=== PATIENT | female | born 1975 | race Caucasian/White ===

== ENCOUNTER 2022-05-23 14:02 | Outpatient (CLI) | payer OTHER, SELFPAY ==
--- NOTE | ~2022-05-23 | MMUS_ITS ---
EXAMINATION: MM diagnostic cristian BI w kimberly, US breast RT limited HISTORY: Palpable right breast abnormality superior aspect of the right breast TECHNIQUE: Additional 3-D tomosynthesis images of the breasts were performed and synthetic 2-D images were generated. CAD analysis was submitted and interpreted. High resolution Limited right breast ult rasound was performed. COMPARISON: No prior studies for comparison. BREAST PARENCHYMAL COMPOSITION: The breasts are heterogeneously dense, which may obscure small masses FINDINGS: MAMMOGRAPHIC FINDINGS: The left breast is stable without evidence for malignancy. There are focal asymmetries with ill-defin ed margins in the mid lateral aspect of the right breast. ULTRASOUND: Limited right breast ultrasound: At 9:00 there is a cluster of cysts measuring up to 9 mm in aggregat e, likely benign. At 12:00, 9 cm from the nipple there is an oval circumscribed hyperechoic mass mathew uring 1.9 cm with parallel orientation, no posterior features and no internal vascularity. At 12:00, 7 cm from the nipple there is an oval hyperechoic mass with parallel orientation, no internal vascula rity and no posterior features, both these likely represent benign lipomas. IMPRESSION: 1. Probable benign right breast masses. 2. Recommend 6 month follow-up diagnostic right mammogram and ultrasound. BI-RADS category 3, probably benign findings. Reviewed, dictated and finalized at location A. IMPRESSION: 1. Probable benign right breast masses. 2. Recommend 6 month follow-up diagnostic right mammogram and ultrasound. BI-RADS category 3, probably benign findings.
== END 2022-05-23 14:03 | disposition home or self-care (01) ==
LOC: ANHIMG 14:07
PROVIDERS: PCP Nurse Practitioner; Visit Provider Nurse Practitioner
DX: N63.0 Unspecified lump in unspecified breast (principal); R92.8 Other abnormal and inconclusive findings on diagnostic imaging of breast
CPT/HCPCS: 76642; 77062; 77066; G0279

== ENCOUNTER 2022-11-12 01:11 | Emergency (ER) | payer OTHER, SELFPAY ==
[2022-11-12 01:12] VITALS: BP 147/89; PULSE 77; RESP 16; TEMP 36.3; O2SAT 100
--- NOTE | 2022-11-12 04:18 | ED.GENADULT ---
HPI - General Adult General Chief complaint: Back Pain/Injury Stated complaint: sciatic nerve hurting really bad Time Seen by Provider: 11/12/22 03:55 History of Present Illness HPI narrative: Is a 46-year-old female who presents the emergency department with chief complaint of back pain and pain down the right leg. Patient reports she has prior history of sciatica and reports she started having pain in the lumbar region reports it radiates down to her right gluteal area down the right leg. Patient denies foot drop denies saddle anesthesia denies bowel or bladder incontinence and denies urinary retention. Patient reports no trauma reports no prior history of IVDA no prior history of recent dental work or valvular heart disease. Related Data Allergies Allergy/AdvReac Type Severity Reaction Status Date / Time No Known Allergies Allergy Unknown Verified 11/12/22 04:27 NKA TO FOOD MEDS DYES, OR Allergy Unknown Other Uncoded 11/12/22 04:27 LATEX. NO KNOWN DRUG ALLERGIES Allergy Y Uncoded 11/12/22 04:27 (Class Allergy) Review of Systems Review of Systems: A 10 system review of systems was completed on the patient and is negative except for what is stated in the HPI. Nursing and ancillary documentation was reviewed. [facility] Past Medical History Medical History Abnormal Pap smear of cervix 07/15/2018 lgsil +hpv Anxiety History of endometrial biopsy (05/25/19) HPV in female Hypertension Polycystic ovarian syndrome Surgical History Surgical History History of appendectomy (~2005) History of cholecystectomy (~2007) History of colposcopy with cervical biopsy 08/04/18 LGSIL ANDREA 1 History of dilation and curettage (05/19/02) 05/19/02 hscope d&c/dx lscope/chromopertubation--infertility History of laparoscopy (05/19/02) 05/19/02 hscope d&c/dx lscope/chromopertubation--infertility History of ovarian cystectomy History of tubal ligation (09/07/12) History of ventral hernia repair (03/13/20) incarcerated epigastric ventral hernia repair with mesh Family History Family History Mother Diabetes mellitus Hypertension Depressive disorder Daughter Depressive disorder Father Carcinoma of colon Exam Narrative: GENERAL: Well-appearing, well-nourished, and in no acute distress. HEAD: Normocephalic, atraumatic. EYES: PERRLA and EOMI. ENT: Nares clear, no rhinorrhea or epistaxis. Mucous membranes moist. NECK: Supple. CHEST: Clear to auscultation. No respiratory distress. HEART: Regular rate and rhythm. No murmur heard. Normal peripheral pulses. ABDOMEN: Soft, nontender, nondistended, normal active bowel sounds. EXTREMITIES: Normal range of motion. No edema. Tenderness to palpation of the right SI joint area. SKIN: Warm, dry, no rash. NEURO: No focal deficits. Alert and oriented x3. No saddle anesthesia, no foot drop PSYCH: Normal mood and affect. Course Vital Signs Vital signs: Vital Signs Temperature 36.3 C L 11/12/22 01:12 Pulse Rate 77 11/12/22 01:12 Respiratory Rate 16 11/12/22 01:12 Blood Pressure 147/89 H 11/12/22 01:12 Pulse Oximetry 100 11/12/22 01:12 Oxygen Delivery Room Air 11/12/22 01:12 Temperature 36.3 C L 11/12/22 01:12 Pulse Rate 77 11/12/22 01:12 Respiratory Rate 16 11/12/22 01:12 Blood Pressure 147/89 H 11/12/22 01:12 Pulse Oximetry 100 11/12/22 01:12 Oxygen Delivery Room Air 11/12/22 01:12 Medical Decision Making [facility] Narrative Medical decision making narrative: Differential diagnosis includes sciatica, cauda equina, epidural abscess. Patient is not febrile no history of IVDA no history of other intrinsic risk factors for epidural abscess. Patient has no focal neurological deficit. Patient has no signs of cauda equina with a negative foot dr
[2022-11-12] MEDS: ORPHENADRINE CITRATE 100 MG TABLET.ER PO (04:28)
[2022-11-12] MEDS: HYDROcodone/acetaminophen (*CRX) 5-325 MG TABLET 1 TAB PO (04:28)
[2022-11-12] MEDS: KETOROLAC 30 MG/ML VIAL (*BKC) IM (04:29)
[2022-11-12 04:50] VITALS: BP 138/70; PULSE 74; RESP 16; O2SAT 98
== END 2022-11-12 04:51 | disposition home or self-care (01) ==
PROVIDERS: Emergency Provider Emergency Medicine; PCP Internal Medicine
DX: M54.41 Lumbago with sciatica, right side (principal); I10 Essential (primary) hypertension; E28.2 Polycystic ovarian syndrome; Z90.49 Acquired absence of other specified parts of digestive tract
CPT/HCPCS: 96372; 99284; A9270; J1100; J1885

== ENCOUNTER 2024-01-09 19:45 | Emergency (ER) | payer OTHER, SELFPAY ==
--- NOTE | ~2024-01-09 | XR_ITS ---
XR chest 1V portable DATE: 01/09/2024 21:27 INDICATION: Upper respiratory infection TECHNIQUE: Portable upright AP chest on 01/05 3/2 and 24 at 2127 hours COMPARISON: None FINDINGS: Normal heart size. No hilar or mediastinal enlargement. No pulmonary infiltrate or consolidation, pleural effusion or pulmonary vascular congestion or pneumo thorax is detected. Included skeletal structures are unremarkable. Apparent surgical clips (motion) of, right upper quadrant, likely due to cholecystectomy. IMPRESSION: No active cardiopulmonary disease Reviewed, dictated and finalized at location A. [employer]
[2024-01-09 19:56] VITALS: BP 139/96; PULSE 102; RESP 20; TEMP 37.2; O2SAT 99
--- NOTE | 2024-01-09 21:18 | ED.URI ---
HPI - URI/Sore Throat General Chief Complaint: Upper Respiratory Infection Stated Complaint: upper resp Time Seen by Provider: 01/09/24 21:06 History of Present Illness HPI Narrative: 40-year-old female presenting to the emergency room with a chief complaint of chills body aches, nonproductive cough, sore throat, ear pain. She states that she felt similar 2 months prior was diagnosed with upper respiratory infection but was not given any kind antibiotic treatments according to herself. She states she has tried lczn-rvz-iirxvfd medications at home without any relief her symptoms. States that she had to call off work today for her illness. Denies any chest pain or difficulty in breathing but does note a cough and wrist takes deep breath. no measured fevers at home. She does have sick contacts and is present with her daughter as another patient here in the room. Related Data Allergies Allergy/AdvReac Type Severity Reaction Status Date / Time No Known Allergies Allergy Unknown Verified 01/09/24 20:04 NKA TO FOOD MEDS DYES, OR Allergy Unknown Other Uncoded 01/09/24 20:04 LATEX. NO KNOWN DRUG ALLERGIES Allergy Y Uncoded 01/09/24 20:04 (Class Allergy) Review of Systems Review of Systems: As reviewed above in H[facility] Past Medical History Medical History Abnormal Pap smear of cervix 07/15/2018 lgsil +hpv Anxiety History of endometrial biopsy (05/25/19) HPV in female Hypertension Polycystic ovarian syndrome Surgical History Surgical History History of appendectomy (~2005) History of cholecystectomy (~2007) History of colposcopy with cervical biopsy 08/04/18 LGSIL ANDREA 1 History of dilation and curettage (05/19/02) 05/19/02 hscope d&c/dx lscope/chromopertubation--infertility History of laparoscopy (05/19/02) 05/19/02 hscope d&c/dx lscope/chromopertubation--infertility History of ovarian cystectomy History of tubal ligation (09/07/12) History of ventral hernia repair (03/13/20) incarcerated epigastric ventral hernia repair with mesh Family History Family History Mother Diabetes mellitus Hypertension Depressive disorder Daughter Depressive disorder Father Carcinoma of colon Social History Social History Smoking status: Current every day smoker Do You Feel Safe in your Home?: Yes Lack of Transportation: YES Lack of Food: Sometimes True Current Housing: I Have Housing Concerned About Future Housing: No Difficulty Paying Gas/Electric Bills: No Difficulty Paying for Meds: YES Currently Unemployed: No Education: Decline to Answer Difficulty w/ Childcare or Family Care: No Exam Narrative: GENERAL: [Well-appearing, well-nourished, and in no acute distress.] HEAD: [Normocephalic, atraumatic.] EYES: [PERRLA and EOMI.] ENT: Nares clear, no rhinorrhea or epistaxis. Mucous membranes moist. congested-sounding in the upper airways NECK: Supple. CHEST: [Clear to auscultation. No respiratory distress.] no wheezing, rhonchi or rales HEART: [Regular rate and rhythm]. No murmur heard. [Normal peripheral pulses.] ABDOMEN: [Soft, nondistended], [nontender], [No rigidity or guarding] EXTREMITIES: Normal range of motion. [No edema.] SKIN: Warm, dry, no rash. NEURO: [No focal deficits]. Alert and oriented [x3.] PSYCH: [Normal mood and affect.] Course Vital Signs Vital signs: Vital Signs Temperature 37.2 C 01/09/24 19:56 Pulse Rate 102 H 01/09/24 19:56 Respiratory Rate 20 01/09/24 19:56 Blood Pressure 139/96 H 01/09/24 19:56 Pulse Oximetry 99 01/09/24 19:56 Oxygen Delivery Room Air 01/09/24 19:56 Temperature 37.2 C 01/09/24 19:56 Pulse Rate 102 H 01/09/24 19:56 Respiratory Rate 20 01/09/24 19:56 Blood Pressure 139/96 H 01/09/24 19:56 Pulse Oximetry 100 01/09/24 21:29 Oxygen Delivery Room Air 01/09/24 21:29 MDM - URI/Sore Throat MDM Narrative Medical decision making narrative: 48-year-old female presenting to the emergency depart with upper respiratory symptoms including cough, congestion, sore throat, ear pain and chills. No measurable fevers at home. Took COVID test that was negative at home. States it feels very similar to her recent upper respiratory infection 2 months prior. Does have positive sick contacts and is present with her daughter who was another patient in the emergency department presently for similar symptoms. Patient overall appears well, has no respiratory distress, clear lung sounds bilaterally, no wheezing, rhonchi or rales. She does have some congestion. has tried glrc-gzo-kxhkfik therapies at home without any relief of her symptoms. Symptoms going on for last 4 days. Patient overall appears well and likely has an upper respiratory infection versus bronchitis. Most likely viral etiology in nature however given the recent viral URI she could also be having superimposed infection that could be bacterial in nature but we will reassess after laboratory studies, strep swab, COVID fluid RSV swab and a chest x-ray. She was provide symptomatic relief with 60 mg of pseudoephedrine and Flonase in both nares. Patient felt some improvement after the Sudafed and Flonase. Her cover flu RSV and strep swabs were all negative. The chest x-ray was independent reviewed by myself and interpreted by radiology. No appreciable consolidations, mass, pneumonia or any other concerning features. No acute cardiothoracic process according to Radiology. Patient was inquired about antibiotics at this time given that she has failed outpatient bmad-iod-drjjvdw medications and this is her 2nd time having similar symptoms. Ultimately decision was made to send the patient with azithromycin Z-Tony to her preferred local pharmacy. We did discuss viral versus bacterial causes and recommended treatments for continued symptomatology at home including Flonase, Sudafed, Mucinex Or dextromethorphan as needed for cough. Script sent to her pharmacy and patient was stable for discharge home at this time. Medical Records Attestation: I reviewed the patient's medical records. Lab Data Attestation: I reviewed the patient's lab results. Labs: Lab Results 01/09/24 Range/Units 21:22 Influenza A (RT-PCR) Negative (Negative) Influenza B (RT-PCR) Negative (Negative) RSV (RT-PCR) Negative (Negative) SARS-CoV-2 RNA (RT-PCR) Negative (Negative) Group A Strep (PCR) Not detected (Negative) Imaging Data Attestation: I personally reviewed and interpreted this imaging study as follows: Radiologist's impression: Impressions Chest X-Ray 01/09/24 21:33 IMPRESSION: No active cardiopulmonary disease Discharge Plan Discharge Clinical Impression: Bronchitis, Upper respiratory infection Patient Disposition: Home, Self-Care Condition: Stable Instructions: Antibiotic Form, Upper Respiratory Infection (DC), Acute Bronchitis (ED) Additional Instructions: Please take the antibiotic as prescribed, qmdo-pjd-fugfqnz regimens at home including pseudoephedrine from the pharmacy, Mucinex, dextromethorphan as needed. Follow-up with your primary care provider. Prescriptions: New azithromycin [Zithromax TRI-TONY] 500 mg tablet 500 mg PO DAILY 5 Days Qty: 5 0RF No Action cyclobenzaprine 10 mg tablet 10 mg PO TID PRN (Reason: muscle spasm) Qty: 21 0RF prednisone 20 mg tablet 40 mg PO DAILY 5 Days Qty: 10 0RF Follow-up/Referrals: Brenna,Hardy Cardoza MD [Primary Care Provider] - Time of Disposition: 22:25
[2024-01-09 21:29] VITALS: O2SAT 100
[2024-01-09] MEDS: FLUTICASONE PROPIONATE 0.05% NA SPR 16 GM BTL (*BKC) 2 SPRAY NASAL (21:33)
[2024-01-09] MEDS: PSEUDOEPHEDRINE HCL 30 MG TABLET 60 MG PO (21:33)
[2024-01-09 21:52] LABS: Strep Group A RT-PCR NOT DETECTED (Negative)
[2024-01-09 22:07] LABS: Influenza A QL RT-PCR Negative (Negative); Influenza B QL RT-PCR Negative (Negative); RSV RNA, RT-PCR Negative (Negative); SARS-CoV-2 RNA PCR Negative (Negative)
== END 2024-01-09 22:40 | disposition home or self-care (01) ==
PROVIDERS: Physician Assistant; Emergency Provider Student in an Organized Health Care Education/Training Program; PCP Internal Medicine
DX: J06.9 Acute upper respiratory infection, unspecified (principal); J40 Bronchitis, not specified as acute or chronic; Z20.822 Contact with and (suspected) exposure to COVID-19; I10 Essential (primary) hypertension; E28.2 Polycystic ovarian syndrome; F17.200 Nicotine dependence, unspecified, uncomplicated; Z90.49 Acquired absence of other specified parts of digestive tract
CPT/HCPCS: 71045; 87637; 87651; 99283; A9270

== ENCOUNTER 2024-08-03 12:58 | Outpatient (CLI) | payer OTHER, MEDICAID, SELFPAY ==
[2024-08-03 14:15] LABS: Alanine Aminotransferase 50 U/L (6-35); Albumin Level 3.8 g/dL (3.5-5.1); Alkaline Phosphatase 129 U/L (38-126); Anion Gap 7 mmol/L (4-12); Aspartate Amino Transferase 40 U/L (14-36); Bilirubin,Total 0.3 mg/dL (0.2-1.3); Blood Urea Nitrogen 8 mg/dL (7-17); Calcium 8.7 mg/dL (8.4-10.2); Carbon Dioxide 21 mmol/L (22-30); Chloride 106 mmol/L (98-107); Estimated Glomerular Filt Rate > 60; Glucose 117 mg/dL (65-110); Potassium 3.8 mmol/L (3.4-5.0); Sodium 134 mmol/L (137-145); Total Protein 6.7 g/dL (6.3-8.2)
--- OUTSIDE RECORDS SUMMARY | 2024-08-03 14:39 | XMS_ITS | Data Portability ---
Author Organization [facility] [place] Address [address] [place] [address] Care Team Providers Care District Agent Name Role Phone CECILIA BANDA MD Primary Care Provider [phone] Assessment No assessment recorded. Plan of Treatment Reminders Order Date Submit Date Provider Last Modified By Organization Details Last Modified Time Details Appointments SURG PRE OP 2024 04:30P Gisselle YING MD Not available Not available Not available Robotic TLH 2024 10:30A Gisselle YING MD Not available Not available Not available SURG POST OP 2024 03:00P Gisselle YING MD Not available Not available Not available Lab None recorded. Referral None recorded. Procedures None recorded. Surgeries robotic assisted hysterect kim with salpingec nile (SURG) 2024 025 [id number] [facility], [address] [place] [address], [id number], 07/06/2024 15:29:27 total hysterect kim, laparosco pic, with bilateral salpingec nile (SURG) 2022 023 [email or web address] [facility], [address] [place] [address], [id number], 12/15/2022 20:04:57 Imaging None recorded. Medication Orders None recorded. Patient TargetsNo targets recorded. Patient InstructionsNo instructions recorded. Reason for Referral None Reported. Results Created Date Observation Date Name Description Value Unit Range Abnormal Flag Note LastModifiedBy Organization Detail LastModifiedTime 06/03/19 23 06/02/2022 CT/GC AND TRICH OMONA S VAGIN POOJA (RRNA ), URINE chlamydia trachomatis, PCR Negati ve negati ve Not Available [facility] (Lab) [address], [place], [address], 06/03/2022 12:45:56 06/03/19 23 06/02/2022 CT/GC AND TRICH OMONA S VAGIN POOJA (RRNA ), URINE neisseria gonorrhoeae, PCR Negati ve negati ve Not Available [facility] (Lab) [address], [place], [address], 06/03/2022 12:45:56 06/03/19 23 06/02/2022 CT/GC AND TRICH OMONA S VAGIN POOJA (RRNA ), URINE trichomonas vaginalis ribosomal RNA (rrna) Positi ve negati ve abnormal Prese nce of Trich omona s vagin pooja (by NANCY) Not Available [facility] (Lab) [address], [place], [address], 06/03/2022 12:45:56 07/18/19 23 07/17/2022 CT/GC AND TRICH OMONA S VAGIN POOJA (RRNA ), URINE chlamydia trachomatis, PCR Negati ve negati ve Not Available [facility] (Lab) [address], [place], [address], 07/18/2022 16:34:00 07/18/19 23 07/17/2022 CT/GC AND TRICH OMONA S VAGIN POOJA (RRNA ), URINE neisseria gonorrhoeae, PCR Negati ve negati ve Not Available [facility] (Lab) [address], [place], [address], 07/18/2022 16:34:00 07/18/19 23 07/17/2022 CT/GC AND TRICH OMONA S VAGIN POOJA (RRNA ), URINE trichomonas vaginalis ribosomal RNA (rrna) Negati ve negati ve Not Available [facility] (Lab) [address], [place], [address], 07/18/2022 16:34:00 07/25/19 23 07/24/2022 SURGI YURIY PATHO LOGY surgical pathology SEE RESULT S BELOW CASE REPOR T: Surgi yuriy Patho logy Repor t Case: Autho stefany vera Provi ioana: Thelma Ying MD Colle cted: 07/24 1745 Order ing Locat ion: [place] [facility] Recei ana maria: 07/25 0318 Patho logis t: Liliane Mendez MD Speci men: Endoc ervix , ECC FINAL DIAGN OSIS: Endoc ervix , curet tage: -Ecto cervi yuriy tissu e with low-g rade squam ous intra epith elial lesio n (ANDREA- 1). -Unre marka ble endoc ervic al tissu e Elect vern farley d by Liliane Mendez MD on 023 at 1:14 PM ----- ----- ----- ----- ----- ----- ----- ----- ----- ----- ----- ----- ----- ----- ----- ----- ----- ---- CLINI YURIY INFOR MATIO N: n87.9 MICRO SCOPI C DESCR IPTIO N: A micro scopi c exami natio n was perfo rmed. GROSS DESCR IPTIO N: A. Endoc ervix . The speci men is label ed with the patie nt's name, demog raphi cs ECC . Recei ana maria in forma keren is a 2.0 x 2.0 x 0.2 cm aggre gate of rivera-b rown tissu e mixed with mucoi d mater ial and blood clot. The entir e speci men is submi tted in one casse tte. Gross ed by [employer] Not Available [facility] (Lab) [address], [place], [address], 07/25/2022 14:17:43 10/22/19 23 05/23/2022 MAMMO , diagn ostic , digit al, bilat eral No observ ation record ed. [facility] [address], [place], [address], 10/24/2022 15:44:53 Result Notes None recorded. Procedures Surgical History Date Name Laterality Status Provider Name and Address Organization Details Recorded Time 07/25/19 23 Colposcopy completed Reddy Ying MD [address], [place], [address], [facility] 07/24/2022 20:42:58 07/25/[address] [facility] 07/24/2022 16:46:39 07/19/19 23 Colposcopy completed [facility] 05/04/2024 16:06:24 03/20/19 23 Date of Last Pap Smear completed [facility] 07/23/2022 14:31:05 02/16/19 20 Endometrial Ablation completed [facility] 05/04/2024 16:07:48 Tubal Ligation completed [facility] 07/24/2022 16:46:49 Appendectomy completed [facility] 07/24/2022 16:46:56 Imaging Results None recorded. Procedure Notes None recorded. Medical Equipment None Reported. Allergies Allergen ID Allergen Name Allergen Category Reaction Reaction Severity Criticality Documentation Date Start Date Code Code System Note Provider Name and Address Organization Details Recorded Time tramadol medicatio n Not available Not available Not available 06/05/2022 08620 RxNorm Lexi Talbert [facility] 15:30:34 Medications Name Sig Start Date Stop Date Status Note LastModified by Organization Details LastModified Time medroxyprog esterone 10 mg tablet TAKE 1 TABLET BY MOUTH EVERY DAY 03/20 completed Not Available Not Available Not Available prednisone 10 mg tablet TAKE 1 TAB BY MOUTH 3 TIMES A DAY X 3 DAYS, 1 TAB 2 TIMES A DAY X 2 DAYS,1 TAB ONCE X1 DAY 03/20 completed Not Available Not Available Not Available doxycycline hyclate 100 mg capsule TAKE 1 CAPSULE BY MOUTH TWICE A DAY FOR 7 DAYS 07/17 completed Not Available Not Available Not Available azithromyci n 250 mg tablet TAKE 2 TABLETS BY MOUTH TODAY, THEN TAKE 1 TABLET DAILY FOR 4 DAYS 05/04 completed Not Available Not Available Not Available ibuprofen 800 mg tablet TAKE 1 TABLET BY MOUTH EVERY 8 HOURS 03/20 completed Not Available Not Available Not Available benzonatate 200 mg capsule TAKE 1 CAPSULE BY MOUTH THREE TIMES A DAY NEEDED 03/20 completed Not Available Not Available Not Available valacyclovi r 1 gram tablet TAKE 2 TABLETS BY MOUTH EVERY 12 HOURS FOR 1 DAY 05/04 completed Not Available Not Available Not Available meclizine 12.5 mg tablet TAKE 1 TABLET 3 TIMES A DAY BY ORAL ROUTE. 03/20 completed Not Available Not Available Not Available metronidazo le 500 mg tablet TAKE 1 TABLET BY MOUTH TWICE A DAY FOR 7 DAYS 07/17 completed Not Available Not Available Not Available amlodipine 5 mg tablet TAKE 1 TABLET BY MOUTH EVERY DAY FOR 30 DAYS 05/04 completed Not Available Not Available Not Available acyclovir 400 mg tablet TAKE 1 TABLET BY MOUTH EVERY 8 HOURS 03/20 completed Not Available Not Available Not Available tramadol 50 mg tablet TAKE 1 TABLET BY MOUTH EVERY 6 TO 8 HOURS NEEDED 03/20 completed Not Available Not Available Not Available ondansetron 8 mg disintegrat ing tablet DISSOLVE 1 TABLET ON TONGUE TWICE A DAY FOR 2 DAYS 07/17 completed Not Available Not Available Not Available pantoprazol e 40 mg tablet,mary yed release TAKE 1 TABLET BY MOUTH EVERY DAY 03/20 completed Not Available Not Available Not Available lisinopril 20 mg-hydrochl orothiazide 25 mg tablet 2024 active Not Available Not Available Not Avai lable montelukast 10 mg tablet 03/20 completed Not Available Not Available Not Available levofloxaci n 500 mg tablet 03/20 completed Not Available Not Available Not Available methylpredn isolone 4 mg tablets in a dose pack TAKE 6 TABLETS ON DAY 1 DIRECTED ON PACKAGE AND DECREASE BY 1 TAB EACH DAY FOR A TOTAL OF 6 DAYS 05/04 completed Not Available Not Available Not Available ondansetron 4 mg disintegrat ing tablet PLACE 2 TABLETS ON TONGUE 3 TIMES A DAY NEEDED. 03/20 completed Not Available Not Available Not Available fluticasone propionate 50 mcg/actuati on nasal spray,suspe nsion ADMINISTE R 2 SPRAYS INTO EACH NOSTRIL EVERY DAY 05/04 completed Not Available Not Available Not Available doxycycline hyclate 100 mg tablet TAKE 1 TABLET BY MOUTH 2 TIMES PER DAY FOR 14 DAYS 05/04 completed Not Available Not Available Not Available naproxen 500 mg tablet TAKE 1 TABLET BY MOUTH TWICE A DAY 03/20 completed Not Available Not Available Not Available azithromyci n 500 mg tablet TAKE 1 TABLET BY MOUTH EVERY DAY FOR 5 DAYS 05/04 completed Not Available Not Available Not Available cyclobenzap rine 5 mg tablet TAKE 1 TABLET 3 TIMES A DAY BY ORAL ROUTE. 03/20 completed Not Available Not Available Not Available Vitals Date Recorded Body height Body mass index (BMI) Body weight Systolic blood pressure Diastolic blood pressure Provider Name and Address Organization Details Last Updated DateTime 05/04/2024 162.56 cm 39.5 kg/m2 171434.2 5 g 145 mm[Hg] 82 mm[Hg] Isabel Ty [facility] 16:02:54 Date Recorded Body height Systolic blood pressure Diastolic blood pressure Provider Name and Address Organization Details Last Updated DateTime 06/02/2022 162.56 cm 155 mm[Hg] 98 mm[Hg] Dianne Nuñez [facility] 06/02/2022 15:02:11 Date Recorded Body height Body mass index (BMI) Body weight Systolic blood pressure Diastolic blood pressure Provider Name and Address Organization Details Last Updated DateTime 07/17/2022 162.56 cm 41 kg/m2 718705.5 8 g 146 mm[Hg] 96 mm[Hg] Sarah Martins [facility] 3 14:55:15 Date Recorded Body height Body mass index (BMI) Body weight Systolic blood pressure Diastolic blood pressure Provider Name and Address Organization Details Last Updated DateTime 07/24/2022 162.56 cm 40.7 kg/m2 621005.3 9 g 164 mm[Hg] 103 mm[Hg] Yolanda [facility] 3 15:32:22 Date Recorded Body height Body mass index (BMI) Body weight Systolic blood pressure Diastolic blood pressure Provider Name and Address Organization Details Last Updated DateTime 11/07/2022 162.56 cm 40.5 kg/m2 345624.8 g 164 mm[Hg] 96 mm[Hg] Yolanda [facility] 3 14:43:40 Social History Question Answer Notes LastModified by [employer] Details LastModified Time Tobacco Smoking Status Never [facility]oker [facility] 03/20/2022 11:35:47 Are You Blind Or Do You Have Difficulty Seeing? No Information n ot available 03/20/2022 In The 14 Days Before Symptom Onset, Have You Had Close Contact With A Laboratory-confirm ed COVID-19 While That Case Was Ill? No [email or web address] Information n ot available 07/17/2022 In The 14 Days Before Symptom Onset, Have You Had Close Contact With A Person Who Is Under Investigation For COVID-19 While That Person Was Ill? No [email or web address] Information not available 07/17/2022 Have You Been To An Area Known To Be High Risk For COVID-19? No [email or web address] Information not available 07/17/2022 Are You Deaf Or Do You Have Serious Difficulty Hearing? No Information not available 03/20/2022 What Type Of Diet Are You Following? REGULAR Information n ot available 03/20/2022 Do You Have Difficulty Walking Or Climbing Stairs? No Information not available 03/20/2022 Sex: Unknown Functional Status Question Answer Note LastModified by [employer] ion Details LastModified Time What is your level of alcohol consumption? None Information not available 03/20/2022 Are you able to walk? YESWOREST Information not available 03/20/2022 Are you able to care for yourself? Yes Information not available 03/20/2022 Do you have difficulty dressing or bathing? No Information not available 03/20/2022 What is your exercise level? None Information not available 03/20/2022 Mental Status None recorded. Family History Relationship Description Onset Age of this Age Resolved Age Notes LastModified by Organization Details LastModified Time Mother Diabetes mellitus [email or web address] Not available 03/2022 11:35:01 Mother Essential hypertension [email or web address] Not available 03/20/2022 11:35:10 Medical History Condition Response Allergies (Food, seasonal, environmental ) N Other N Breast Cancer N Drug/Latex Allergies/Reactions N Blood Transfusion N Dermatologic Disorders N Lung Disease N Defects or Inherited Disease N Breast Problem N Gestational Diabetes N Hematologic disorders N Anesthesia Complications N History of STI Y Deep Vein Thrombosis N Polycystic ovary syndrome N Anxiety Disorder N Autoimmune disease N Arthritis N Infertility N Polyps N Acid Reflux (GERD) N History of abnormal pap Y Cancer N Stroke N Varicosities N Neurologic/Epilepsy N Endometriosis N High Cholesterol N Headaches N Fibromyalgia N Kidney Disease N Heart Problems N Kidney or Bladder Problems N Thyroid Problems N GI Problems N Eating Disorder N Anemia N Art (IVF or FET) N Psychiatric Illness N Ovarian Cancer N Diabetes N Pulmonary (TB, Asthma) N Hepatitis/Liver Disease N No Past Medical History N Eczema N Urinary Tract Infection N Abuse/Domestic Violence N Asthma N Trauma/Violence N Depression/ depression N Heart Disease N Pre-Eclampsia N Hypertension Y Osteoporosis N Thrombophilias N Gynecological History Statement/Question Response Abnormal Pap Y Flow Heavy Date of LMP 04/27/2024 STIs/STDs Y HPV Vaccine N Colposcopy 07/18/2022 Duration of Flow (days) 6 Current Control Method Tubal Ligat ion Are cycles usually normal Y Frequency of Cycle (Q days) 28 Sexually Active? Y Menses Monthly Y Age of first menstrual cycle 13 Date of Last Pap Smear 03/20/2022 Sexual Problems? N Desired Control Method Hysterectom y LMP Approximate Obstetrics History GPAL:G 5 P 0 0 0 5 Type Value Living 5 Total 5 Past Encounters Encounter ID Performer Location Encounter Start Date Encounter Closed Date Diagnosis/Indication Diagnosis SNOMED-CT Code Diagnosis ICD10 Code Diagnosis Note [id number] Bharati KATHY Hare [place] [address] [address] 03/20/2022 11:05:14 03/20/2022 15:14:03 Breast lump 47750571 N63.0 Abnormal u terine bleeding 0352507164 9100 N93.9 Skin tag 366531860 L91.8 Irregular bowel habits 281580687 R19.4 Hemorrhoids 75088089 K64 .9 Gynecologi c examination 56460239 Z01.419 Suggested Calcium with Vitamin D 1200-1500m g daily. Patient advised to get an annual flu shot in the fall and she could obtain at [facility] or [facility] care clinic. Also to obtain TDap vaccinatio n if you have not had one in the last 10 years. Recommend yearly mammograms . Encouraged monthly self breast exams. Encourage safe sexual practices, to use condoms and limit partners if not already in a monogamous relationsh ip. Engage in daily exercise of low impact aerobic exercise 45-60 minutes 4-5 times weekly. Avoid tobacco and illicit drugs as well as using moderation with alcohol intake less than 1-2 8 oz beverages daily. This lifestyle behavior pattern will lead to less health conditions and longer life span. If BMI greater than 25 weight watchers or dietary consult advised. All questions have been answered. Patient appears to understand informatio n, but if you have any questions please call or respond to this email. [facility]. Periods continue to be heavy, no change since her ablation. Lasting 4 days, changing pads every 20 minutes on the first 2 days of her period. She often has accidents. We discussed further evaluation need, pelvic u/s and labs orderedRec ords release signedHx of abnormal pap smear with colposcopy in 2020, unsure result. No paps sincePap done todaySTI testing added to papSkin tag noted on vulva, we discussed removal optionshem orrhoids on and off x 1 year. We discussed stool softners, increase fiber, increase water. Referral sent to colorectal surgery and GI. Has not had a colonoscop y yet.Breast lump felt in right breast at 1 o'clock, noticed 3 months ago per patient. Breast imaging ordered.Flagr testing discussedB P elevated. States she is seeing PCP for BP checks weekly due to uncontroll ed HTN. She checks it at home. No symptoms. ED precaution s discussed. She has f/u with PCP scheduled. RTC for pelvic u/s and f/u appointmen t Time spent in visit is a total of 50 mins with at least 50% of visit consisting of counseling and review of plan of care. [id number] Reddy Ying MD [place] [address],[place] [address] 04/15/2022 14:09:30 04/15/2022 15:37:50 Abnormal uterine bleeding 4795716992 9100 N93.9 [id number] Reddy Ying MD [place] [address],[place] [address] 04/23/2022 15:36:47 04/23/2022 16:44:20 Infection by Trichomonas 24834380 A59.9 Menorrhagia 706601627 N9 2.0 Uterine leiomyoma 261638 05 D25.9 this patient is a 46-year-ol d female who presents for follow-up on Trichomona s. She is unable to tolerate metronidaz ole. She keeps vomiting with. We going to try to dissolve 1 dose of 2 g. We talked about menorrhagi a and fibroids. We spent over 40 minutes face-to-fa ce. More than 50% was counseling . Talked about treatment of Trichomona s and intolerant person due to GI symptoms. We talked about uterine fibroids, menorrhagi a, treatment options, surgical options,. Patient status post ablation. We talked about hysterecto my. She will return discussed treatment options and make a decision. She will return for test of cure. [id number] KATHY Booker [place] [address],[place] [address] 06/02/2022 14:55:00 06/02/2022 16:04:47 Infection by Trichomonas 69894898 A59.9 [facility] GC/CT/Tric h sentcondom use encouraged BP elevated. States she has had blurry vision/hea daches on and off for the past few days. States she has notified PCP of this. Recommende d ED visit for further evaluation . Has someone to take her, declines transport. Needs to f/u with PCP after ED visit Time spent in visit is a total of 20 mins with at least 50% of visit consisting of counseling and review of plan of care. Venereal d isease screening 329811852 Z11.3 [id number] KATHY Booker [place] [address],[place] [address] 07/17/2022 14:46:37 07/17/2022 15:29:41 Infection by Trichomonas 49194598 A59.9 [place] sentcondom use encouraged has colpo scheduled - encouraged to attend this appointmen t Time spent in visit is a total of 15 mins with at least 50% of visit consisting of counseling and review of plan of care. BP precaution s discussed, she is following with PCP Venereal d isease screening 646510392 Z11.3 [id number] Reddy Ying MD [place] [address],[place] [address] 07/24/2022 15:18:35 07/25/2022 13:30:23 Abnormal cervical Papanicolaou smear 732203837 R87.619 colposcopy was performed. It was unsatisfac tory exam. Aceto-whit e epithelium peeled to be at the central portion of the cervix the external os. It was well sampled with endocervic al curettage. [id number] Reddy Ying MD [place] [address],[place] [address] 11/07/2022 14:29:06 11/07/2022 15:19:25 Menorrhagia 054115289 N92.0 This patient is a 46-year-ol d female with severe menorrhagi a. She has failed endometria l ablation. She would like definitive surgical treatment. She has bleeding that is affecting her quality of life, activities daily living, her interperso nal relationsh ips, relationsh ips with her children. She would like to move forward with hytatments terectomy. We will perform total laparoscop ic hysterecto my bilateral salpingo-o ophorectom y. Spent 40 minutes face-to-fa ce. I explained the procedure in detail. More than 50% was counseling . We agreed to proceed with surgery. patient has 1 very large uterine fibroid. We discussed myomas. We discussed the etiology, natural history, Uterine leiomyoma 069002 05 D25.9 [id number] Reddy Ying MD [place] [address] [address] 05/04/2024 15:33:44 05/04/2024 16:35:03 Menorrhagia 582049129 N92.0 This patient is a 48-year-ol d female presents for heavy vaginal bleeding. She has longstandi ng very heavy bleeding. Her menses are regular. However, they require double protection . Patient has accidents, getting blood on her bedding and clothing. Is affected work. She changes a pad or tampon every hour. She leaks blood around the pad and tampon. This bleeding has a profound impact on her quality of life and her activities of daily living. Patient has large uterine myoma. We discussed treatment options. The treatment of choice here is hysterecto my. We agreed to robotic assisted hysterecto my with bilateral salpingect kim. The patient understand s the procedure. The procedure was described to the patient in great detail. the patient also understand s the risks. The risks were also explained in detail. She understand s that injuries May occur during surgery. She understand s these injuries can result in hospitaliz ation, more surgery, and severe illness. She understand s there is risk of hemorrhage and infection. I spent more than 30 minutes on the patient's care in total. Patient has stress incontinen ce, likely mixed urinary incontinen ce, she is to see Dr. La. We will make referral. Health Concerns Section Related Observation LastModified by Organization Detai ls LastModified Time None Recorded Concern Status LastModified by Organization Details LastModified Time None Recorded Advance Directives Directive None Recorded Payers Insurance Date Sequence Insurance Name Policy Number Policy Martin Covered Member ID Martin Member ID Guarantor Name 08/02/2024 1 [employer] [id number] Tess Arzatefidencio [id number] Tess Maria Isabel 07/06/2024 2 [place] [employer]PARTMENT OF PUBLIC AID Tess Nicolas [id number] Tess Nicolas 07/06/2024 2 [facility] - DOS ON OR AFTER 20 (MEDICAID REPLACEMENT - HMO) Tess Nicolas [id number] Tess Nicolas 07/06/2024 2 [facility] (MEDICAID HMO) Tess Nicolas [id number] Tess Nicolas 05/04/2024 1 [facility] - DOS ON OR AFTER 20 (MEDICAID REPLACEMENT - HMO) Tess Nicolas [id number] Tess Nicolas Notes Date Note Type Note Provider Name and Address Organization Details Recorded Time 06/02/2022 text/html 46yopresents for SHELLEY, (+) trichomonas 03/20/2022ompleted medication course, has not had IC sinceno symptoms, scheduled for colposcopy next week KATHY Booker [address], [place], [address], [facility] 06/02/2022 15:45:30 07/17/2022 text/html 46yopresents for TOCcompleted treatment, no longer with partnerno vaginal d/c, odors, itching KATHY Booker [address], [place], [address], [facility] 07/17/2022 15:27:55 07/24/2022 text/html 46-year-old fema timur who presents for colposcopy. Reddy Ying MD [address], [place], [address], [facility] 07/24/2022 20:45:01 11/07/2022 text/html This patient is a 46-year-old female with severe menorrhagia. She has failed endometrial ablation. She would like definitive surgical treatment. She has bleeding that is affecting her quality of life, activities daily living, her interpersonal relationships, relationships with her children. She would like to move forward with hytatmentsterectomy . We will perform total laparoscopic hysterectomy bilateral salpingo-oophorecto my. Spent 40 minutes [id number]. I explained the procedure in detail. More than 50% was counseling. We agreed to proceed with surgery. patient has 1 very large uterine fibroid. We discussed myomas. We discussed the etiology, natural history, Reddy Ying MD [address], [place], [address], [facility] 11/07/2022 15:18:48 05/04/2024 text/html This patient is a 48-year-old female presents for heavy vaginal bleeding. She has longstanding very heavy bleeding. Her menses are regular. However, they require double protection. Patient has accidents, getting blood on her bedding and clothing. Is affected work. She changes a pad or tampon every hour. She leaks blood around the pad and tampon. This bleeding has a profound impact on her quality of life and her activities of daily living. Patient has large uterine myoma. We discussed treatment options. The treatment of choice here is hysterectomy. We agreed to robotic assisted hysterectomy with bilateral salpingectomy. The patient understands the procedure. The procedure was described to the patient in great detail. the patient also understands the risks. The risks were also explained in detail. She understands that injuries May occur during surgery. She understands these injuries can result in hospitalization, more surgery, and severe illness. She understands there is risk of hemorrhage and infection. I spent more than 30 minutes on the patient's care in total. Reddy Ying MD [address], [place], [id number], [facility] 05/04/2024 16:32:26 OBGyn Episode Ob Episode Information Episode Created Date Number of Fetuses Patient Bloodtype Patient rh Status Prepregnancy Weight lbs Domestic Partner Domestic Partner Phone Father Name Press Reader Status 03/20/19 23 1 CLOSED Fetus Data First Name Last Name Admitted to NICU Weight (g) Sex Living Outcome Pediatric Complications Fetus ID Race Codes Race Delivery Type [id number] Vaginal Delivery Kings Calculation Initial Kings Date Initial Exam Date Initial Exam Provider Initial Ultrasound Date Last Menstrual Period Date Ultra Sound Weeks Gestation 0 Eighteen To Twenty Week Kings Update Ultra Sound Date Fundal Height At Umbil Quickening Date Ultra Sound Latest Weeks Gestation Final Kings Confirmed By Final Kings Confirmed Date Final Kings Date Ultra Sound Latest Days Gestation 0 0 Menstrual History Last Menstrual Date Menses Monthly On Bcp Conception Prior Menses Frequency Hcg Plus Date Menarche Onset Age Delivery Information Delivery Date Delivery Type Labor Anesthesia Weeks Gestation Incision Type Labor Labor Length Hrs Delivered By Post Complications Tubal Sterilization Discharge Date Comments 3 Discharge Information Feeding Method Contraceptive Method Maternal HG B and HCT Levels Ob Episode Information Episode Created Date Number of Fetuses Patient Bloodtype Patient rh Status Prepregnancy Weight lbs Domestic Partner Domestic Partner Phone Father Name Press Reader Status 03/20/19 1 CLOSED Fetus Data First Name Last Name Admitted to NICU Weight (g) Sex Living Outcome Pediatric Complications Fetus ID Race Codes Race Delivery Type [id number] Vaginal Delivery Kings Calculation Initial Kings Date Initial Exam Date Initial Exam Provider Initial Ultrasound Date Last Menstrual Period Date Ultra Sound Weeks Gestation 0 Eighteen To Twenty Week Kings Update Ultra Sound Date Fundal Height At Umbil Quickening Date Ultra Sound Latest Weeks Gestation Final Kings Confirmed By Final Kings Confirmed Date Final Kings Date Ultra Sound Latest Days Gestation 0 0 Menstrual History Last Menstrual Date Menses Monthly On Bcp Conception Prior Menses Frequency Hcg Plus Date Menarche Onset Age Delivery Information Delivery Date Delivery Type Labor Anesthesia Weeks Gestation Incision Type Labor Labor Length Hrs Delivered By Post Complications Tubal Sterilization Discharge Date Comments 6 Discharge Information Feeding Method Contraceptive Method Maternal HG B and HCT Levels Ob Episode Information Episode Created Date Number of Fetuses Patient Bloodtype Patient rh Status Prepregnancy Weight lbs Domestic Partner Domestic Partner Phone Father Name Press Reader Status 03/20/19 1 CLOSED Fetus Data First Name Last Name Admitted to NICU Weight (g) Sex Living Outcome Pediatric Complications Fetus ID Race Codes Race Delivery Type [id number] Vaginal Delivery Kings Calculation Initial Kings Date Initial Exam Date Initial Exam Provider Initial Ultrasound Date Last Menstrual Period Date Ultra Sound Weeks Gestation 0 Eighteen To Twenty Week Kings Update Ultra Sound Date Fundal Height At Umbil Quickening Date Ultra Sound Latest Weeks Gestation Final Kings Confirmed By Final Kings Confirmed Date Final Kings Date Ultra Sound Latest Days Gestation 0 0 Menstrual History Last Menstrual Date Menses Monthly On Bcp Conception Prior Menses Frequency Hcg Plus Date Menarche Onset Age Delivery Information Delivery Date Delivery Type Labor Anesthesia Weeks Gestation Incision Type Labor Labor Length Hrs Delivered By Post Complications Tubal Sterilization Discharge Date Comments 1 Discharge Information Feeding Method Contraceptive Method Maternal HG B and HCT Levels Ob Episode Information Episode Created Date Number of Fetuses Patient Bloodtype Patient rh Status Prepregnancy Weight lbs Domestic Partner Domestic Partner Phone Father Name Press Reader Status 03/20/19 23 1 CLOSED Fetus Data First Name Last Name Admitted to NICU Weight (g) Sex Living Outcome Pediatric Complications Fetus ID Race Codes Race Delivery Type [id number] Vaginal Delivery Kings Calculation Initial Kings Date Initial Exam Date Initial Exam Provider Initial Ultrasound Date Last Menstrual Period Date Ultra Sound Weeks Gestation 0 Eighteen To Twenty Week Kings Update Ultra Sound Date Fundal Height At Umbil Quickening Date Ultra Sound Latest Weeks Gestation Final Kings Confirmed By Final Kings Confirmed Date Final Kings Date Ultra Sound Latest Days Gestation 0 0 Menstrual History Last Menstrual Date Menses Monthly On Bcp Conception Prior Menses Frequency Hcg Plus Date Menarche Onset Age Delivery Information Delivery Date Delivery Type Labor Anesthesia Weeks Gestation Incision Type Labor Labor Length Hrs Delivered By Post Complications Tubal Sterilization Discharge Date Comments 5 Discharge Information Feeding Method Contraceptive Method Maternal HG B and HCT Levels Ob Episode Information Episode Created Date Number of Fetuses Patient Bloodtype Patient rh Status Prepregnancy Weight lbs Domestic Partner Domestic Partner Phone Father Name Press Reader Status 03/20/19 23 1 CLOSED Fetus Data First Name Last Name Admitted to NICU Weight (g) Sex Living Outcome Pediatric Complications Fetus ID Race Codes Race Delivery Type [id number] Vaginal Delivery Kings Calculation Initial [place] Date Initial Exam Date Initial Exam Provider Initial Ultrasound Date Last Menstrual Period Date Ultra Sound Weeks Gestation 0 Eighteen To Twenty Week Kings Update Ultra Sound Date Fundal Height At Umbil Quickening Date Ultra Sound Latest Weeks Gestation Final Kings Confirmed By Final Kings Confirmed Date Final Kings Date Ultra Sound Latest Days Gestation 0 0 Menstrual History Last Menstrual Date Menses Monthly On Bcp Conception Prior Menses Frequency Hcg Plus Date Menarche Onset Age Delivery Information Delivery Date Delivery Type Labor Anesthesia Weeks Gestation Incision Type Labor Labor Length Hrs Delivered By Post Complications Tubal Sterilization Discharge Date Comments 6 Discharge Information Feeding Method Contraceptive Method Maternal HG B and HCT Levels
--- OUTSIDE RECORDS SUMMARY | 2024-08-03 14:39 | XMS_ITS | Data Portability ---
Author Organization [facility] Address [address] [place] [id number] Assessment No assessment recorded. Plan of Treatment Reminders Order Date Submit Date Provider Last Modified By Organization Details Last Modified Time Details Appointments None recorded. Lab vitamin D, 25-hydroxy, total, serum 2023 024 [facility], [address] [place] [address], [address], [place], [address], 4 08:38:35 lipid panel, serum 2023 024 [facility], [address] [place] [address], [address], [place], [address], 4 20:09:17 CMP, serum or plasma 2023 024 [facility], [address] [place] [address], [address], [place], [address], 4 20:09:18 CBC 2023 024 [facility], [address] [place] [address], [address], [place], [address], 4 20:09:18 Referral gastroenter ologist referral 2023 024 angie Loja MD, [address] [facility], [address], [place], [address], 4 17:15:31 ski base trimmer referral 2023 024 gracia Tripathi DPM, [address] [facility], [address], [place], [address], 4 00:11:51 Procedures None recorded. Surgeries None recorded. Imaging XR, knee, 3 view 2023 024 [facility] ([facility]), [address] [facility], [place], [address], 4 09:50:11 Medication Orders ibuprofen 600 mg tablet 2023 024 [id number], [address] [place], [address], 4 12:03:19 lisinopril 20 mg-hydrochl orothiazide 25 mg tablet 2023 024 [facility], [address] [place], [address], 4 12:03:19 Patient TargetsNo targets recorded. 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 Family history of cancer of colon Referring Physician: Saul Arambula, Internal Medicine, Encounter Date: 02/25/2023 Results Created Date Observation Date Name Description Value Unit Range Abnormal Flag Note LastModifiedBy Organization Detail LastModifiedTime 02/25/19 24 02/25/2023 LIPID PANEL cholesterol, total 191 mg/dL 100-19 9 Not Available [facility] Department [address] [place] [address], [address], 02/25/2023 20:09:17 02/25/19 24 02/25/2023 LIPID PANEL triglyceride s 123 mg/dL 0-149 Not Available [facility] Department [address] [place] [address], [address], 02/25/2023 20:09:17 02/25/19 24 02/25/2023 LIPID PANEL HDL cholesterol 55 mg/dL 40-999 Not Available [facility] Department [address] [place] [address], [address], 02/25/2023 20:09:17 02/25/19 24 02/25/2023 LIPID PANEL VLDL cholesterol yuriy 25 mg/dL 5-40 Not Available [facility] Department [address] [place] [address], [address], 02/25/2023 20:09:17 02/25/19 24 02/25/2023 LIPID PANEL LDL chol calc (nih) 129 mg/dL 0-99 above high normal Not Available [facility] Department [address] [place] [address], [address], 02/25/2023 20:09:17 02/25/19 24 02/25/2023 COMP. METAB OLIC PANEL (14) glucose 102 mg/dL 70-99 above high normal Not Available [facility] Department [address] [place] [address], [address], 02/25/2023 20:09:18 02/25/19 24 02/25/2023 COMP. METAB OLIC PANEL (14) BUN 6 mg/dL 6-24 Not Available [facility] Department [address] [place] [address], [address], 02/25/2023 20:09:18 02/25/19 24 02/25/2023 COMP. METAB OLIC PANEL (14) creatinine 0.70 mg/dL 0.76-1 .27 below low normal Not Available [facility] Department [address] [place] [address], [address], 02/25/2023 20:09:18 02/25/19 24 02/25/2023 COMP. METAB OLIC PANEL (14) eGFR 107 >=60 Units for eGFR value s are mL/mi n/1.7 3 The eGFR Calcu latio n has not been valid ated for patie nts under the age of 18. If test resul ts are displ ayed for a patie nt under the age of 18, disre анна that value . Not Available [facility] Department [address] [place] [address], [address], 02/25/2023 20:09:18 02/25/19 24 02/25/2023 COMP. METAB OLIC PANEL (14) BUN/creatini ne ratio 9 9-23 Not Available [facility] Department [address] [place] [address], [address], 02/25/2023 20:09:18 02/25/19 24 02/25/2023 COMP. METAB OLIC PANEL (14) sodium 139 mmol/ L 134-14 4 Not Available [facility] Department [address] [place] [address], [address], 02/25/2023 20:09:18 02/25/19 24 02/25/2023 COMP. METAB OLIC PANEL (14) potassium 4.8 mmol/ L 3.5-5. 2 Not Available [facility] Department [address] [place] [address], [address], 02/25/2023 20:09:18 02/25/19 24 02/25/2023 COMP. METAB OLIC PANEL (14) chloride 106 mmol/ L 96-106 Not Available [facility] Department [address] [place] [address], [address], 02/25/2023 20:09:18 02/25/19 24 02/25/2023 COMP. METAB OLIC PANEL (14) carbon dioxide, total 24 mmol/ L 20-29 Not Available [facility] Department [address] [place] [address], [place], [address], 02/25/2023 20:09:18 02/25/19 24 02/25/2023 COMP. METAB OLIC PANEL (14) calcium 9.4 mg/dL 8.7-10 .2 Not Available [facility] Department [address] [place], [address], 02/25/2023 20:09:18 02/25/19 24 02/25/2023 COMP. METAB OLIC PANEL (14) protein, total 6.7 g/dL 6.0-8. 5 Not Available [facility] Department [address] [place], [address], 02/25/2023 20:09:18 02/25/19 24 02/25/2023 COMP. METAB OLIC PANEL (14) albumin 4.0 g/dL 3.9-4. 9 Not Available [facility] Department [address] [place], [address], 02/25/2023 20:09:18 02/25/19 24 02/25/2023 COMP. METAB OLIC PANEL (14) globulin, total 2.7 g/dL 1.5-4. 5 Not Available [facility] Department [address] [place], [address], 02/25/2023 20:09:18 02/25/19 24 02/25/2023 COMP. METAB OLIC PANEL (14) A/G ratio 2.0 1.2-2. 2 Not Available [facility] Department [address] [place], [address], 02/25/2023 20:09:18 02/25/19 24 02/25/2023 COMP. METAB OLIC PANEL (14) bilirubin, total 0.3 mg/dL 0.0-1. 2 Not Available [facility] Department [address] [place], [address], 02/25/2023 20:09:18 02/25/19 24 02/25/2023 COMP. METAB OLIC PANEL (14) alkaline phosphatase 129 IU/L 44-121 above high normal Not Available [facility] Department [address] [place] [address], [address], 02/25/2023 20:09:18 02/25/19 24 02/25/2023 COMP. METAB OLIC PANEL (14) AST (SGOT) 21 IU/L 0-40 Not Available [facility] Department [address] [place] [address], [address], 02/25/2023 20:09:18 02/25/19 24 02/25/2023 COMP. METAB OLIC PANEL (14) ALT (SGPT) 21 IU/L 0-32 Not Available [facility] Department [address] [place] [address], [address], 02/25/2023 20:09:18 02/25/19 24 02/25/2023 CBC, PLATE LET, NO DIFFE RENTI AL WBC 9.4 x10e3 /uL 3.4-10 .8 Not Available [facility] Department [address] [place] [address], [address], 02/25/2023 20:09:18 02/25/19 24 02/25/2023 CBC, PLATE LET, NO DIFFE RENTI AL RBC 4.71 x10e6 /uL 3.77-5 .28 Not Available [facility] Department [address] [place] [address], [address], 02/25/2023 20:09:18 02/25/19 24 02/25/2023 CBC, PLATE LET, NO DIFFE RENTI AL hemoglobin 12.4 g/dL 11.1-1 5.9 Not Available [facility] Department [address] [place] [address], [address], 02/25/2023 20:09:18 02/25/19 24 02/25/2023 CBC, PLATE LET, NO DIFFE RENTI AL hematocrit 40.0 % 34.0-4 6.6 Not Available [facility] Department [address] [place], [address], 02/25/2023 20:09:18 02/25/1902/25/2023 CBC, PLATE LET, NO DIFFE RENTI AL MCV 85 fL 79-97 Not Available [facility] Department [address] [place], [address], 02/25/2023 20:09:18 02/25/1902/25/2023 CBC, PLATE LET, NO DIFFE RENTI AL MCH 26.3 pg 26.6-3 3.0 below low normal Not Available [facility] Department [address] [place] [address], [address], 02/25/2023 20:09:18 02/25/1902/25/2023 CBC, PLATE LET, NO DIFFE RENTI AL MCHC 31.0 g/dL 31.5-3 5.7 below low normal Not Available [facility] Department [address] [place] [address], [address], 02/25/2023 20:09:18 02/25/1902/25/2023 CBC, PLATE LET, NO DIFFE RENTI AL RDW 14.7 % 11.5-1 4.5 above high normal Not Available [facility] Department [address] [place] [address], [address], 02/25/2023 20:09:18 02/25/1902/25/2023 CBC, PLATE LET, NO DIFFE RENTI AL platelets 380 x10e3 /uL 150-45 0 Mean Plate let Volum e 10.5 fL 8.9-1 2.7 N Not Available [facility] Department [address] [place] [address], [address], 02/25/2023 20:09:18 02/25/1902/25/2023 CBC, PLATE LET, NO DIFFE RENTI AL NRBC 0 % 0-0 Not Available [facility] Department [address] [facility] [place], [address], 02/25/2023 20:09:18 02/25/19 24 02/26/2023 VITAM IN D, 25-HY DROXY vitamin D, 25-hydroxy 21.1 NG/mL 30.0-1 00.0 below low normal Vitam in D defic iency has been defin ed by the Insti tute of Medic ine and an Endoc rine Socie ty pract ice guide line as a level of serum 25-OH vitam in D less than 20 ng/mL (1,2) . The Endoc rine Socie ty [facility] defin e vitam in D insuf ficie ncy as a level betwe en 21 and 29 ng/mL (2). 1. IOM (Inst itute of Medic ine). 2010. Dieta ry refer ence intak es for calci um and D. Erendira jarvis [place]: [facility] . 2. Hernesto gary [place], Hallie lima [place], Kelsey off-F renee i BERGER, et al. Evalu ation , treat ment, and preve ntion of vitam in D defic iency : an Endoc rine Socie ty clini yuriy pract ice guide line. JCEM. 2010; 96(7) :1911 -30. Not Available [facility] ([facility]) [address] [facility], [place], [address], 02/26/2023 08:38:35 05/01/19 24 05/02/2023 VITAM IN B12 AND FOLAT E vitamin B12 616 pg/mL 232-12 45 Not Available [facility] ([facility]) [address] [facility], [place], [address], 05/02/2023 10:16:29 05/01/19 24 05/02/2023 VITAM IN B12 AND FOLAT E folate (folic acid), serum 3.1 NG/mL >3.0 A serum folat e alyson ntrat ion of less than 3.1 ng/mL is consi dered to repre sent clini yuriy defic iency . Not Available [facility] ([facility]) [address] [place], [address], 05/02/2023 10:16:29 05/01/19 24 05/02/2023 IRON AND TIBC iron bind.cap.(TI BC) 363 ug/dL 250-45 0 Not Available [facility] ([facility]) [address] [place], [address], 05/02/2023 10:16:30 05/01/19 24 05/02/2023 IRON AND TIBC UIBC 335 ug/dL 131-42 5 Not Available [facility] ([facility]) [address] [place], [address], 05/02/2023 10:16:30 05/01/19 24 05/02/2023 IRON AND TIBC iron 28 ug/dL 27-159 Not Available [facility] ([facility]) [address] [place], [address], 05/02/2023 10:16:30 05/01/19 24 05/02/2023 IRON AND TIBC iron saturation 8 % 15-55 alert low Not Available [facility] ([facility]) [address] [place], [address], 05/02/2023 10:16:30 05/01/19 24 05/02/2023 CAROLINA TIN ferritin 14 NG/mL 15-150 below low normal Not Available [facility] ([facility]) [address] [place], [address], 05/02/2023 10:16:31 Result Notes None recorded. Problems Name Problem SNOMED Code Status Onset Date Resolution Date Notes Provider Name and Address Organization Details Recorded Time Essential hypertensio n 22647372 Active 2023 Saul Arambula MD Attn: Kaci g,[address] [facility], [place], [address], [facility] - [facility] 4 11:39:33 Morbid obesity 319208226 Active 2023 Saul Arambula MD Attn: Accountshea g,[address] [facility], [place], [address], [place] - [facility] 4 11:39:48 Chronic back pain 143496823 Active 2023 Saul Arambula MD Attn: Kaci vera,[address] [facility], [place], [address], [place] [facility] 4 11:40:08 Chronic sciatica 747380438 Active 2023 Saul Arambula MD Attn: Accountshea g,[address] [facility], [place], [address], [place] [facility] 4 11:40:31 Feeling stressed 490104197 Active 2023 Saul Arambula MD Attn: Ramanshea vera,[address] [facility], [place], [address], [place] [facility] 4 11:40:46 Blurring of visual image 146739237 Active 2023 Fine print Saul Arambula MD Attn: Ramanshea g,[address] [facility], [place], [address], [place] [facility] 4 11:41:09 Pain of left knee region 4974705489958 09 Active 2023 Saul Arambula MD Attn: Ramanshea vera,[address] [facility], [place], [address], [place] [facility] 4 11:43:10 Thickened nails 808512122 Active 2023 Saul Arambula MD Attn: Ramanshea g,[address] [facility], [place], [address], [place] [facility] 4 11:45:46 Allergy to tramadol 776721324 Active 2023 Saul Arambula MD Attn: Kaci g,[address] [facility], [place], [address], [place] [facility] 4 11:46:07 Adult health examination Active 2023 Saul Arambula MD Attn: Kaci vera,[address] [facility], [place], [address], [place] [facility] 4 11:57:08 Family history of cancer of colon 808695136 Active 2023 Saul Arambula MD Attn: Kaci vera,[address] [facility], [place], [address], [place] - [facility] 4 12:00:17 Vitamin D deficiency 00304218 Active 2023 Saul Arambula MD Attn: Kaci vera,[address] [facility], [place], [address], [place] - [facility] 4 07:07:43 Blood substance level below reference range 012030721 Active 2023 Saul Arambula MD Attn: Kaci vera,[address] [facility], [place], [address], [place] - [facility] 4 07:09:08 Iron deficiency anemia 55726676 Active 2023 Saul Arambula MD Attn: Kaci vera,[address] [facility], [place], [address], [place] - [facility] 4 19:20:51 Problem Notes None recorded. Medical Equipment None Reported. Allergies Allergen ID Allergen Name Allergen Category Reaction Reaction Severity Criticality Documentation Date Start Date Code Code System Note Provider Name and Address Organization Details Recorded Time 163415 amoxicill in medicatio n Not available Not available Not available 02/25/2023 723 RxNorm Deya Arreola MA null, [place] - [facility] 4 11:11:31 122445 tramadol medicatio n hallucina tions moderate low 02/25/2023 43223 RxNorm Saul Arambula MD Attn: Kaci vera,[address] [facility], [place], [address], [place] - [facility] 4 11:48:27 Medications Name Sig Start Date Stop Date Status Note LastModified by Organization Details LastModified Time cyclobenzap rine 10 mg tablet TAKE 1 TABLET BY MOUTH EVERY 8 HOURS NEEDED. CUT IN HALF IF TOO SEDATING active Not Available Not Available No t Available doxycycline hyclate 100 mg capsule TAKE 1 CAPSULE BY MOUTH TWICE A DAY FOR 7 DAYS 02/25 completed Not Available Not Available Not Available azithromyci n 250 mg tablet TAKE 2 TABLETS BY MOUTH TODAY, THEN TAKE 1 TABLET DAILY FOR 4 DAYS 02/25 completed Not Available Not Available Not Available valacyclovi r 1 gram tablet TAKE 2 TABLETS BY MOUTH EVERY 12 HOURS FOR 1 DAY 02/25 completed Not Available Not Available Not Available prednisone 20 mg tablet TAKE 2 TABLETS BY MOUTH ONCE DAILY FOR 5 DAYS. TAKE WITH FOOD active Not Available Not Available No t Available metronidazo le 500 mg tablet TAKE 1 TABLET BY MOUTH TWICE A DAY FOR 7 DAYS 02/25 completed Not Available Not Available Not Available amlodipine 5 mg tablet TAKE 1 TABLET BY MOUTH EVERY DAY FOR 30 DAYS 02/25 completed Not Available Not Available Not Available peg-electro lyte solution 420 gram oral solution MIX AND TAKE DIRECTED active Not Available Not Available No t Available ondansetron 8 mg disintegrat ing tablet DISSOLVE 1 TABLET ON TONGUE TWICE A DAY FOR 2 DAYS 02/25 completed Not Available Not Available Not Available ferrous sulfate 325 mg (65 mg iron) tablet TAKE 1 TABLET BY MOUTH TWICE A DAY active Not Available Not Available No t Available diclofenac potassium 50 mg tablet TAKE 1 TABLET BY MOUTH THREE TIMES A DAY NEEDED FOR PAIN 02/25 completed Not Available Not Available Not Available lisinopril 20 mg-hydrochl orothiazide 25 mg tablet TAKE 1 TABLET BY MOUTH EVERY DAY active Not Available Not Available No t Available ergocalcife rol (vitamin D2) 1,250 mcg (50,000 unit) capsule TAKE 1 CAPSULE BY MOUTH ONE TIME PER WEEK active Not Available Not Available No t Available ibuprofen 600 mg tablet TAKE 1 TABLET BY MOUTH THREE TIMES A DAY WITH MEALS active Not Available Not Available No t Available methylpredn isolone 4 mg tablets in a dose pack TAKE 6 TABLETS ON DAY 1 DIRECTED ON PACKAGE AND DECREASE BY 1 TAB EACH DAY FOR A TOTAL OF 6 DAYS 02/25 completed Not Available Not Available Not Available fluticasone propionate 50 mcg/actuati on nasal spray,suspe nsion ADMINISTE R 2 SPRAYS INTO EACH NOSTRIL EVERY DAY 02/25 completed Not Available Not Available Not Available Vitals Date Recorded Body weight Body mass index (BMI) Body height Body temperature Oxygen saturation Oxygen saturation in Arterial blood by Pulse oximetry Heart rate Systolic blood pressure Diastolic blood pressure Provider Name and Address Organization Details Last Updated DateTime 4 317309. 61 g 40.2 kg/m2 162.56 cm 98 [degF] 98 % 98 % 78 /min 136 mm[Hg] 82 mm[Hg] Deya Arreola MA [facility] 11:12:40 Social History Question Answer Notes LastModified by Korrio Details LastModified Time Tobacco Smoking Status Former Smoker Saul Arambula MD Attn: Accounting,[address] [place], [address], [facility] 02/25/2023 11:27:08 What Was The Date Of Your Most Recent Tobacco Screening? 02/25/2023 Information not available 02/25/2023 At What Age Did You Start Smoking Tobacco? 17 Information not available 02/25/2023 Has Tobacco Cessation Counseling Been Provided? No Information not available 02/25/2023 How Many Years Have You Smoked Tobacco? 7 [email or web address] Information not available 02/25/2023 Sex: Unknown Functional Status Question Answer Note LastModified by Korrio Details LastModified Time Do you or have you ever used any other forms of tobacco or nicotine? No Information not available 02/25/2023 What is your level of alcohol consumption? Occasional [email or web address] Information not available 02/25/2023 Mental Status None recorded. Family History Nothing Reported. Medical History Condition Response High Blood Pressure Y Gynecological HistoryNo gynecological history recorded. Obstetrics History GPAL:G 0 P 0 0 0 0 Past Encounters Encounter ID Performer Location Encounter Start Date Encounter Closed Date Diagnosis/Indication Diagnosis SNOMED-CT Code Diagnosis ICD10 Code Diagnosis Note [id number] Saul Arambula MD [facility] (Adult Med) [address] [place] [address] 02/25/2023 10:50:39 03/04/2023 15:54:07 Pain of left knee region 6283682778 81565 M25.562 Essential hypertension 66568143 I10 Feeling stressed 9116523 06 Z73.3 Morbid obesity 339322438 E66.01 Chronic sciatica 7316358 01 M54.31 Get recent films Chronic back pain 360179 002 G89.29 Get recent films Blurring o f visual image 113535567 H53.8 Will see her ophthalmol ogist Thickened nails 05961991 5 Q84.5 Adult heal th examination 226715198 Z00.00 Family his tory of cancer of colon 301329837 Z80.0 Health Concerns Section Related Observation LastModified by Organization Detai ls LastModified Time None Recorded Concern Status LastModified by Organization Details LastModified Time None Recorded Advance Directives Directive None Recorded Payers Insurance Date Sequence Insurance Name Policy Number Policy Martin Covered Member ID Martin Member ID Guarantor Name 07/18/2023 1 [facility] ON OR AFTER 08/16/20 (MEDICAID REPLACEMENT - HMO) Tess Nicolas [id number] Tess Nicolas 02/26/2023 1 *SELF PAY* cheryle Nicolas Notes Date Note Type Note Provider Name and Address Organization Details Recorded Time 02/25/2023 text/html Pt switching PCP. Saul Arambula MD Attn: Accounting,[address] [place], [address], [facility] 02/25/2023 12:03:58 OBGyn Episode No OBEpisode recorded.
--- OUTSIDE RECORDS SUMMARY | 2024-08-03 14:39 | XMS_ITS | Data Portability ---
Author Organization [facility] [employer], Main Office Address [address] [place] [address] Care Team Providers Care Hair And Makeup Designer Name Role Phone CECILIA CEJA Primary Care Provider CECILIA CEJA Referring Provider Assessment No assessment recorded. Plan of Treatment Reminders Order Date Submit Date Provider Last Modified By Organization Details Last Modified Time Details Appointments None recorded. Lab None recorded. Referral physical therapist referral [address] [facility], [address] [place], [address], 3 08:36:40 Procedures None recorded. Surgeries None recorded. Imaging XR, lumbar spine 2022 023 [facility] ([facility]), [address] [place], [address], 3 21:14:10 XR, sacroiliac joint(s) 2022 023 [facility] ([facility]), [address] [place], [address], 3 21:15:17 Medication Orders tramadol 50 mg tablet [facility] Not available 3 15:00:45 diclofenac sodium 75 mg tablet,mary yed release 2022 023 [facility] [address] In [facility], [address] [place], [address], 3 16:32:40 cyclobenzap rine 5 mg tablet 2022 023 [facility] [address] In [facility], [address] [place] [address], [address], 3 16:32:40 Medrol (Tony) 4 mg tablets in a dose pack 2022 023 [place] [address] In [facility], [address] [place] [address], [address], 3 16:42:22 Zithromax Z-Tony 250 mg tablet 2022 023 [place] [id number] In [facility], [address] [place] [address], [address], 3 16:42:22 fluticasone propionate 50 mcg/actuati on nasal spray,suspe nsion 2022 023 [place] [address] In [facility], [address] [place] [address], [address], 3 16:42:22 Patient TargetsNo targets recorded. Patient InstructionsNo instructions recorded. Reason for Referral Physical Therapist Referral for Low back pain Referring Physician: Cecilia Ceja, Internal Medicine, Encounter Date: 12/09/2022 Results Created Date Observation Date Name Description Value Unit Range Abnormal Flag Note LastModifiedBy Organization Detail LastModifiedTime 10/30/19 22 10/29/2021 URINA LYSIS COMPL ETE/I RIS W/RFX pH 6.0 pH_un its 5.0-9. 0 Not Available [facility] (Lab) [address] [place], [address], 10/29/2021 13:30:29 10/30/19 22 10/29/2021 URINA LYSIS COMPL ETE/I RIS W/RFX color yellow Not Available [facility] (Lab) [address] [place], [address], 10/29/2021 13:30:29 10/30/19 22 10/29/2021 URINA LYSIS COMPL ETE/I RIS W/RFX appear turbid abnormal Not Available [facility] (Lab) [address] [place], [address], 10/29/2021 13:30:29 10/30/19 22 10/29/2021 URINA LYSIS COMPL ETE/I RIS W/RFX specific gravity 1.021 1.001- 1.030 Not Available [facility] (Lab) [address] [facility] [place], [address], 10/29/2021 13:30:29 10/30/19 22 10/29/2021 URINA LYSIS COMPL ETE/I RIS W/RFX leukocytes 250 funmilayo/u L negati ve- abnormal Not Available [facility] (Lab) [address] [place], [address], 10/29/2021 13:30:29 10/30/19 22 10/29/2021 URINA LYSIS COMPL ETE/I RIS W/RFX nitrite negati ve negati ve- Not Available [facility] (Lab) [address] [place], [address], 10/29/2021 13:30:29 10/30/19 22 10/29/2021 URINA LYSIS COMPL ETE/I RIS W/RFX protein 20 mg/dL negati ve- abnormal Not Available [facility] (Lab) [address] [facility] [place], [address], 10/29/2021 13:30:29 10/30/19 22 10/29/2021 URINA LYSIS COMPL ETE/I RIS W/RFX glucose normal mg/dL normal - Not Available [facility] (Lab) [address] [place], [address], 10/29/2021 13:30:29 10/30/19 22 10/29/2021 URINA LYSIS COMPL ETE/I RIS W/RFX ketones negati ve mg/dL negati ve- Not Available [facility] (Lab) [address] [place], [address], 10/29/2021 13:30:29 10/30/19 22 10/29/2021 URINA LYSIS COMPL ETE/I RIS W/RFX urobilinogen normal mg/dL normal - Not Available [facility] (Lab) [address] [place], [address], 10/29/2021 13:30:29 10/30/19 22 10/29/2021 URINA LYSIS COMPL ETE/I RIS W/RFX bilirubin negati ve mg/dL negati ve- Not Available [facility] (Lab) [address] [place], [address], 10/29/2021 13:30:29 10/30/19 22 10/29/2021 URINA LYSIS COMPL ETE/I RIS W/RFX blood negati ve mg/dL negati ve- Not Available [facility] (Lab) [address] [place], [address], 10/29/2021 13:30:29 10/30/19 22 10/29/2021 URINA LYSIS COMPL ETE/I RIS W/RFX white blood cells 0-8 /i??h pfi?? 0-8 Not Available [facility] (Lab) [address] [place], [address], 10/29/2021 13:30:29 10/30/19 22 10/29/2021 URINA LYSIS COMPL ETE/I RIS W/RFX red blood cells 5-10 /i??h pfi?? 0-4 abnormal Not Available [facility] (Lab) [address] [place], [address], 10/29/2021 13:30:29 10/30/19 22 10/29/2021 URINA LYSIS COMPL ETE/I RIS W/RFX bacteria occasi onal abnormal Not Available [facility] (Lab) [address] [place], [address], 10/29/2021 13:30:29 10/30/19 22 10/29/2021 URINA LYSIS COMPL ETE/I RIS W/RFX mucous many /i??l pfi?? abnormal Not Available [facility] (Lab) [address] [place], [address], 10/29/2021 13:30:29 10/30/19 22 10/29/2021 URINA LYSIS COMPL ETE/I RIS W/RFX squamous epithelial packed field /i??l pfi?? abnormal Not Available [facility] (Lab) [address] [place], [address], 10/29/2021 13:30:29 10/30/19 22 10/29/2021 TSH thyroid-stim ulating hormone 1.500 uIU/m L 0.465- 4.680 Not Available [facility] (Lab) [address] [place], [address], 10/29/2021 14:16:33 10/30/19 22 10/29/2021 LIPID PANEL LDL cholesterol, calculated 102 mg/dL 0-130 NIH MARY NSUS REPOR T RECOM MENDA TIONS FOR LDL: ADULT CHILD LOW RISK <130 <110 (OPTI MAL LDL) <100 ----- BORDE RLINE : 130-1 59 ----- HIGH RISK: >160 >130 A TRIGL YCERI DE RESUL T >400 INVAL IDATE S THE CALCU LATIO N FOR LDL FRACT IONAT ION - THE LDL RESUL T WILL NOT BE REPOR MERVIN. Not Available [facility] (Lab) [address] [place], [address], 10/29/2021 13:43:13 10/30/19 22 10/29/2021 LIPID PANEL cholesterol 178 mg/dL 140-19 9 NIH MARY NSUS RECOM MENDA TION FOR TRINA STERO L: ADULT CHILD LOW RISK: <200 <170 BORDE RLINE : <200- 239 ----- HIGH RISK: >240 >200 Not Available [facility] (Lab) [address] [place], [address], 10/29/2021 13:43:13 10/30/1910/29/2021 LIPID PANEL triglyceride s 108 mg/dL 0-150 NIH MARY NSUS REPOR T RECOM MENDA TION FOR TRIGL YCERI KRISTINA: ADULT CHILD LOW RISK: <150 ----- BODER LINE: 150-1 99 ----- HIGH RISK: >200 ----- Not Available [facility] (Lab) [address] [place], [address], 10/29/2021 13:43:13 10/30/1910/29/2021 LIPID PANEL HDL cholesterol 54 mg/dL 40- Not Available [facility] (Lab) [address] [place], [address], 10/29/2021 13:43:13 10/30/19 22 10/29/2021 COMPR EHENS GUNNAR METAB OLIC PANEL sodium 138 mmol/ L 137-14 5 Not Available [facility] (Lab) [address] [place], [address], 10/29/2021 13:43:03 10/30/19 22 10/29/2021 COMPR EHENS GUNNAR METAB OLIC PANEL potassium 4.2 mmol/ L 3.5-5. 1 Not Available [facility] (Lab) [address] [place], [address], 10/29/2021 13:43:03 10/30/19 22 10/29/2021 COMPR EHENS GUNNAR METAB OLIC PANEL chloride 105 mmol/ L 98-107 Not Available [facility] (Lab) [address] [place], [address], 10/29/2021 13:43:03 10/30/19 22 10/29/2021 COMPR EHENS GUNNAR METAB OLIC PANEL carbon dioxide 24 mmol/ L 22-30 Not Available [facility] (Lab) [address] [place], [address], 10/29/2021 13:43:03 10/30/19 22 10/29/2021 COMPR EHENS GUNNAR METAB OLIC PANEL anion gap 13.2 mmol/ L 14-22 low Not Available [facility] (Lab) [address] [place], [address], 10/29/2021 13:43:03 10/30/19 22 10/29/2021 COMPR EHENS GUNNAR METAB OLIC PANEL glucose 117 mg/dL 70-99 high Not Available [facility] (Lab) [address] [place], [address], 10/29/2021 13:43:03 10/30/19 22 10/29/2021 COMPR EHENS GUNNAR METAB OLIC PANEL BUN 8 mg/dL 8-19 Not Available [facility] (Lab) [address] [place], [address], 10/29/2021 13:43:03 10/30/19 22 10/29/2021 COMPR EHENS GUNNAR METAB OLIC PANEL creatinine 0.82 mg/dL 0.66-1 .25 Not Available [facility] (Lab) [address] [place], [address], 10/29/2021 13:43:03 10/30/19 22 10/29/2021 COMPR EHENS GUNNAR METAB OLIC PANEL GFR >60 Refer ence Range : [place] ge GFR Healt hy Adult : >60 mL/mi n/1.7 3 m2 Chron ic Kidne y Disea se: 15-60 mL/mi n/1.7 3 m2 Kidne y Failu re: <15/m L/min /1.73 m2 www.n iddk. nih.g ov The MDRD study equat ion has not been valid ated in child rafy <18 years of age; pregn ant women ; the elder ly >85 years of age; or in some racia l or ethni c subgr oups, such as Hisjose guadalupe nics. Outsi de the valid ated brent eters , estim ated GFR is less accur ate, requi ring clini yuriy judgm ent on a case- by-ca se basis . Clini yuriy inter preta tion for other races and ages must be made by the clini hortencia. The MDRD study equat ion has not been valid ated for the evalu ation of serum creat inine relat ed to nutri tami l statu s or medic ation usage . For perso ns <18 years of age, a pedia tric GFR calcu lator is avail able on the [facility] websi te: https ://henny w.gita pisano.o rg/pr ofess ional s/kdo qi/gf r_cal culat or Not Available [facility] (Lab) [address] [place], [address], 10/29/2021 13:43:03 10/30/19 22 10/29/2021 COMPR EHENS GUNNAR METAB OLIC PANEL alkaline phosphatase 112 U/L 38-126 Not Available [facility] (Lab) [address] [place], [address], 10/29/2021 13:43:03 10/30/19 22 10/29/2021 COMPR EHENS GUNNAR METAB OLIC PANEL alanine aminotransfe rase 21 U/L 0-35 Not Available [facility] (Lab) [address] [place], [address], 10/29/2021 13:43:03 10/30/19 22 10/29/2021 COMPR EHENS GUNNAR METAB OLIC PANEL aspartate aminotransfe rase 20 U/L 15-37 Not Available [facility] (Lab) [address] [place], [address], 10/29/2021 13:43:03 10/30/19 22 10/29/2021 COMPR EHENS GUNNAR METAB OLIC PANEL bilirubin, total 0.50 mg/dL 0.20-1 .30 Not Available [facility] (Lab) [address] [place], [address], 10/29/2021 13:43:03 10/30/19 22 10/29/2021 COMPR EHENS GUNNAR METAB OLIC PANEL calcium 9.6 mg/dL 8.4-10 .2 Not Available [facility] (Lab) [address] [place], [address], 10/29/2021 13:43:03 10/30/19 22 10/29/2021 COMPR EHENS GUNNAR METAB OLIC PANEL total protein 6.6 g/dL 6.3-8. 2 Not Available [facility] (Lab) [address] [place], [address], 10/29/2021 13:43:03 10/30/19 22 10/29/2021 COMPR EHENS GUNNAR METAB OLIC PANEL albumin 3.9 g/dL 3.4-5. 0 Not Available [facility] (Lab) [address] [place], [address], 10/29/2021 13:43:03 10/30/19 22 10/29/2021 COMPR EHENS GUNNAR METAB OLIC PANEL globulin 2.7 g/dL 2.6-4. 2 Not Available [facility] (Lab) [address] [place], [address], 10/29/2021 13:43:03 10/30/19 22 10/29/2021 COMPR EHENS GUNNAR METAB OLIC PANEL A/G ratio 1.4 ratio 1.0-2. 0 Not Available [facility] (Lab) [address] [place], [address], 10/29/2021 13:43:03 10/30/19 22 10/29/2021 URINA LYSIS COMPL ETE/I RIS W/RFX pH 6.0 pH_un its 5.0-9. 0 Not Available [facility] (Lab) [address] [place], [address], 10/29/2021 13:26:00 10/30/19 22 10/29/2021 URINA LYSIS COMPL ETE/I RIS W/RFX color yellow Not Available [facility] (Lab) [address] [place], [address], 10/29/2021 13:26:00 10/30/19 22 10/29/2021 URINA LYSIS COMPL ETE/I RIS W/RFX appear turbid abnormal Not Available [facility] (Lab) [address] [place], [address], 10/29/2021 13:26:00 10/30/19 22 10/29/2021 URINA LYSIS COMPL ETE/I RIS W/RFX specific gravity 1.021 1.001- 1.030 Not Available [facility] (Lab) [address] [place], [address], 10/29/2021 13:26:00 10/30/19 22 10/29/2021 URINA LYSIS COMPL ETE/I RIS W/RFX leukocytes 250 funmilayo/u L negati ve- abnormal Not Available [facility] (Lab) [address] [place], [address], 10/29/2021 13:26:00 10/30/19 22 10/29/2021 URINA LYSIS COMPL ETE/I RIS W/RFX nitrite negati ve negati ve- Not Available [facility] (Lab) [address] [place], [address], 10/29/2021 13:26:00 10/30/19 22 10/29/2021 URINA LYSIS COMPL ETE/I RIS W/RFX protein 20 mg/dL negati ve- abnormal Not Available [facility] (Lab) [address] [place], [address], 10/29/2021 13:26:00 10/30/19 22 10/29/2021 URINA LYSIS COMPL ETE/I RIS W/RFX glucose normal mg/dL normal - Not Available [facility] (Lab) [address] [place], [address], 10/29/2021 13:26:00 10/30/19 22 10/29/2021 URINA LYSIS COMPL ETE/I RIS W/RFX blood negati ve mg/dL negati ve- Not Available [facility] (Lab) [address] [place], [address], 10/29/2021 13:26:00 10/30/19 22 10/29/2021 URINA LYSIS COMPL ETE/I RIS W/RFX ketones negati ve mg/dL negati ve- Not Available [facility] (Lab) [address] [place], [address], 10/29/2021 13:26:00 10/30/19 22 10/29/2021 URINA LYSIS COMPL ETE/I RIS W/RFX urobilinogen normal mg/dL normal - Not Available [facility] (Lab) [address] [place], [address], 10/29/2021 13:26:00 10/30/19 22 10/29/2021 URINA LYSIS COMPL ETE/I RIS W/RFX bilirubin negati ve mg/dL negati ve- Not Available [facility] (Lab) [address] [place], [address], 10/29/2021 13:26:00 10/30/19 22 10/29/2021 URINA LYSIS COMPL ETE/I RIS W/RFX white blood cells 0-8 /i??h pfi?? 0-8 Not Available [facility] (Lab) [address] [place], [address], 10/29/2021 13:26:00 10/30/19 22 10/29/2021 URINA LYSIS COMPL ETE/I RIS W/RFX red blood cells 5-10 /i??h pfi?? 0-4 abnormal Not Available [facility] (Lab) [address] [place], [address], 10/29/2021 13:26:00 10/30/19 22 10/29/2021 URINA LYSIS COMPL ETE/I RIS W/RFX bacteria occasi onal abnormal Not Available [facility] (Lab) [address] [place], [address], 10/29/2021 13:26:00 10/30/19 22 10/29/2021 URINA LYSIS COMPL ETE/I RIS W/RFX mucous many /i??l pfi?? abnormal Not Available [facility] (Lab) [address] [place], [address], 10/29/2021 13:26:00 10/30/19 22 10/29/2021 URINA LYSIS COMPL ETE/I RIS W/RFX squamous epithelial packed field /i??l pfi?? abnormal Not Available [facility] (Lab) [address] [place], [address], 10/29/2021 13:26:00 10/30/19 22 10/29/2021 URINA LYSIS COMPL ETE/I RIS W/RFX unclassified cast 3 abnormal Not Available [facility] (Lab) [address] [place], [address], 10/29/2021 13:26:00 11/08/19 22 11/07/2021 HEMOG LOBIN A1C HA1C 5.4 % 4.0-6. 0 Diabe feroz Scree haris Crite ani: <5.7% Consi stent with absen ce of diabe feroz 5.7-6 .4% Consi stent with incre ased risk for diabe feroz (pred iabet es) >OR=6 .5% Consi stent with diabe feroz REFER ENCE: Diabe feroz Care 2016, 39(Patel ppl.1 ):s13 -s22 Not Available [facility] ([facility]) [address], [place], [address], 11/07/2021 22:16:17 11/26/19 22 07/30/2018 MAMMO , scree haris, digit al, bilat eral No observ ation record ed. [id number] Not Available 04/16/2022 03:35:59 11/29/19 22 11/26/2021 upper endos copy proce dure (EGD) (PROC ) No observ ation record ed. [id number] Not Available 04/16/2022 03:35:59 12/11/19 23 12/10/2022 XR, lumba r spine [facility] [address] [facility] [place] [address] Patien t Name: TESS NICOLAS ion #: [id number] Sex: F : 1975 0 Dictat ed By: Ray Burch Attend ing Physic monster: JULIAN CEJA ER Orderi Physic monster: JULIAN CEJA ER Exam Date: 2022 18:14 PM Exam Name: XR L SPINE 4V+ Admitt ing Diagno sis(es ): INDICA TION: Trauma . TECHNI QUE: Fronta l and latera l views of the lumbar spine were obtain ed. COMPAR JOHANN: None. FINDIN GS: . There are no fractu res or sublux ations . Verteb ral body height s and disc spaces are well mainta ined. Parave rtebra l soft tissue s are unrema rkable . IMPRES CAROLINE: 1. Of the visual ized spine, there is no eviden ce for fractu re or sublux ation. Electr onical ly Signed by: Ray uBrch at 2022 20:12: 53 PM Page 1 [email or web address] [facility] (Imaging) [address] [place], [address], 12/12/2022 16:34:03 12/11/19 23 12/10/2022 XR, sacro iliac joint (s) [facility] [address] [place] [address] Patien t Name: TESS NICOLAS Access ion #: [id number] Sex: F : 1975 0 Dictat ed By: Ray Burch Attend ing Physic monster: JULIAN CEJA Orderi ng Physic monster: JULIAN CEJA ER Exam Date: 2022 18:14 PM Exam Name: XR SACROI LIAC JOINTS Admitt ing Diagno sis(es ): Bilate ral SI joint radiog raph [facility]INIC [facility] INDICA TION: low back pain TECHNI QUE: 2 radiog raphic views of the bilate ral SI joint were obtain ed. Compar johann: none FINDIN GS: There is no eviden ce of acute fractu re or disloc ation. The visual ized joint space is well mainta ined. The alignm ent is anatom ical. Soft tissue s are unrema rkable . IMPRES CAROLINE: No acute fractu re or disloc ation. Electr onical ly Signed by: Ray Burch at 2022 20:14: 05 PM Page 1 [email or web address] [facility] (Imaging) [address] [place], [address], 12/12/2022 16:33:07 03/25/19 24 03/25/2023 colon oscop y scree haris (PROC ) No observ ation record ed. [email or web address] [facility] (Pre-Screen) [address] [place], [address], 03/25/2023 11:07:43 Result Notes Documentation Provider Name and Address Organization Details Recorded Time Xr, Lumbar Spine : [facility] [address] [place] [address] Patient Name: TESS NICOLAS Sex: F : 1975 Dictated By: Ray Burch Attending Physician: CECILIA CEJA Ordering Physician: CECILIA CEJA Exam Date: 12/10/2022 18:14 PM Exam Name: XR L SPINE 4V+ Admitting Diagnosis(es): INDICATION: Trauma. TECHNIQUE: Frontal and lateral views of the lumbar spine were obtained. COMPARISON: None. FINDINGS: . There are no fractures or subluxations. Vertebral body heights and disc spaces are well maintained. Paravertebral soft tissues are unremarkable. IMPRESSION: 1. Of the visualized spine, there is no evidence for fracture or subluxation. Page 1 EBENEZER [facility] [employer] 12/12/2022 16:34:03 Xr, Sacroiliac Joint(s) : [facility] [address] [place] [address] Patient Name: TESS NICOLAS Sex: F : 1975 Dictated By: Ray Burch Attending Physician: CECILIA CEJA Ordering Physician: CECILIA CEJA Exam Date: 12/10/2022 18:14 PM Exam Name: XR SACROILIAC JOINTS Admitting Diagnosis(es): Bilateral SI joint radiograph CLINICAL INDICATION: low back pain TECHNIQUE: 2 radiographic views of the bilateral SI joint were obtained. Comparison: none FINDINGS: There is no evidence of acute fracture or dislocation. The visualized joint space is well maintained. The alignment is anatomical. Soft tissues are unremarkable. IMPRESSION: No acute fracture or dislocation. Page 1 EBENEZER [facility] [employer] 12/12/2022 16:33:07 Problems Name Problem SNOMED Code Status Onset Date Resolution Date Notes Provider Name and Address Organization Details Recorded Time Anemia 832869012 Active 2022 Cecilia Ceja MD [address] [facility] [address], [place], [address] , [facility] 3 09:15:49 Blister of lip 29785047450 03 Active 2022 Nae waterman, RMA null, [facility] 3 17:03:41 Pain of knee region 0422831275 Completed 202111/25/2021 Not Available [facility] 3 03:26:36 Otalgia of left ear 7133565831 Completed 202111/25/2021 Not Available [facility] 3 03:26:36 Impacted cerumen in right ear 26652477706 34636 Completed 202111/25/2021 Not Available [facility] 3 03:26:36 Viral gastroent eritis 685500379 Completed 202111/25/2021 Not Available [facility] 3 03:26:36 Contusion of left knee 65696239143 613006 Completed 202111/25/2021 Not Available [facility] 3 03:26:37 Tendiniti s of right elbow 34912066419 764892 Completed 202111/25/2021 Not Available [facility] 3 03:26:37 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 2021 Not Available [facility] 3 03:26:37 Constipat ion 30624810 Completed Not Available [facility] 3 03:26:37 Acute sinusitis 58774569 Active 2021 Not Available [facility] 3 03:26:37 Acute sinusitis 24679484 Completed 202111/25/2021 Not Available [facility] 3 03:26:37 Pain of right elbow joint 41849439735 823638 Completed 202111/25/2021 Not Available [facility] 3 03:26:37 Backache 249144503 Active Not Available [facility] 3 03:26:37 On examinati on - BP reading very high Completed Not Available [facility] 3 03:26:37 Blood glucose outside reference range 329543554 Active 2021 Not Available [facility] 3 03:26:37 Transient hypertens ion of - not delivered 119723891 Completed Not Available [facility] 3 03:26:37 Gastroeso phageal reflux disease 193260064 Active 2021 Not Available [facility] 3 03:26:37 Lower esophagea l ring 407804811 Active 2021 Not Available [facility] 3 03:26:37 Headache 32769183 Active 2021 Not Available [facility] 3 03:26:38 Edema 415849508 Active 2021 Not Available [facility] 3 03:26:38 Wax in ear canal 092055852 Completed Not Available [facility] 3 03:26:38 Low back pain 712241362 Active 2021 Not Available [facility] 3 03:26:38 Pain in right arm 171632832 Completed 202111/25/2021 Not Available [facility] 3 03:26:38 Pain in pelvis 83306475 Completed Not Available [facility] 3 03:26:38 On examinati on - lesion Completed Not Available [facility] 3 03:26:38 Lateral epicondyl itis of right humerus 33904735586 9107 Completed 202111/25/2021 Not Available [facility] 3 03:26:38 Vertigo 338297738 Completed Not Available [facility] 3 03:26:38 Dizziness 197930458 Active 2021 Not Available [facility] 3 03:26:39 Dysphagia 28982684 Completed 202111/25/2021 Not Available [facility] 3 03:26:39 Obesity 157362713 Active Not Available [facility] 3 03:26:39 Radial tunnel syndrome 615835378 Completed 202111/25/2021 Not Available [facility] 3 03:26:39 Anxiety 55243302 Active Not Available [facility] 3 03:26:39 Delivery normal 87313779 Completed Not Available [facility] 3 03:26:39 Cough 64350911 Completed 202111/25/2021 Not Available [facility] 3 03:26:39 Upper respirato ry infection 07137686 Completed Not Available [facility] 3 03:26:39 Pain of wrist region 37943902 Completed Not Available [facility] 3 03:26:40 Essential hypertens ion 59694879 Active Not Available [facility] 3 03:26:40 Rhinitis 45571113 Active Not Available [facility] 3 03:26:40 Dyspareun ia 37687753 Active Not Available [facility] 3 03:26:40 Ex-smoker 7176065 Active Not Available [facility] 3 03:26:40 Notes:Some problems listed i n Documents: #[id number], #[id number] could not be added to this patient's chart. Please review these documents and add these problems to the patient's chart manually as needed. Problem Notes None recorded. Procedures Surgical History Date Name Laterality Status Provider Name and Address Organization Details Recorded Time 03/14/19 21 Hernia Repair completed Not Available [facility] 04/16/2022 03:18:52 07/16/19 19 Date of Last Pap Smear completed Not Available [facility] 04/16/2022 03:18:51 CONSULTING ENGINEER Procedure completed Not Available [facility] [facility] 04/16/2022 03:18:52 Appendectomy completed Not Available [facility] 04/16/2022 03:18:52 Colposcopy completed Not Available [facility] 04/16/2022 03:18:52 Removal of ovarian cyst(s) completed Not Available [facility] 04/16/2022 03:18:52 Tubal Ligation completed Not Available [facility] 04/16/2022 03:18:52 Cholecystectomy completed Not Available [facility] 04/16/2022 03:18:52 CONSULTING ENGINEER Procedure completed Not Available [facility] 04/16/2022 03:18:52 Imaging Results None recorded. Procedure Notes None recorded. Medical Equipment None Reported. Allergies No known drug allergies Medications Name Sig Start Date Stop Date Status Note LastModified by Organization Details LastModified Time cyclobenza eleno 10 mg tablet Take 1 tablet twice a day by oral route as needed. 06/11 completed Not Available Not Available Not Available amoxicilli n 500 mg capsule TK 1 C PO TID 05/11 completed Not Available Not Available Not Available medroxypro gesterone 10 mg tablet Take 1 tablet every day by oral route for 30 days. 09/26 completed Not Available Not Available Not Available prednisone 10 mg tablet TAKE 1 TAB BY MOUTH 3 TIMES A DAY X 3 DAYS, 1 TAB 2 TIMES A DAY X 2 DAYS,1 TAB ONCE X1 DAY 10/31 completed Not Available Not Available Not Available lisinopril 20 mg-hydroch lorothiazi de 12.5 mg tablet Take 1 tablet every day by oral route for 30 days. active Not Available Not Available No t Available ibuprofen 800 mg tablet TAKE 1 TABLET BY MOUTH EVERY 8 HOURS 09/26 completed Not Available Not Available Not Available fluconazol e 150 mg tablet active Not Available Not Available Not Available benzonatat e 200 mg capsule Take 1 capsule 3 times a day by oral route. PRN active Not Available Not Available No t Available valacyclov ir 1 gram tablet Take 2 tablets every 12 hours by oral route for 1 day. 2022 active Not Available Not Available Not Avai lable hydrocodon e 5 mg-acetami nophen 325 mg tablet TK 1 T PO Q 4-6 H PRN P 05/11 completed Not Available Not Available Not Available ondansetro n HCl 4 mg tablet Take 1 tablet 4 times a day by oral route. 05/11 completed Not Available Not Available Not Available Medrol (Tony) 4 mg tablets in a dose pack Take 1 dose pk by oral route. 2022 active Not Available Not Available Not Avai lable bupivacain e HCl 0.5 % (5 mg/mL) injection solution Take 20 mg by injectio n route. 11/25 completed Not Available Not Available Not Available sertraline 100 mg tablet Take 1 tablet every day by oral route at bedtime. active Not Available Not Available No t Available Zithromax Z-Tony 250 mg tablet TAKE 2 TABLETS (500 MG) BY ORAL ROUTE ONCE DAILY FOR 1 DAY THEN 1 TABLET (250 MG) BY ORAL ROUTE ONCE DAILY FOR 4 DAYS 2022 active Not Available Not Available Not Avai lable meclizine 12.5 mg tablet Take 1 tablet 3 times a day by oral route. active Not Available Not Available No t Available amlodipine 5 mg tablet Take 1 tablet every day by oral route for 30 days. 09/26 completed Not Available Not Available Not Available acyclovir 400 mg tablet Take 1 tablet every 8 hours by oral route. active Not Available Not Available No t Available hydrocodon e 10 mg-acetami nophen 325 mg tablet active Not Available Not Available No t Available tramadol 50 mg tablet Take 1 tablet 3 times a day by oral route. 2022 active Not Available Not Available Not Avai lable amoxicilli n 500 mg tablet Take 1 tablet 3 times a day by oral route for 7 days. 04/20 completed Not Available Not Available Not Available prednisone 10 mg tablets in a dose pack Take 1 tab by mouth, 3 times a day for 3 daysTake 1 tab by mouth 2 times a day for 2 daysTake 1 tab by mouth once a day for 1 day 10/31 completed Not Available Not Available Not Available Mobic 15 mg tablet Take 1 tablet every day by oral route. 05/23 completed Not Available Not Available Not Available oxycodone- acetaminop hen 5 mg-325 mg tablet TAKE 1 TABLET BY MOUTH EVERY 4 TO 6 HOURS NEEDED active Not Available Not Available No t Available alprazolam 0.25 mg tablet Take 1 tablet(s ) 1 TIME A DAY by oral route prn 06/08 completed Not Available Not Available Not Available amitriptyl ine 25 mg tablet Take 1 tablet every day by oral route at bedtime. 06/08 completed Not Available Not Available Not Available lorazepam 0.5 mg tablet Take 1 tablet twice a day by oral route as needed. active Not Available Not Available No t Available Kenalog 10 mg/mL suspension for injection In office injectio n administ ered by the provider 11/25 completed [facility]: [phone] Not Available Not Available Not Available meclizine 25 mg tablet Take 1 tablet 3 times a day by oral route. 06/08 completed Not Available Not Available Not Available amlodipine 10 mg tablet Take 1 tablet every day by oral route. 06/05 completed Not Available Not Available Not Available hydrocodon e 7.5 mg-acetami nophen 325 mg tablet TK 1 T PO Q 6 H PRN active Not Available Not Available No t Available cephalexin 500 mg capsule TK 1 C PO Q 8 H TAT 06/11 completed Not Available Not Available Not Available pantoprazo le 40 mg tablet,del ayed release TAKE 1 TABLET BY MOUTH EVERY DAY 09/26 completed Not Available Not Available Not Available buspirone 10 mg tablet active Not Available Not Available Not Available lisinopril 10 mg tablet Take 1 tablet every day by oral route. active Not Available Not Available No t Available lidocaine 5 % topical patch Apply 1 patch every day by transder mal route. active Not Available Not Available No t Available lisinopril 20 mg-hydroch lorothiazi de 25 mg tablet Take 1 tablet every day by oral route. active Not Available Not Available No t Available diclofenac sodium 75 mg tablet,del ayed release Take 1 tablet twice a day by oral route. 2022 active Not Available Not Available Not Avai lable montelukas t 10 mg tablet Take 1 tablet every day by oral route. 09/26 completed Not Available Not Available Not Available norethindr one acetate 5 mg tablet Take 1 tablet every day by oral route for 10 days. 06/11 completed Not Available Not Available Not Available gabapentin 100 mg capsule TK 2 CS PO BID active Not Available Not Available No t Available lisinopril 10 mg-hydroch lorothiazi de 12.5 mg tablet Take 1 tablet every day by oral route. active does not take- nausea Not Available Not Available Not Available ibuprofen 600 mg tablet 06/11 completed Not Available Not Available Not Available levofloxac in 500 mg tablet Take 1 tablet every 24 hours by oral route. 09/26 completed Not Available Not Available Not Available ondansetro n 4 mg disintegra ting tablet Place 2 tablets 3 times a day by translin gual route as needed. active Not Available Not Available No t Available fluticason e propionate 50 mcg/actuat ion nasal spray,susp ension [place] 2 sprays every day by intranas al route. 2022 active Not Available Not Available Not Avai lable sertraline 50 mg tablet Take 1 tablet every day by oral route. active Not Available Not Available No t Available naproxen 500 mg tablet TAKE 1 TABLET BY MOUTH TWICE A DAY 09/26 completed Not Available Not Available Not Available metoclopra mide 10 mg tablet active Not Available Not Available Not Available amoxicilli n 875 mg-potassi um clavulanat e 125 mg tablet 11/06 completed Not Available Not Available Not Available hydroxyzin e pamoate 25 mg capsule active Not Available Not Available Not Available cyclobenza eleno 5 mg tablet Take 1 tablet every 12 hours by oral route. 2022 active Not Available Not Available Not Avai lable Ciprodex 0.3 %-0.1 % ear drops,susp ension INSTILL 4 DROPS INTO AFFECTED EAR(S) BY OTIC ROUTE 2 TIMES PER DAY FOR 7 DAYS active Not Available Not Available No t Available bupropion HCl XL 150 mg 24 hr tablet, extended release active Not Available Not Available Not Available nitrofuran toin monohydrat e/macrocry stals 100 mg capsule 05/11 completed Not Available Not Available Not Available Golytely 236 gram-22.74 gram-6.74 gram-5.86 gram oral solution take as directed 2023 active Not Available Not Available Not Avai lable Vitals Date Recorded Body height Body mass index (BMI) Body weight Body temperature Oxygen saturation Oxygen saturation in Arterial blood by Pulse oximetry Heart rate Systolic blood pressure Diastolic blood pressure Provider Name and Address Organization Details Last Updated DateTime 3 162.56 cm 40.7 kg/m2 335934. 39 g 97.6 [degF] 98 % 98 % 82 /min 156 mm[Hg] 94 mm[Hg] [place] [facility] [place] [facility] 3 16:25:00 Date Recorded Body mass index (BMI) Body height Oxygen saturation Oxygen saturation in Arterial blood by Pulse oximetry Heart rate Body weight Systolic blood pressure Diastolic blood pressure Provider Name and Address Organization Details Last Updated DateTime 2 40.3 kg/m2 162.56 cm 99 % 99 % 80 /min 947497. 21 g 152 mm[Hg] 90 mm[Hg] Not Available [facility] 3 03:24:56 Date Recorded Body height Oxygen saturation Oxygen saturation in Arterial blood by Pulse oximetry Heart rate Respiratory rate Body temperature Body weight Systolic blood pressure Diastolic blood pressure Provider Name and Address Organization Details Last Updated DateTime 2 162.56 cm 98 % 98 % 78 /min 16 /min 97.5 [degF] 156548. 8 g 130 mm[Hg] 84 mm[Hg] Not Available [facility] 3 03:24:56 Date Recorded Body height Body mass index (BMI) Body weight Body temperature Heart rate Oxygen saturation Oxygen saturation in Arterial blood by Pulse oximetry Systolic blood pressure Diastolic blood pressure Provider Name and Address Organization Details Last Updated DateTime 3 162.56 cm 39.8 kg/m2 064366. 43 g 97.7 [degF] 92 /min 98 % 98 % 146 mm[Hg] 80 mm[Hg] [place] [facility] 3 16:04:30 Date Recorded Body height Oxygen saturation Oxygen saturation in Arterial blood by Pulse oximetry Heart rate Body temperature Body weight Systolic blood pressure Diastolic blood pressure Provider Name and Address Organization Details Last Updated DateTime 2 162.56 cm 98 % 98 % 102 /min 98.4 [degF] 576373. 58 g 160 mm[Hg] 90 mm[Hg] Not Available [facility] 3 03:24:56 Social History Question Answer Notes LastModified by Organizat ion Details LastModified Time Tobacco Smoking Status Former Smoker 2005 Not Available [facility] 04/16/2022 03:16:29 Do You Have An Advance Directive? No [id number] Information not available 04/16/2022 What Is Your Level Of Caffeine Consumption? Moderate [id number] Information not available 04/16/2022 In The 14 Days Before Symptom Onset, Have You Had Close Contact With A Laboratory-confirm ed COVID-19 While That Case Was Ill? No [id number] Information not available 04/16/2022 In The 14 Days Before Symptom Onset, Have You Had Close Contact With A Person Who Is Under Investigation For COVID-19 While That Person Was Ill? No [id number] Information not available 04/16/2022 What Type Of Diet Are You Following? REGULAR [id number].[id number] Information not available 04/16/2022 Have There Been Any Changes To Your Family Or Social Situation? No [id number].[id number] Information not available 04/16/2022 What Is The Fluoride Status Of Your Home? Unknown [id number].[id number] [id number] Information not available 04/16/2022 Do You Have A Medical Power Of Seed Potato Arranger? No [id number].[id number] 6072 Information not available 04/16/2022 What Was The Date Of Your Most Recent Tobacco Screening? 06/26/2021 [id number] Information not available 04/16/2022 Do You Have Any Pets? Yes MIGRATION.[id number] 3717 Information not available 04/16/2022 What Is Your Relationship Status? MIGRATION.[id number] 1345 Information not available 04/16/2022 Do You Use Your Seat Belt Or Car Seat Routinely? Yes MIGRATION.[id number] 3750 Information not available 04/16/2022 Do You Have Smoke And Carbon Monoxide Detectors In Your Home? Yes [id number].[id number] 3439 Information not available 04/16/2022 At What Age Did You Start Smoking Tobacco? 16 MIGRATION.[id number] 3880 Information not available 04/16/2022 Are You Passively Exposed To Smoke? No MIGRATION.[id number] 2180 Information not available 04/16/2022 Are There Any Smokers In Your House? No MIGRATION.886134 4624 Information not available 04/16/2022 How Much Tobacco Do You Smoke? 1 PPD MIGRATION.062281 1299 Information not available 04/16/2022 Do You Use Sunscreen Routinely? Yes MIGRATION.[id number] 1033 Information not available 04/16/2022 Have You Recently Traveled Abroad? No MIGRATION.712533 9613 Information not available 04/16/2022 Do You Have Any Dietary Restrictions? No MIGRATION.991027 2289 Information not available 04/16/2022 Sex: Unknown Functional Status Question Answer Note LastModified by Organizat ion Details LastModified Time Do you use any illicit or recreational drugs? No [id number] 026 Information not available 04/16/2022 Do you or have you ever used any other forms of tobacco or nicotine? No MIGRATION.2199525 026 Information not available 04/16/2022 What is your level of alcohol consumption? Occasional MIGRATION.[id number] 026 Information not available 04/16/2022 What is your exercise level? Occasional MIGRATION.[id number] 026 Information not available 04/16/2022 Mental Status Question Answer Note LastModified by Organizat ion Details LastModified Time Do you feel stressed (tense, restless, nervous, or anxious, or unable to sleep at night)? [id number] [id number].[id number] 6 Information not available 04/16/2022 Family History Relationship Description Onset Age of this Age Resolved Age Notes LastModified by Organization Details LastModified Time Mother Diabetes mellitus [id number] Not available 04/16/2022 03:18:59 Mother Essential hypertension [id number] Not available 04/16/2022 03:18:59 Mother Depressive disorder [id number] Not available 04/16/2022 03:18:59 Daughter Depressive disorder [id number] Not available 04/16/2022 03:18:59 Father Malignant tumor of colon MIGRATION.[id number] Not available 04/16/2022 03:18:59 Medical History Condition Response HYPERTENSION Gynecological History Statement/Question Response Abnormal Pap Y Date of Last Pap 07/15/2018 Date of Last Pap Smear 07/15/2018 Current Control Method Tubal Ligat ion Date of LMP 10/16/2020 Obstetrics History GPAL:G 0 P 0 0 0 0 Immunizations Vaccine Type Date Status Note Provider Nam e and Address Organization Details Recorded Time Hep B, adult 09/06/2015 completed Not Available [facility] 04/16/2022 03:35:21 Past Encounters Encounter ID Performer Location Encounter Start Date Encounter Closed Date Diagnosis/Indication Diagnosis SNOMED-CT Code Diagnosis ICD10 Code Diagnosis Note [id number] Cecilia Ceja MD [facility] Internal Med [address] [place] [address] 05/23/2020 00:00:00 05/23/2020 14:12:19 [id number] MD KERRI [facility] [address] [address] 06/05/2020 00:00:00 06/05/2020 12:53:19 [id number] MD MARIELENA VarmaS[facility] [address] [facility] [place] [address] 08/29/2020 00:00:00 08/29/2020 09:59:33 [id number] Cecilia Ceja MD [facility] [address] [facility] [place] [address] 09/06/2020 00:00:00 09/06/2020 15:46:58 [id number] MD MARIELENA [facility] [address] [address] 10/08/2020 00:00:00 10/08/2020 14:36:36 [id number] [facility] _[facility]_M IGR[facility]_ DEFAULT_1 _1 , 10/18/2020 00:00:00 10/18/2020 16:01:29 [id number] [facility] _ATHENA_M IGRATION_ DEFAULT_1 _1 , 12/03/2020 00:00:00 12/03/2020 15:12:42 [id number] Cecilia Ceja MD [facility] [address] [address] 06/11/2021 00:00:00 06/11/2021 09:58:44 [id number] MD MARIELENA [facility] [address] [address] 06/26/2021 00:00:00 06/26/2021 12:45:32 [id number] MD MARIELENA [facility] Med [address] [address] 06/27/2021 00:00:00 06/27/2021 16:48:36 [id number] MD MARIELENA HortonS[facility] Ortho [address] [address] 08/13/2021 00:00:00 08/13/2021 10:01:35 [id number] Cecilia Ceja MD [facility] Internal Med [address] [place] [address] 10/24/2021 00:00:00 10/24/2021 13:34:35 [id number] Cecilia Ceja MD [facility] Internal Med [address] [place] [address] 11/25/2021 00:00:00 11/25/2021 12:16:01 [id number] Cecilia Ceja MD [facility] Internal Med [address] [place] [address] 12/03/2021 00:00:00 12/03/2021 12:13:55 [id number] Cecilia Ceja MD [facility] Internal Med [address] [place] [address] 01/30/2022 00:00:00 01/30/2022 16:53:44 [id number] Cecilia Ceja MD [facility] Internal Med [address] [place] [address] 09/26/2022 16:21:03 09/27/2022 14:06:02 Acute sinusitis 85525238 J01.90 disussed diziness can be from lots of causes,inc rease water intake in the summer heat secondary to bp pill has diuretical so discussed allergies and will treat for acute sinus and add nose spray for chronic allergy.f/ u if no better and to urgent care if anything worsens. f/u up with toe nail fungus at a later time.she is also concerned about blood sugar and have discussed that her labs in may were ok but she is due for f/u with dr ceja [id number] Cecilia Ceja MD [facility] Internal Med [address] [place] [address] 12/09/2022 15:41:08 12/09/2022 16:36:55 Low back pain 227542661 M54.50 Health Concerns Section Related Observation LastModified by Organization Detai ls LastModified Time None Recorded Concern Status LastModified by Organization Details LastModified Time None Recorded Advance Directives Directive N: Payers Insurance Date Sequence Insurance Name Policy Number Policy Martin Covered Member ID Martin Member ID Guarantor Name 03/21/2024 1 [facility] - DOS ON OR AFTER 20 (MEDICAID REPLACEMENT - HMO) Tess Nicolas [id number] Tess Nicolas 12/10/2022 2 [place] [employer] Tess Nicolas [id number] Tess Nicolas 12/09/2022 2 [facility] - DOS ON OR AFTER 20 (MEDICAID REPLACEMENT - HMO) Tess Nicolas [id number] Tess Nicolas Notes Date Note Type Note Provider Name and Address Organization Details Recorded Time 09/26/2022 text/html Pt is here today for dizziness. Has been going on for about 3 days constant. Has some blurred vision as well. Has had meclizine in the past which did help some but did not take it away. Heather Babcock NP [address], [place], [address], [employer] 09/26/2022 16:48:09 12/09/2022 text/html She is here today for low back/sciatica pain. Has been going on for a month . has went to [facility] last month and was given Prednisone, Flexeril and diclofenac. States that she can not take the muscle relaxer because it makes her want to sleep to much. Needs something for the pain. Pain level - 7/10pain on the right side of the back no injury, no fallno weakness Cecilia Ceja MD [address], [place], [address], [employer] 12/09/2022 16:37:53 OBGyn Episode No OBEpisode recorded.
--- OUTSIDE RECORDS SUMMARY | 2024-08-03 14:40 | XMS_ITS | Data Portability ---
Author Organization [facility] Address [address] [address] Care Team Providers Care Resource Management Planner Name Role Phone LANI MAST Referring Provider Assessment No assessment recorded. Plan of Treatment Reminders Order Date Submit Date Provider Last Modified By Organization Details Last Modified Time Details Appointments None record ed. Lab None record ed. Referral None record ed. Procedures None record ed. Surgeries None record ed. Imaging None record ed. Medication Orders None record ed. Patient TargetsNo targets recorded. Patient InstructionsNo instructions recorded. Reason for Referral None Reported. Procedures Surgical History Date Name Laterality Status Provider Name and Address Organization Details Recorded Time 01/21/2016 Sleep Study completed Ramo Israel [facility] 01/22/2016 16:01:50 Imaging Results None recorded. Procedure Notes None recorded. Medical Equipment None Reported. Medications Name Sig Start Date Stop Date Status Note LastModified by Organization Details LastModified Time lisinopril 20 mg-hydrochloro thiazide 12.5 mg tablet active Not Available Not Available No t Available alprazolam 0.25 mg tablet active Not Available Not Availab le Not Available levofloxacin 500 mg tablet active Not Available Not Availabl e Not Available hydroxyzine pamoate 25 mg capsule active Not Available Not Available Not Available bupropion HCl XL 150 mg 24 hr tablet, extended release active Not Available Not Available Not Available Vitals Date Recorded Body height Body weight Body mass index (BMI) Provider Name and Address Organization Details Last Updated DateTime 01/21/2016 162.56 cm 32526.17 g 36.6 kg/m2 Denia Low [facility] 01/21/2016 15:55:28 Social History None recorded. Functional Status None recorded. Mental Status None recorded. Family History Nothing Reported. Medical History No medical history recorded. Gynecological HistoryNo gynecological history recorded. Obstetrics History GPAL:G 0 P 0 0 0 0 Past Encounters Encounter ID Performer Location Encounter Start Date Encounter Closed Date Diagnosis/Indication Diagnosis SNOMED-CT Code Diagnosis ICD10 Code Diagnosis Note [id number] [facility] (20) [address] [facility] [address] [place] [address] 01/21/2016 15:10:55 01/22/2016 16:02:46 Obstructive sleep apnea of adult [id number] 103 G47.33 Health Concerns Section Related Observation LastModified by Organization Detai ls LastModified Time None Recorded Concern Status LastModified by Organization Details LastModified Time None Recorded Advance Directives Directive None Recorded Payers Insurance Date Sequence Insurance Name Policy Number Policy Martin Covered Member ID Martin Member ID Guarantor Name 01/17/2016 1 [facility] [id number] Chriscoreen Nicolas [id number] Tess Maria Isabel Notes Date Note Type Note Provider Name and Address Organization Details Recorded Time 01/21/2016 text/html HST SetupReporte d [email or web address].HST set upDemonstrated to patient how to set up Home Sleep Test Device. The patient was able to return demonstration with out difficulty.; The patient is returning the device the following morning.Notes:Pt will be returning the device after she drops her children off at school at 12:30. cb Jonas Melendez MD, F.C.C.P. [address] [facility] [address] [facility], [place], [address], [place] [facility] 01/23/2016 07:05:20 OBGyn Episode No OBEpisode recorded.
--- OUTSIDE RECORDS SUMMARY | 2024-08-03 14:40 | XMS_ITS | Clinical Summary ---
Author Organization [facility] Address [address] [place] [address] Care Team Providers Care Ocean Import Representative Name Role Phone Unavailable Primary Care Provider Unavailabl e Source Comments [facility],non-owned Affiliates and Associated Physician Practices is amultiple site organization consisting of ambulatory clinics and hospital sitesin [place], [place], [place] and [place]. This disclosure is being madepursuant to the Care Everywhere program and may not contain all information available regarding this patient. 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 Gender Identity Not on file Sexual Orientation Not on file Plan of Treatment Health Maintenance Due Date Last Done Comments COLOGUARD (AGES 45-75) - COL ON CA SCREENING 1975 COLON MONITORING 1975 COLONOSCOPY - COLON CA SCREENING 1975 CT COLONOGRAPHY - COLON CA SCREENING 1975 Colorectal Cancer Screening 1975 FIT - COLON CA SCREENING 1975 FLEX SIG - COLON CA SCREENING 1975 LIPID TESTING 1975 MAMMOGRAM 1975 HIV SCREENING 12/26/1990 HEPATITIS C SCREENING 12/22/1993 DTAP/TDAP/TD VACCINES (1 - Tdap) 12/26/1994 HEPATITIS B VACCINE (1 of 3 - 19+ 3-dose series) 12/26/1994 COVID-19 VACCINE (2023-2 5 season) 2023 DEPRESSION SCREENING 02/17/2024 INFLUENZA VACCINE (Season Ended) 2024 ZOSTER VACCINE (1 of 2) 12/26/2025 HIB VACCINE Aged Out No longer eligi ble based on patient's age to complete this topic HPV VACCINE Aged Out No longer eligi ble based on patient's age to complete this topic MENINGOCOCCAL (Group B) VACC INE SHARED DECISION-MAKING Aged Out No longer eligibl e based on patient's age to complete this topic MENINGOCOCCAL GROUPS A/C/Y/W VACCINE Aged Out No longer eligible b ased on patient's age to complete this topic PNEUMOCOCCAL VACCINE Aged Out No long er eligible based on patient's age to complete this topic Insurance [facility] MEDICAID - [place]
== END 2024-08-03 12:59 | disposition home or self-care (01) ==
LOC: ANHSURGERY 13:08
PROVIDERS: PCP Internal Medicine; Visit Provider Obstetrics & Gynecology
DX: N92.0 Excessive and frequent menstruation with regular cycle (principal); I10 Essential (primary) hypertension; Z01.818 Encounter for other preprocedural examination
CPT/HCPCS: 36415; 80053; 86850; 86900; 86901

== ENCOUNTER 2024-08-05 00:46 | Day surgery (SDC) | payer OTHER, MEDICAID, SELFPAY ==
[2024-08-02 14:17] VITALS: BMI 47.4
--- NOTE | 2024-08-02 14:18 | PC.NURSE ---
Report to the Outpatient Waiting Room, entrance under the green pavilion located off [facility], at time _0830_ on date _[id number]_. Planned Procedure Time: _1030_.? Time changes happen often and if your time is changed the preop area will call you the afternoon before. - You and your visitor will be asked to self-screen and do not enter if you have any COVID symptoms. Please call surgeon if you need to reschedule. - A mask is optional within the hospital at this time. Patients may have clear liquids (water, carbonated beverages, clear teas, apple juice) until 3 hours prior to surgery with a maximum of 20 ounces. - No food from midnight until time of surgery and no smoking, or chewing tobacco (or any form of nicotine). No chewing gum, candy or mints. Take only the following medications with a SIP of water on the morning of surgery: ____None DO NOT STOP ANY OF YOUR OTHER PRESCRIPTION MEDICATIONS PRIOR TO SURGERY EXCEPT THE FOLLOWING Hold all vitamins and supplements for 3 days per anesthesiologist. Medications to discontinue per physician Date to take last dose Please no make-up, nail trinidadian, hairspray, perfume, deodorant, or body powder the day of surgery.? No jewelry (including any body piercings) or valuables the day of surgery, leave them at home.? Please take a shower or bath the night before, or the morning of, surgery with an antibacterial soap.? Wear comfortable, loose fitting clothing.? - Jewelry must be removed prior to entering the operating room.? Rings and piercings that are not removed may be cut off. - The hospital will not accept responsibility for valuables.? - Please leave all valuables, including medications, at home the day of surgery. If you are going home after surgery, a licensed carrier driver must drive you home.? - NO public transportation without another adult if you receive anesthesia. - We recommend that an adult stay with you for 24 hours following discharge. - We also recommend that you do not drive, make important decision, drink alcoholic beverages, or take any drugs that were not prescribed by your health care provider for at least 24 hours after your discharge time. Follow any additional instructions given to you from your surgeon. Telephone instructions given to __Dianayl___and asked if any additional questions and then verbalized understanding. Patient advised to call surgeon office or pre surgery nurse liaison [phone] if any additional questions.
[2024-08-05] VITALS (10 sets, daily range): BP systolic 122–160; BP diastolic 68–88; PULSE 56–83; RESP 9–18; TEMP 36.2–36.7; O2SAT 93–99; BMI 38.2
--- OUTSIDE RECORDS SUMMARY | 2024-08-05 00:48 | XMS_ITS | CONTINUITY OF CARE DOCUMENT ---
Author Name lupe, eneser Address Unknown Organization [facility] Address [address] [place] [address] Phone [phone] Care Team Providers Care Salesperson Women'S Dresses Name Role Phone Dalton Vogel MD Unavailable Hardy Ceja MD Unavailable Hardy Ceja MD Unavailable PROBLEMS Condition Status Date Provider Notes DIZZINESS active Kirk Holt MD HYPERTENSION-04/25 RT STRESS NEG active ? Wilber Kiser RN OBESITY active Kirk Holt MD ABNORMAL ELECTROCARDIOGRAM active Kirk Holt MD ENCOUNTERS Date Type Provider Location Encounter Diag nosis - In-person encounter Office Visit Kirk Holt MD [place] [facility] - In-person encounter Office Visit Kirk Holt MD [facility] DIZZINESSHYPERTENSION-3/1 0 RT STRESS NEGOBESITYABNORMAL ELECTROCARDIOGRAM VITAL SIGNS Date Observation Value Provider blood pressure, diastolic 87 mm[Hg] Ja guevara Kiser RN blood pressure, systolic 134 mm[Hg] Wilber Kiser RN pulse rate 78 /min Wilber Kiser RN oxygen saturation, oximetry 100 % Wilber Kiser RN respiratory rate E&M 16 /min Wilber prieto RN weight E&M 2124 [lb_av] Wilber Kiser RN blood pressure, diastolic 90 mm[Hg] AB MELIDA BLAKE MD blood pressure, systolic 132 mm[Hg] RASHAWN BLAKE MD blood pressure, diastolic, left arm 103 m m[Hg] Nupur Carreno MD blood pressure, systolic, left arm 138 mm [Hg] Nupur Carreno MA blood pressure, diastolic, right arm 106 mm[Hg] Nupur Carreno MD blood pressure, systolic, right arm 146 m m[Hg] Nupur Carreno MD oxygen saturation, oximetry 99 % Nupur Carreno MA blood pressure, diastolic 106 mm[Hg] Karla Carreno MA blood pressure, systolic 146 mm[Hg] Kennedy Carreno MD pulse rate 87 /min Nupur Carreno MD respiratory rate E&M 16 /min Nupur Carreno MD weight E&M 218 [lb_av] Nupur Carreno MD ALLERGIES No Known Drug Allergies HISTORY OF MEDICATION USE Medication Status Instructions Dates Provider Indications Com ments ANTIVERT 12.5 MG TABS active po three times daily Kirk Holt MD SOCIAL HISTORY Date Observation Value Provider social history reviewed E&M reviewed Wilber Kiser RN social history E&M Marital Statu s: L blaise with family/friends E thnicity: Kirk Holt MD drug use none Kirk Holt MD social history reviewed E&M reviewed Kirk Holt MD physical exercise, f requency, days per week yes [employer] caffeine use, averag e drinks per day no [employer] number of years as a smoker 10 years or m ore [employer] smoking status Quit [employer] FUNCTIONAL STATUS Date Observation Value Provider periodic limb movement index absent (0) ARUN BLAKE MD MENTAL STATUS Date Observation Value Provider assessment of judgme nt and insight E&M Alert and oriented to time, place and person. Mood and affect are normal. Wilber iKser RN assessment of judgme nt and insight E&M Alert and oriented to time, place and person. Mood and affect are normal. Kirk Holt MD INSURANCE PROVIDERS Payer name Policy type / Coverage type [place] [employer] MEDICAID (2) Medicaid [id number] TREATMENT PLAN Date Name Performer New Patient: Abn EKG @ [facility] Garett Holt MD New Patient: Abn EKG @ [facility]: B P today: 146/106 Kirk Holt MD New Patient: Abn EKG @ [facility] [place]: B P today: 146/106 Prior BP: / () Kirk Holt MD Date Name Holter Monitor 24 Hr Complete Echo HISTORY OF PROCEDURES Procedure Date Procedure Name Provider Procedure Notes S tatus EKG Kirk Holt MD complet ed
--- OUTSIDE RECORDS SUMMARY | 2024-08-05 00:48 | XMS_ITS | Data Portability ---
Author Organization [facility], Main Office Address [address] [place] [address] Care Team Providers Care Certified Ophthalmic Assistant Name Role Phone CECILIA CEJA Primary Care Provider CECILIA CEJA Referring Provider Assessment No assessment recorded. Plan of Treatment Reminders Order Date Submit Date Provider Last Modified By Organization Details Last Modified Time Details Appointments None recorded. Lab None recorded. Referral physical therapist referral [address] Physical, Occupational [facility] Medicine [facility] Re[facility], [address] [place], [address], 3 08:36:40 Procedures None recorded. Surgeries None recorded. Imaging XR, lumbar spine 2022 023 [facility] ([facility]), [address] [place], [address], 3 21:14:10 XR, sacroiliac joint(s) 2022 023 [facility] ([facility]), [address] [place], [address], 3 21:15:17 Medication Orders tramadol 50 mg tablet [facility]23 [facility] Not [facility] 3 15:00:45 diclofenac sodium 75 mg tablet,mary yed release 2022 023 [facility] [id number] In [facility], [address] [place], [address], 3 16:32:40 cyclobenzap rine 5 mg tablet 2022 023 [facility] [id number] In [facility], [address] [place] [address], [address], 3 16:32:40 Medrol (Tony) 4 mg tablets in a dose pack 2022 023 [place] [address] In [facility], [address] [place] [address], [address], 3 16:42:22 Zithromax Z-Tony 250 mg tablet 2022 023 [place] [id number] In [facility], [address] [place] [address], [address], 3 16:42:22 fluticasone propionate 50 mcg/actuati on nasal spray,suspe nsion 2022 023 [place] [address] In [facility], [address] [place] [address], [address], 3 16:42:22 Patient TargetsNo targets recorded. Patient InstructionsNo instructions recorded. Reason for Referral Physical Therapist Referral for Low back pain Referring Physician: Cecilia Ceja, Internal Medicine, Encounter Date: 12/09/2022 Results Created Date Observation Date Name Description Value Unit Range Abnormal Flag Note LastModifiedBy Organization Detail LastModifiedTime 10/30/19 22 10/29/2021 URINA LYSIS COMPL ETE/I RIS W/RFX pH 6.0 pH_un its 5.0-9. 0 Not Available [facility] (Lab) [address] [place], [address], 10/29/2021 13:30:29 10/30/19 22 10/29/2021 URINA LYSIS COMPL ETE/I RIS W/RFX color yellow Not Available [facility] (Lab) [address] [place], [address], 10/29/2021 13:30:29 10/30/19 22 10/29/2021 URINA LYSIS COMPL ETE/I RIS W/RFX appear turbid abnormal Not Available [facility] (Lab) [address] [place], [address], 10/29/2021 13:30:29 10/30/19 22 10/29/2021 URINA LYSIS COMPL ETE/I RIS W/RFX specific gravity 1.021 1.001- 1.030 Not Available [facility] (Lab) [address] [facility] [place], [address], 10/29/2021 13:30:29 10/30/19 22 10/29/2021 URINA LYSIS COMPL ETE/I RIS W/RFX leukocytes 250 funmilayo/u L negati ve- abnormal Not Available [facility] (Lab) [address] [place], [address], 10/29/2021 13:30:29 10/30/19 22 10/29/2021 URINA LYSIS COMPL ETE/I RIS W/RFX nitrite negati ve negati ve- Not Available [facility] (Lab) [address] [place], [address], 10/29/2021 13:30:29 10/30/19 22 10/29/2021 URINA LYSIS COMPL ETE/I RIS W/RFX protein 20 mg/dL negati ve- abnormal Not Available [facility] (Lab) [address] [facility] [place], [address], 10/29/2021 13:30:29 10/30/19 22 10/29/2021 URINA LYSIS COMPL ETE/I RIS W/RFX glucose normal mg/dL normal - Not Available [facility] (Lab) [address] [place], [address], 10/29/2021 13:30:29 10/30/19 22 10/29/2021 URINA LYSIS COMPL ETE/I RIS W/RFX ketones negati ve mg/dL negati ve- Not Available [facility] (Lab) [address] [place], [address], 10/29/2021 13:30:29 10/30/19 22 10/29/2021 URINA LYSIS COMPL ETE/I RIS W/RFX urobilinogen normal mg/dL normal - Not Available [facility] (Lab) [address] [place], [address], 10/29/2021 13:30:29 10/30/19 22 10/29/2021 URINA LYSIS COMPL ETE/I RIS W/RFX bilirubin negati ve mg/dL negati ve- Not Available [facility] (Lab) [address] [place], [address], 10/29/2021 13:30:29 10/30/19 22 10/29/2021 URINA LYSIS COMPL ETE/I RIS W/RFX blood negati ve mg/dL negati ve- Not Available [facility] (Lab) [address] [place], [address], 10/29/2021 13:30:29 10/30/19 22 10/29/2021 URINA LYSIS COMPL ETE/I RIS W/RFX white blood cells 0-8 /i??h pfi?? 0-8 Not Available [facility] (Lab) [address] [place], [address], 10/29/2021 13:30:29 10/30/19 22 10/29/2021 URINA LYSIS COMPL ETE/I RIS W/RFX red blood cells 5-10 /i??h pfi?? 0-4 abnormal Not Available [facility] (Lab) [address] [place], [address], 10/29/2021 13:30:29 10/30/19 22 10/29/2021 URINA LYSIS COMPL ETE/I RIS W/RFX bacteria occasi onal abnormal Not Available [facility] (Lab) [address] [place], [address], 10/29/2021 13:30:29 10/30/19 22 10/29/2021 URINA LYSIS COMPL ETE/I RIS W/RFX mucous many /i??l pfi?? abnormal Not Available [facility] (Lab) [address] [place], [address], 10/29/2021 13:30:29 10/30/19 22 10/29/2021 URINA LYSIS COMPL ETE/I RIS W/RFX squamous epithelial packed field /i??l pfi?? abnormal Not Available [facility] (Lab) [address] [place], [address], 10/29/2021 13:30:29 10/30/19 22 10/29/2021 TSH thyroid-stim ulating hormone 1.500 uIU/m L 0.465- 4.680 Not Available [facility] (Lab) [address] [place], [address], 10/29/2021 14:16:33 10/30/19 22 10/29/2021 LIPID PANEL [...] WILL NOT BE REPOR MERVIN. Not Available [facility] (Lab) [address] [place], [address], 10/29/2021 13:43:13 10/30/19 22 10/29/2021 LIPID PANEL cholesterol 178 mg/dL 140-19 9 NIH MARY NSUS RECOM MENDA TION FOR TRINA STERO L: ADULT CHILD LOW RISK: <200 <170 BORDE RLINE : <200- 239 ----- HIGH RISK: >240 >200 Not Available [facility] (Lab) [address] [place], [address], 10/29/2021 13:43:13 10/30/1910/29/2021 LIPID PANEL triglyceride s 108 mg/dL 0-150 NIH MARY NSUS REPOR T RECOM MENDA TION FOR TRIGL YCERI KRISTINA: ADULT CHILD LOW RISK: <150 ----- BODER LINE: 150-1 99 ----- HIGH RISK: >200 ----- Not Available [facility] (Lab) [address] [place], [address], 10/29/2021 13:43:13 10/30/1910/29/2021 LIPID PANEL HDL cholesterol 54 mg/dL 40- Not Available [facility] (Lab) [address] [place], [address], 10/29/2021 13:43:13 10/30/19 22 10/29/2021 COMPR EHENS GUNNAR METAB OLIC PANEL sodium 138 mmol/ L 137-14 5 Not Available [facility] (Lab) [address] [place], [address], 10/29/2021 13:43:03 10/30/19 22 10/29/2021 COMPR EHENS GUNNAR METAB OLIC PANEL potassium 4.2 mmol/ L 3.5-5. 1 Not Available [facility] (Lab) [address] [place], [address], 10/29/2021 13:43:03 10/30/19 22 10/29/2021 COMPR EHENS GUNNAR METAB OLIC PANEL chloride 105 mmol/ L 98-107 Not Available [facility] (Lab) [address] [place], [address], 10/29/2021 13:43:03 10/30/19 22 10/29/2021 COMPR EHENS GUNNAR METAB OLIC PANEL carbon dioxide 24 mmol/ L 22-30 Not Available [facility] (Lab) [address] [place], [address], 10/29/2021 13:43:03 10/30/19 22 10/29/2021 COMPR EHENS GUNNAR METAB OLIC PANEL anion gap 13.2 mmol/ L 14-22 low Not Available [facility] (Lab) [address] [place], [address], 10/29/2021 13:43:03 10/30/19 22 10/29/2021 COMPR EHENS GUNNAR METAB OLIC PANEL glucose 117 mg/dL 70-99 high Not Available [facility] (Lab) [address] [place], [address], 10/29/2021 13:43:03 10/30/19 22 10/29/2021 COMPR EHENS GUNNAR METAB OLIC PANEL BUN 8 mg/dL 8-19 Not Available [facility] (Lab) [address] [place], [address], 10/29/2021 13:43:03 10/30/19 22 10/29/2021 COMPR EHENS GUNNAR METAB OLIC PANEL creatinine 0.82 mg/dL 0.66-1 .25 Not Available [facility] (Lab) [address] [place], [address], 10/29/2021 13:43:03 10/30/19 22 10/29/2021 COMPR EHENS GUNNAR METAB OLIC PANEL GFR >60 Refer ence Range : Boyce ge GFR Healt hy Adult : >60 [...] calcu lator is avail able on the [facility] websi te: [email or web address] :[email or web address] [email or web address] r_[email or web address] culat or Not Available [facility] (Lab) [address] [place], [address], 10/29/2021 13:43:03 10/30/19 22 10/29/2021 COMPR EHENS GUNNAR METAB OLIC PANEL alkaline phosphatase 112 U/L 38-126 Not Available [facility] (Lab) [address] [place], [address], 10/29/2021 13:43:03 10/30/19 22 10/29/2021 COMPR EHENS GUNNAR METAB OLIC PANEL alanine aminotransfe rase 21 U/L 0-35 Not Available [facility] (Lab) [address] [place], [address], 10/29/2021 13:43:03 10/30/19 22 10/29/2021 COMPR EHENS GUNNAR METAB OLIC PANEL aspartate aminotransfe rase 20 U/L 15-37 Not Available [facility] (Lab) [address] [place], [address], 10/29/2021 13:43:03 10/30/19 22 10/29/2021 COMPR EHENS GUNNAR METAB OLIC PANEL bilirubin, total 0.50 mg/dL 0.20-1 .30 Not Available [facility] (Lab) [address] [place], [address], 10/29/2021 13:43:03 10/30/19 22 10/29/2021 COMPR EHENS GUNNAR METAB OLIC PANEL calcium 9.6 mg/dL 8.4-10 .2 Not Available [facility] (Lab) [address] [place], [address], 10/29/2021 13:43:03 10/30/19 22 10/29/2021 COMPR EHENS GUNNAR METAB OLIC PANEL total protein 6.6 g/dL 6.3-8. 2 Not Available [facility] (Lab) [address] [place], [address], 10/29/2021 13:43:03 10/30/19 22 10/29/2021 COMPR EHENS GUNNAR METAB OLIC PANEL albumin 3.9 g/dL 3.4-5. 0 Not Available [facility] (Lab) [address] [place], [address], 10/29/2021 13:43:03 10/30/19 22 10/29/2021 COMPR EHENS GUNNAR METAB OLIC PANEL globulin 2.7 g/dL 2.6-4. 2 Not Available [facility] (Lab) [address] [place], [address], 10/29/2021 13:43:03 10/30/19 22 10/29/2021 COMPR EHENS GUNNAR METAB OLIC PANEL A/G ratio 1.4 ratio 1.0-2. 0 Not Available [facility] (Lab) [address] [place], [address], 10/29/2021 13:43:03 10/30/19 22 10/29/2021 URINA LYSIS COMPL ETE/I RIS W/RFX pH 6.0 pH_un its 5.0-9. 0 Not Available [facility] (Lab) [address] [place], [address], 10/29/2021 13:26:00 10/30/19 22 10/29/2021 URINA LYSIS COMPL ETE/I RIS W/RFX color yellow Not Available [facility] (Lab) [address] [place], [address], 10/29/2021 13:26:00 10/30/19 22 10/29/2021 URINA LYSIS COMPL ETE/I RIS W/RFX appear turbid abnormal Not Available [facility] (Lab) [address] [place], [address], 10/29/2021 13:26:00 10/30/19 22 10/29/2021 URINA LYSIS COMPL ETE/I RIS W/RFX specific gravity 1.021 1.001- 1.030 Not Available [facility] (Lab) [address] [place], [address], 10/29/2021 13:26:00 10/30/19 22 10/29/2021 URINA LYSIS COMPL ETE/I RIS W/RFX leukocytes 250 funmilayo/u L negati ve- abnormal Not Available [facility] (Lab) [address] [place], [address], 10/29/2021 13:26:00 10/30/19 22 10/29/2021 URINA LYSIS COMPL ETE/I RIS W/RFX nitrite negati ve negati ve- Not Available [facility] (Lab) [address] [place], [address], 10/29/2021 13:26:00 10/30/19 22 10/29/2021 URINA LYSIS COMPL ETE/I RIS W/RFX protein 20 mg/dL negati ve- abnormal Not Available [facility] (Lab) [address] [place], [address], 10/29/2021 13:26:00 10/30/19 22 10/29/2021 URINA LYSIS COMPL ETE/I RIS W/RFX glucose normal mg/dL normal - Not Available [facility] (Lab) [address] [place], [address], 10/29/2021 13:26:00 10/30/19 22 10/29/2021 URINA LYSIS COMPL ETE/I RIS W/RFX blood negati ve mg/dL negati ve- Not Available [facility] (Lab) [address] [place], [address], 10/29/2021 13:26:00 10/30/19 22 10/29/2021 URINA LYSIS COMPL ETE/I RIS W/RFX ketones negati ve mg/dL negati ve- Not Available [facility] (Lab) [address] [place], [address], 10/29/2021 13:26:00 10/30/19 22 10/29/2021 URINA LYSIS COMPL ETE/I RIS W/RFX urobilinogen normal mg/dL normal - Not Available [facility] (Lab) [address] [place], [address], 10/29/2021 13:26:00 10/30/19 22 10/29/2021 URINA LYSIS COMPL ETE/I RIS W/RFX bilirubin negati ve mg/dL negati ve- Not Available [facility] (Lab) [address] [place], [address], 10/29/2021 13:26:00 10/30/19 22 10/29/2021 URINA LYSIS COMPL ETE/I RIS W/RFX white blood cells 0-8 /i??h pfi?? 0-8 Not Available [facility] (Lab) [address] [place], [address], 10/29/2021 13:26:00 10/30/19 22 10/29/2021 URINA LYSIS COMPL ETE/I RIS W/RFX red blood cells 5-10 /i??h pfi?? 0-4 abnormal Not Available [facility] (Lab) [address] [place], [address], 10/29/2021 13:26:00 10/30/19 22 10/29/2021 URINA LYSIS COMPL ETE/I RIS W/RFX bacteria occasi onal abnormal Not Available [facility] (Lab) [address] [place], [address], 10/29/2021 13:26:00 10/30/19 22 10/29/2021 URINA LYSIS COMPL ETE/I RIS W/RFX mucous many /i??l pfi?? abnormal Not Available [facility] (Lab) [address] [place], [address], 10/29/2021 13:26:00 10/30/19 22 10/29/2021 URINA LYSIS COMPL ETE/I RIS W/RFX squamous epithelial packed field /i??l pfi?? abnormal Not Available [facility] (Lab) [address] [place], [address], 10/29/2021 13:26:00 10/30/19 22 10/29/2021 URINA LYSIS COMPL ETE/I RIS W/RFX unclassified cast 3 abnormal Not Available [facility] (Lab) [address] [place], [address], 10/29/2021 13:26:00 11/08/19 22 11/07/2021 HEMOG LOBIN A1C HA1C 5.4 % 4.0-6. 0 Diabe feroz Scree haris Crite ani: <5.7% Consi stent with absen ce of diabe feroz 5.7-6 .4% Consi stent with incre ased risk for diabe feroz (pred iabet es) >OR=6 .5% Consi stent with diabe feroz REFER ENCE: Diabe feroz Care 2016, 39(Patel ppl.1 ):s13 -s22 Not Available [facility] ([facility]) [address], [place], [address], 11/07/2021 22:16:17 11/26/19 22 07/30/2018 MAMMO , scree haris, digit al, bilat eral No observ ation record ed. [id number] Not Available 04/16/2022 03:35:59 11/29/19 22 11/26/2021 upper endos copy proce dure (EGD) (PROC ) No observ ation record ed. [id number] Not Available 04/16/2022 03:35:59 12/11/19 23 12/10/2022 XR, lumba r spine [facility] [address] [facility] [place] [address] Patien t Name: TESS NICOLAS ion #: [id number] Sex: F : 1975 0 Dictat [...] ly Signed by: Ray Burch at 2022 20:12: 53 PM Page 1 [email or web address] [facility] (Imaging) [address] [place], [address], 12/12/2022 16:34:03 12/11/19 23 12/10/2022 XR, sacro iliac joint (s) [facility] [address] [place] [address] Patien t Name: TESS NICOLAS Access ion #: [id number] Sex: F : 1975 0 Dictat [...] at 2022 20:14: 05 PM Page 1 [email or web address] [facility] (Imaging) [address] [place], [address], 12/12/2022 16:33:07 03/25/19 24 03/25/2023 colon oscop y scree haris (PROC ) No observ ation record ed. [email or web address] [facility] (Pre-Screen) [address] [place], [address], 03/25/2023 11:07:43 Result Notes Documentation Provider Name and Address Organization Details Recorded Time Xr, Lumbar Spine : [facility] [address] [place] [address] Patient Name: TESS NICOLAS Sex: F : [...] fracture or subluxation. Page 1 EBENEZER Carballo [employer] 12/12/2022 16:34:03 Xr, Sacroiliac Joint(s) : [facility] [address] [place] [address] Patient Name: TESS NICOLAS Sex: F : [...] fracture or dislocation. Page 1 EBENEZER Carballo [employer] 12/12/2022 16:33:07 Problems Name Problem SNOMED Code Status Onset Date Resolution Date Notes Provider Name and Address Organization Details Recorded Time Anemia 922536849 Active 2022 Cecilia Ceja MD [address] [facility] [address], [place], [address] , [facility] 3 09:15:49 Blister of lip 48776310409 03 Active 2022 Nae waterman, RMA null, [facility] 3 17:03:41 Pain of knee region 9362204968 Completed 202111/25/2021 Not Available [facility] 3 03:26:36 Otalgia of left ear 1967410254 Completed 202111/25/2021 Not Available [facility] 3 03:26:36 Impacted cerumen in right ear 99791822043 20820 Completed 202111/25/2021 Not Available [facility] 3 03:26:36 Viral gastroent eritis 794952857 Completed 202111/25/2021 Not Available [facility] 3 03:26:36 Contusion of left knee 68014264388 383125 Completed 202111/25/2021 Not Available [facility] 3 03:26:37 Tendiniti s of right elbow 60632900161 499153 Completed 202111/25/2021 Not Available [facility] 3 03:26:37 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 2021 Not Available [facility] 3 03:26:37 Constipat ion 82024633 Completed Not Available [facility] 3 03:26:37 Acute sinusitis 37852880 Active 2021 Not Available [facility] 3 03:26:37 Acute sinusitis 72513486 Completed 202111/25/2021 Not Available [facility] 3 03:26:37 Pain of right elbow joint 20115897146 843733 Completed 202111/25/2021 Not Available [facility] 3 03:26:37 Backache 719007118 Active Not Available [facility] 3 03:26:37 On examinati on - BP reading very high Completed Not Available [facility] 3 03:26:37 Blood glucose outside reference range 523251836 Active 2021 Not Available [facility] 3 03:26:37 Transient hypertens ion of - not delivered 526102153 Completed Not Available [facility] 3 03:26:37 Gastroeso phageal reflux disease 379856779 Active 2021 Not Available [facility] 3 03:26:37 Lower esophagea l ring 386967206 Active 2021 Not Available [facility] 3 03:26:37 Headache 24529340 Active 2021 Not Available [facility] 3 03:26:38 Edema 637581947 Active 2021 Not Available [facility] 3 03:26:38 Wax in ear canal 579622669 Completed Not Available [facility] 3 03:26:38 Low back pain 975021331 Active 2021 Not Available [facility] 3 03:26:38 Pain in right arm 658606843 Completed 202111/25/2021 Not Available [facility] 3 03:26:38 Pain in pelvis 06768001 Completed Not Available [facility] 3 03:26:38 On examinati on - lesion Completed Not Available [facility] 3 03:26:38 Lateral epicondyl itis of right humerus 43979981136 9107 Completed 202111/25/2021 Not Available [facility] 3 03:26:38 Vertigo 645051718 Completed Not Available [facility] 3 03:26:38 Dizziness 035708760 Active 2021 Not Available [facility] 3 03:26:39 Dysphagia 49064894 Completed 202111/25/2021 Not Available [facility] 3 03:26:39 Obesity 493106046 Active Not Available [facility] 3 03:26:39 Radial tunnel syndrome 171535209 Completed 202111/25/2021 Not Available [facility] 3 03:26:39 Anxiety 22364435 Active Not Available [facility] 3 03:26:39 Delivery normal 77435908 Completed Not Available [facility] 3 03:26:39 Cough 84837122 Completed 202111/25/2021 Not Available [facility] 3 03:26:39 Upper respirato ry infection 89609471 Completed Not Available [facility] 3 03:26:39 Pain of wrist region 38461275 Completed Not Available [facility] 3 03:26:40 Essential hypertens ion 34782782 Active Not Available [facility] 3 03:26:40 Rhinitis 96571242 Active Not Available [facility] 3 03:26:40 Dyspareun ia 46757552 Active Not Available [facility] 3 03:26:40 Ex-smoker 1181632 Active Not Available [facility] 3 03:26:40 Notes:Some problems listed i n Documents: #[id number], #[id number] could not be added to this patient's chart. Please review these documents and add these problems to the patient's chart manually as needed. Problem Notes None recorded. Procedures Surgical History Date Name Laterality Status Provider Name and Address Organization Details Recorded Time 03/14/19 21 Hernia Repair completed Not Available [facility] 04/16/2022 03:18:52 07/16/19 19 Date of Last Pap Smear completed Not Available [facility] 04/16/2022 03:18:51 [employer]OCK [employer] Procedure completed Not Available [facility] 04/16/2022 03:18:52 Appendectomy completed Not Available [facility] 04/16/2022 03:18:52 Colposcopy completed Not Available [facility] 04/16/2022 03:18:52 Removal of ovarian cyst(s) completed Not Available [facility] 04/16/2022 03:18:52 Tubal Ligation completed Not Available [facility] 04/16/2022 03:18:52 Cholecystectomy completed Not Available [facility] 04/16/2022 03:18:52 SHOCK [employer]BER INST[employer]ER Procedure completed Not Available [facility] 04/16/2022 03:18:52 Imaging Results None recorded. Procedure [...] administ ered by the provider 11/25 completed [facility]: 0003-04 94-20 Not Available Not Available Not [...] propionate 50 mcg/actuat ion nasal spray,susp ension [place] 2 sprays every day by intranas al [...] Updated DateTime 3 162.56 cm 40.7 kg/m2 910555. 39 g 97.6 [degF] 98 % 98 % 82 /min 156 mm[Hg] 94 mm[Hg] [place] [facility] [employer] [facility] 3 16:25:00 Date Recorded Body mass index (BMI) Body height Oxygen saturation Oxygen saturation in Arterial blood by Pulse oximetry Heart rate Body weight Systolic blood pressure Diastolic blood pressure Provider Name and Address Organization Details Last Updated DateTime 2 40.3 kg/m2 162.56 cm 99 % 99 % 80 /min 731016. 21 g 152 mm[Hg] 90 mm[Hg] Not Available [facility] 3 03:24:56 Date Recorded Body height Oxygen saturation Oxygen saturation in Arterial blood by Pulse oximetry Heart rate Respiratory rate Body temperature Body weight Systolic blood pressure Diastolic blood pressure Provider Name and Address Organization Details Last Updated DateTime 2 162.56 cm 98 % 98 % 78 /min 16 /min 97.5 [degF] 340258. 8 g 130 mm[Hg] 84 mm[Hg] Not Available [facility] 3 03:24:56 Date Recorded Body height Body mass index (BMI) Body weight Body temperature Heart rate Oxygen saturation Oxygen saturation in Arterial blood by Pulse oximetry Systolic blood pressure Diastolic blood pressure Provider Name and Address Organization Details Last Updated DateTime 3 162.56 cm 39.8 kg/m2 739570. 43 g 97.7 [degF] 92 /min 98 % 98 % 146 mm[Hg] 80 mm[Hg] [place] [facility] 3 16:04:30 Date Recorded Body height Oxygen saturation Oxygen saturation in Arterial blood by Pulse oximetry Heart rate Body temperature Body weight Systolic blood pressure Diastolic blood pressure Provider Name and Address Organization Details Last Updated DateTime 2 162.56 cm 98 % 98 % 102 /min 98.4 [degF] 230287. 58 g 160 mm[Hg] 90 mm[Hg] Not Available [facility] 3 03:24:56 Social History Question Answer Notes LastModified by Organizat ion Details LastModified Time Tobacco Smoking Status Former Smoker 2005 Not Available [facility] 04/16/2022 03:16:29 Do You Have An Advance Directive? No [id number] Information not available 04/16/2022 What Is Your Level Of Caffeine Consumption? Moderate [id number] Information not available 04/16/2022 In The 14 Days Before Symptom Onset, Have You Had Close Contact With A Laboratory-confirm ed COVID-19 While That Case Was Ill? No [id number] Information not available 04/16/2022 In The 14 Days Before Symptom Onset, Have You Had Close Contact With A Person Who Is Under Investigation For COVID-19 While That Person Was Ill? No [id number] Information not available 04/16/2022 What Type Of Diet Are You Following? REGULAR [id number] Information not available 04/16/2022 Have There Been Any Changes To Your Family Or Social Situation? No [id number] Information not available 04/16/2022 What Is The Fluoride Status Of Your Home? Unknown [id number] Information not available 04/16/2022 Do You Have A Medical Power Of Outreach Associate? No [id number] Information not available 04/16/2022 What Was The Date Of Your Most Recent Tobacco Screening? 06/26/2021 [id number] Information not available 04/16/2022 Do You Have Any Pets? Yes [id number] Information not available 04/16/2022 What Is Your Relationship Status? [id number] Information not available 04/16/2022 Do You Use Your Seat Belt Or Car Seat Routinely? Yes [id number] Information not available 04/16/2022 Do You Have Smoke And Carbon Monoxide Detectors In Your Home? Yes MIGRATION.[id number] 8487 Information not available 04/16/2022 At What Age Did You Start Smoking Tobacco? 16 MIGRATION.001936 0684 Information not available 04/16/2022 Are You Passively Exposed To Smoke? No MIGRATION.824596 1717 Information not available 04/16/2022 Are There Any Smokers In Your House? No MIGRATION.874861 2485 Information not available 04/16/2022 How Much Tobacco Do You Smoke? 1 PPD MIGRATION.071435 3146 Information not available 04/16/2022 Do You Use Sunscreen Routinely? Yes MIGRATION.263177 7012 Information not available 04/16/2022 Have You Recently Traveled Abroad? No MIGRATION.894831 1558 Information not available 04/16/2022 Do You Have Any Dietary Restrictions? No MIGRATION.460799 0958 Information not available 04/16/2022 Sex: Unknown Functional Status Question Answer Note LastModified by Organizat ion Details LastModified Time Do you use any illicit or recreational drugs? No MIGRATION.2135833 026 Information not available 04/16/2022 Do you or have you ever used any other forms of tobacco or nicotine? No MIGRATION.0960422 026 Information not available 04/16/2022 What is your level of alcohol consumption? Occasional MIGRATION.0851594 026 Information not available 04/16/2022 What is your exercise level? Occasional MIGRATION.3105185 026 Information not available 04/16/2022 Mental Status Question Answer Note LastModified by Organizat ion Details LastModified Time Do you feel stressed (tense, restless, nervous, or anxious, or unable to sleep at night)? [id number] MIGRATION.[id number] 6 Information not available 04/16/2022 Family History Relationship Description Onset Age of this Age Resolved Age Notes LastModified by Organization Details LastModified Time Mother Diabetes mellitus MIGRATION.077 [id number] Not available 04/16/2022 03:18:59 Mother Essential hypertension MIGRATION.274 [id number] Not available 04/16/2022 03:18:59 Mother Depressive disorder MIGRATION.058 [id number] Not available 04/16/2022 03:18:59 Daughter Depressive disorder MIGRATION.902 [id number] Not available 04/16/2022 03:18:59 Father Malignant tumor of colon MIGRATION.091 [id number] Not available 04/16/2022 03:18:59 Medical History Condition [...] SNOMED-CT Code Diagnosis ICD10 Code Diagnosis Note [id number] Cecilia Ceja MD [facility] Internal Med [id number] [place] [address] 05/23/2020 00:00:00 05/23/2020 14:12:19 [id number] MD KERRI [facility] [address] [address] 06/05/2020 00:00:00 06/05/2020 12:53:19 [id number] MD MARIELENA VarmaS_[facility] Internal Med [address] [facility] [place] [address] 08/29/2020 00:00:00 08/29/2020 09:59:33 [id number] Cecilia Ceja MD [facility] Internal Med [address] [facility] [place] [address] 09/06/2020 00:00:00 09/06/2020 15:46:58 [id number] MD MARIELENA [facility]maS[facility] Internal Med [address] [address] 10/08/2020 00:00:00 10/08/2020 14:36:36 [id number] [facility] ic[facility] _ATHENA_M IGRATION_ DEFAULT_1 _1 , 10/18/2020 00:00:00 10/18/2020 16:01:29 [id number] [facility] _ATHENA_M IGRATION_ DEFAULT_1 _1 , 12/03/2020 00:00:00 12/03/2020 15:12:42 [id number] Cecilia Ceja MD [facility] Internal Med [address] [address] 06/11/2021 00:00:00 06/11/2021 09:58:44 [id number] MD MARIELENA [facility] Internal Med [address] [address] 06/26/2021 00:00:00 06/26/2021 12:45:32 [id number] MD MARIELENA [facility]maS[facility] Internal Med [address] [address] 06/27/2021 00:00:00 06/27/2021 16:48:36 [id number] MD MARIELENA HortonS_[facility] Ortho [address] [address] 08/13/2021 00:00:00 08/13/2021 10:01:35 [id number] Cecilia Ceja MD [facility] Internal [address] [place] [address] 10/24/2021 00:00:00 10/24/2021 13:34:35 [id number] Cecilia Ceja MD [facility] Internal Med [address] [place] [address] 11/25/2021 00:00:00 11/25/2021 12:16:01 [id number] Cecilia Ceja MD [facility] Internal Med [address] [place] [address] 12/03/2021 00:00:00 12/03/2021 12:13:55 [id number] Cecilia Ceja MD [facility] Internal Med [address] [place] [address] 01/30/2022 00:00:00 01/30/2022 16:53:44 [id number] Cecilia Ceja MD [facility] Internal Med [address] [place] [address] 09/26/2022 16:21:03 09/27/2022 14:06:02 Acute sinusitis 67571198 J01.90 disussed diziness can be from lots [...] is due for f/u with dr ceja [id number] Cecilia Ceja MD [facility] Internal Med [address] [place] [address] 12/09/2022 15:41:08 12/09/2022 16:36:55 Low back pain 364107884 M54.50 Health Concerns Section Related Observation LastModified by Organization Detai ls LastModified Time None Recorded Concern Status LastModified by Organization Details LastModified Time None Recorded Advance Directives Directive N: Payers Insurance Date Sequence Insurance Name Policy Number Policy Martin Covered Member ID Martin Member ID Guarantor Name 03/21/2024 1 [facility] - DOS ON OR AFTER 20 (MEDICAID REPLACEMENT - HMO) Tess Nicolas [id number] Tess Nicolas 12/10/2022 2 [place] [facility] Tess Nicolas [id number] Tess Nicolas 12/09/2022 2 [facility] - DOS ON OR AFTER 20 (MEDICAID REPLACEMENT - HMO) Tess Nicolas [id number] Tess Nicolas Notes Date Note Type Note Provider Name and Address Organization Details Recorded Time 09/26/2022 text/html Pt is here today for dizziness. Has been going on for about 3 days constant. Has some blurred vision as well. Has had meclizine in the past which did help some but did not take it away. Heather Babcock NP [address], [place], [address], [employer] 09/26/2022 16:48:09 12/09/2022 text/html She is here [...] Ceja MD [address], [place], [address], [employer] 12/09/2022 16:37:53 OBGyn Episode No OBEpisode recorded.
--- OUTSIDE RECORDS SUMMARY | 2024-08-05 00:49 | XMS_ITS | Clinical Summary ---
Author Organization [facility] Address [address] [place] [address] Care Team Providers Care Manager Motor Name Role Phone Unavailable Primary Care Provider Unavailabl e Source Comments [facility],non-owned Affiliates and Associated Physician Practices is amultiple site organization consisting of ambulatory clinics and hospital sitesin [place], [place], [place] and [place]. This disclosure is being madepursuant to the Care Everywhere program and may not contain all information available regarding this patient. Last updated 17.[facility] Allergies No known active allergies Active Problems Problem Noted Date Diagnosed Date 20 weeks gestation of 01/28/2012 Immunizations Immunization Administration Dates Next Due Rho D Immune Globulin 01/28/2012 Social History Tobacco Use Types Packs/Day Years Used Date Smoking Tobacco: Never Assessed Comments Unknown Sex and Gender Information Value Date Recorded Sex Assigned at Not on file Legal Sex Female 2:18 PM DRAWER IN HAND Gender Identity Not on file Sexual Orientation [...] patient's age to complete this topic Insurance [facility] [place]
--- OUTSIDE RECORDS SUMMARY | 2024-08-05 00:49 | XMS_ITS | Data Portability ---
Author Organization [facility] Address [address] [address] Care Team Providers Care Triple Drum Operator Name Role Phone LANI MAST Referring Provider [phone] Assessment No assessment recorded. Plan of Treatment [...] Time 01/21/2016 Sleep Study completed Ramo Israel [facility]/ [facility] 01/22/2016 16:01:50 Imaging Results None recorded. Procedure [...] Details Last Updated DateTime 01/21/2016 162.56 cm 74326.17 g 36.6 kg/m2 Denia Low [facility] 01/21/2016 15:55:28 Social History None recorded. Functional Status None recorded. Mental Status None recorded. Family History Nothing Reported. Medical History No medical history recorded. Gynecological HistoryNo gynecological history recorded. Obstetrics History GPAL:G 0 P 0 0 0 0 Past Encounters Encounter ID Performer Location Encounter Start Date Encounter Closed Date Diagnosis/Indication Diagnosis SNOMED-CT Code Diagnosis ICD10 Code Diagnosis Note [id number] [facility], [facility] [phone] [facility] [address] [place] [address] 01/21/2016 15:10:55 01/22/2016 16:02:46 Obstructive sleep apnea of adult 1161430130 103 G47.33 Health Concerns Section Related Observation LastModified by Organization Detai ls LastModified Time None Recorded Concern Status LastModified by Organization Details LastModified Time None Recorded Advance Directives Directive None Recorded Payers Insurance Date Sequence Insurance Name Policy Number Policy Martin Covered Member ID Martin Member ID Guarantor Name 01/17/2016 1 [facility] [id number] Chriscoreen Nicolas [id number] Tess Maria Isabel Notes Date Note Type [...] at 12:30. cb Jonas Melendez MD, F.C.C.P. [address] [facility] [address] [facility], [place], [address], [place] [facility] 01/23/2016 07:05:20 OBGyn Episode No OBEpisode recorded.
--- OUTSIDE RECORDS SUMMARY | 2024-08-05 00:49 | XMS_ITS | Data Portability ---
Author Organization [facility] Address [address] [place] [id number] Assessment No assessment recorded. Plan of Treatment Reminders Order Date Submit Date Provider Last Modified By Organization Details Last Modified Time Details Appointments None recorded. Lab vitamin D, 25-hydroxy, total, serum 2023 024 [facility], [address] [place] [address], [address], [place], [address], 4 08:38:35 lipid panel, serum 2023 024 [facility], [address] [place] [address], [address], [place], [address], 4 20:09:17 CMP, serum or plasma 2023 024 [facility], [address] [place] [address], [address], [place], [address], 4 20:09:18 CBC 2023 024 [facility], [address] [place] [address], [address], [place], [address], 4 20:09:18 Referral gastroenter ologist referral 2023 024 angie Loja MD, [address] [facility], [address], [place], [address], 4 17:15:31 roller mechanic referral 2023 024 gracia Tripathi DPM, [address] [facility], [address], [place], [address], 4 00:11:51 Procedures None recorded. Surgeries None recorded. Imaging XR, knee, 3 view 2023 024 [facility] ([facility]), [address] [facility], [place], [address], 4 09:50:11 Medication Orders ibuprofen 600 mg tablet 2023 024 [id number] [facility], [address] [place], [address], 4 12:03:19 lisinopril 20 mg-hydrochl orothiazide 25 mg tablet 2023 024 [id number], [address] [place], [address], 4 12:03:19 Patient TargetsNo targets recorded. Patient Instructions Encounter Date Encounter Id Patient Instructions Last Modified By Organization Details Last Modified Time 02/25/2023 [id number] When You Want to Lose Weight: Care Instructions [email or web address] Not available 02/25/2023 12:03:15 A healthy lifestyle: care instructions [email or web address] Not available 02/25/2023 12:03:15 learning about high blood pressure [email or web address] Not available 02/25/2023 12:03:15 Reason for Referral Feed Mill Supervisor Referral for Thic kened nails Referring Physician: Saul Arambula, Internal Medicine, Encounter Date: 02/25/2023 Yard Switcher Referral for Family history of cancer of colon Referring Physician: Saul Arambula, Internal Medicine, Encounter Date: 02/25/2023 Results Created Date Observation Date Name Description Value Unit Range Abnormal Flag Note LastModifiedBy Organization Detail LastModifiedTime 02/25/19 24 02/25/2023 LIPID PANEL cholesterol, total 191 mg/dL 100-19 9 Not Available [facility] Him Department [address] [place] [address], [address], 02/25/2023 20:09:17 02/25/19 24 02/25/2023 LIPID PANEL triglyceride s 123 mg/dL 0-149 Not Available [facility] Department [address] [place] [address], [address], 02/25/2023 20:09:17 02/25/19 24 02/25/2023 LIPID PANEL HDL cholesterol 55 mg/dL 40-999 Not Available [facility] Department [address] [place] [address], [address], 02/25/2023 20:09:17 02/25/19 24 02/25/2023 LIPID PANEL VLDL cholesterol yuriy 25 mg/dL 5-40 Not Available [facility] Department [address] [place] [address], [address], 02/25/2023 20:09:17 02/25/19 24 02/25/2023 LIPID PANEL LDL chol calc (nih) 129 mg/dL 0-99 above high normal Not Available [facility] Department [address] [place] [address], [address], 02/25/2023 20:09:17 02/25/19 24 02/25/2023 COMP. METAB OLIC PANEL (14) glucose 102 mg/dL 70-99 above high normal Not Available [facility] Department [address] [place] [address], [address], 02/25/2023 20:09:18 02/25/19 24 02/25/2023 COMP. METAB OLIC PANEL (14) BUN 6 mg/dL 6-24 Not Available [facility] Department [address] [place] [address], [address], 02/25/2023 20:09:18 02/25/19 24 02/25/2023 COMP. METAB OLIC PANEL (14) creatinine 0.70 mg/dL 0.76-1 .27 below low normal Not Available [facility] Department [address] [place] [address], [address], 02/25/2023 20:09:18 02/25/19 24 02/25/2023 COMP. METAB OLIC PANEL (14) eGFR 107 >=60 Units for eGFR value s are mL/mi n/1.7 3 The eGFR Calcu latio n has not been valid ated for patie nts under the age of 18. If test resul ts are displ ayed for a patie nt under the age of 18, disre анна that value . Not Available [facility] Department [address] [place] [address], [address], 02/25/2023 20:09:18 02/25/19 24 02/25/2023 COMP. METAB OLIC PANEL (14) BUN/creatini ne ratio 9 9-23 Not Available [facility] Department [address] [place] [address], [address], 02/25/2023 20:09:18 02/25/19 24 02/25/2023 COMP. METAB OLIC PANEL (14) sodium 139 mmol/ L 134-14 4 Not Available [facility] Department [address] [place] [address], [address], 02/25/2023 20:09:18 02/25/19 24 02/25/2023 COMP. METAB OLIC PANEL (14) potassium 4.8 mmol/ L 3.5-5. 2 Not Available [facility] Department [address] [place] [address], [address], 02/25/2023 20:09:18 02/25/19 24 02/25/2023 COMP. METAB OLIC PANEL (14) chloride 106 mmol/ L 96-106 Not Available [facility] Department [address] [place] [address], [address], 02/25/2023 20:09:18 02/25/19 24 02/25/2023 COMP. METAB OLIC PANEL (14) carbon dioxide, total 24 mmol/ L 20-29 Not Available [facility] Department [address] [place] [address], [place], [address], 02/25/2023 20:09:18 02/25/19 24 02/25/2023 COMP. METAB OLIC PANEL (14) calcium 9.4 mg/dL 8.7-10 .2 Not Available [facility] Department [address] [place], [address], 02/25/2023 20:09:18 02/25/19 24 02/25/2023 COMP. METAB OLIC PANEL (14) protein, total 6.7 g/dL 6.0-8. 5 Not Available [facility] Department [address] [place], [address], 02/25/2023 20:09:18 02/25/19 24 02/25/2023 COMP. METAB OLIC PANEL (14) albumin 4.0 g/dL 3.9-4. 9 Not Available [facility] Department [address] [place], [address], 02/25/2023 20:09:18 02/25/19 24 02/25/2023 COMP. METAB OLIC PANEL (14) globulin, total 2.7 g/dL 1.5-4. 5 Not Available [facility] Department [address] [place], [address], 02/25/2023 20:09:18 02/25/19 24 02/25/2023 COMP. METAB OLIC PANEL (14) A/G ratio 2.0 1.2-2. 2 Not Available [facility] Department [address] [place], [address], 02/25/2023 20:09:18 02/25/19 24 02/25/2023 COMP. METAB OLIC PANEL (14) bilirubin, total 0.3 mg/dL 0.0-1. 2 Not Available [facility] Department [address] [place], [address], 02/25/2023 20:09:18 02/25/19 24 02/25/2023 COMP. METAB OLIC PANEL (14) alkaline phosphatase 129 IU/L 44-121 above high normal Not Available [facility] Department [address] [place] [address], [address], 02/25/2023 20:09:18 02/25/19 24 02/25/2023 COMP. METAB OLIC PANEL (14) AST (SGOT) 21 IU/L 0-40 Not Available [facility] Department [address] [place] [address], [address], 02/25/2023 20:09:18 02/25/19 24 02/25/2023 COMP. METAB OLIC PANEL (14) ALT (SGPT) 21 IU/L 0-32 Not Available [facility] Department [address] [place] [address], [address], 02/25/2023 20:09:18 02/25/19 24 02/25/2023 CBC, PLATE LET, NO DIFFE RENTI AL WBC 9.4 x10e3 /uL 3.4-10 .8 Not Available [facility] Department [address] [place] [address], [address], 02/25/2023 20:09:18 02/25/19 24 02/25/2023 CBC, PLATE LET, NO DIFFE RENTI AL RBC 4.71 x10e6 /uL 3.77-5 .28 Not Available [facility] Department [address] [place] [address], [address], 02/25/2023 20:09:18 02/25/19 24 02/25/2023 CBC, PLATE LET, NO DIFFE RENTI AL hemoglobin 12.4 g/dL 11.1-1 5.9 Not Available [facility] Department [address] [place] [address], [address], 02/25/2023 20:09:18 02/25/19 24 02/25/2023 CBC, PLATE LET, NO DIFFE RENTI AL hematocrit 40.0 % 34.0-4 6.6 Not Available [facility] Department [address] [place], [address], 02/25/2023 20:09:18 02/25/1902/25/2023 CBC, PLATE LET, NO DIFFE RENTI AL MCV 85 fL 79-97 Not Available [facility] Department [address] [place], [address], 02/25/2023 20:09:18 02/25/1902/25/2023 CBC, PLATE LET, NO DIFFE RENTI AL MCH 26.3 pg 26.6-3 3.0 below low normal Not Available [facility] Department [address] [place] [address], [address], 02/25/2023 20:09:18 02/25/1902/25/2023 CBC, PLATE LET, NO DIFFE RENTI AL MCHC 31.0 g/dL 31.5-3 5.7 below low normal Not Available [facility] Department [address] [place] [address], [address], 02/25/2023 20:09:18 02/25/1902/25/2023 CBC, PLATE LET, NO DIFFE RENTI AL RDW 14.7 % 11.5-1 4.5 above high normal Not Available [facility] Department [address] [place] [address], [address], 02/25/2023 20:09:18 02/25/1902/25/2023 CBC, PLATE LET, NO DIFFE RENTI AL platelets 380 x10e3 /uL 150-45 0 Mean Plate let Volum e 10.5 fL 8.9-1 2.7 N Not Available [facility] Department [address] [place] [address], [address], 02/25/2023 20:09:18 02/25/1902/25/2023 CBC, PLATE LET, NO DIFFE RENTI AL NRBC 0 % 0-0 Not Available [facility] Department [address] [place], [address], 02/25/2023 20:09:18 02/25/19 24 02/26/2023 VITAM IN [...] Endoc rine Socie ty went on to [facility] er defin e vitam in D insuf ficie ncy as a level betwe en 21 and 29 ng/mL (2). 1. IOM (Inst itute of Medic ine). 2010. Dieta ry refer ence intak es for calci um and D. Erendira jarvis [place]: [facility] . 2. Hernesto gary [place], Hallie lima [place], Kelsey off-[place] re[place] i BERGER, et al. Evalu ation , treat ment, and preve ntion of vitam in D defic iency : an Endoc rine Socie ty clini yuriy pract ice guide line. JCEM. 2010; 96(7) :1911 -30. Not Available [facility] ([facility]) [address] [facility], [place], [address], 02/26/2023 08:38:35 05/01/19 24 05/02/2023 VITAM IN B12 AND FOLAT E vitamin B12 616 pg/mL 232-12 45 Not Available [facility] ([facility]) [address] [facility], [place], [address], 05/02/2023 10:16:29 05/01/19 24 05/02/2023 VITAM IN B12 AND FOLAT E folate (folic acid), serum 3.1 NG/mL >3.0 A serum folat e alyson ntrat ion of less than 3.1 ng/mL is consi dered to repre sent clini yuriy defic iency . Not Available [facility] ([facility]) [address] [place], [address], 05/02/2023 10:16:29 05/01/19 24 05/02/2023 IRON AND TIBC iron bind.cap.(TI BC) 363 ug/dL 250-45 0 Not Available [facility] ([facility]) [address] [place], [address], 05/02/2023 10:16:30 05/01/19 24 05/02/2023 IRON AND TIBC UIBC 335 ug/dL 131-42 5 Not Available [facility] ([facility]) [address] [place], [address], 05/02/2023 10:16:30 05/01/19 24 05/02/2023 IRON AND TIBC iron 28 ug/dL 27-159 Not Available [facility] ([facility]) [address] [place], [address], 05/02/2023 10:16:30 05/01/19 24 05/02/2023 IRON AND TIBC iron saturation 8 % 15-55 alert low Not Available [facility] ([facility]) [address] [place], [address], 05/02/2023 10:16:30 05/01/19 24 05/02/2023 CAROLINA TIN ferritin 14 NG/mL 15-150 below low normal Not Available [facility] ([facility]) [address] [place], [address], 05/02/2023 10:16:31 Result Notes None recorded. Problems Name Problem SNOMED Code Status Onset Date Resolution Date Notes Provider Name and Address Organization Details Recorded Time Essential hypertensio n 30382553 Active 2023 Saul Arambula MD Attn: Kaci g,[address] [facility], [place], [address], [facility] 4 11:39:33 Morbid obesity 395313117 Active 2023 Saul Arambula MD Attn: Accountshea g,[address] [facility], [place], [address], [place] [facility] 4 11:39:48 Chronic back pain 629088818 Active 2023 Saul Arambula MD Attn: Kcai vera,[address] [facility], [place], [address], [place] [facility] 4 11:40:08 Chronic sciatica 809664063 Active 2023 Saul Arambula MD Attn: Accountshea g,[address] [facility], [place], [address], [place] [facility] 4 11:40:31 Feeling stressed 988463381 Active 2023 Saul Arambula MD Attn: Ramanshea vera,[address] [facility], [place], [address], [place] [facility] 4 11:40:46 Blurring of visual image 334811361 Active 2023 Fine print Saul Arambula MD Attn: Ramanshea g,[address] [facility], [place], [address], [place] [facility] 4 11:41:09 Pain of left knee region 9240040553818 09 Active 2023 Saul Arambula MD Attn: Ramanshea vera,[address] [facility], [place], [address], [place] [facility] 4 11:43:10 Thickened nails 139208961 Active 2023 Saul Arambula MD Attn: Ramanshea g,[address] [facility], [place], [address], [place] [facility] 4 11:45:46 Allergy to tramadol 802418057 Active 2023 Saul Arambula MD Attn: Kaci g,[address] [facility], [place], [address], [place] [facility] 4 11:46:07 Adult health examination Active 2023 Saul Arambula MD Attn: Kaci vera,[address] [facility], [place], [address], [place] [facility] 4 11:57:08 Family history of cancer of colon 022931952 Active 2023 Saul Arambula MD Attn: Kaci vera,[address] [facility], [place], [address], [place] [facility] 4 12:00:17 Vitamin D deficiency 03985120 Active 2023 Saul Arambula MD Attn: Kaci vera,[address] [facility], [place], [address], [place] [facility] 4 07:07:43 Blood substance level below reference range 134022138 Active 2023 Saul Arambula MD Attn: Kaci vera,[address] [facility], [place], [address], [place] [facility] 4 07:09:08 Iron deficiency anemia 56503336 Active 2023 Saul Arambula MD Attn: Kaci vera,[address] [facility], [place], [address], [place] [facility] 4 19:20:51 Problem Notes None recorded. Medical Equipment None Reported. Allergies Allergen ID Allergen Name Allergen Category Reaction Reaction Severity Criticality Documentation Date Start Date Code Code System Note Provider Name and Address Organization Details Recorded Time 716740 amoxicill in medicatio n Not available Not available Not available 02/25/2023 723 RxNorm Deya Arreola [place] null, [place] [facility] 4 11:11:31 242418 tramadol medicatio n hallucina tions moderate low 02/25/2023 79713 RxNorm Saul Arambula MD Attn: Kaci vera,[address] [facility], [place], [address], [place] [facility] 4 11:48:27 Medications [...] Address Organization Details Last Updated DateTime 4 081863. 61 g 40.2 kg/m2 162.56 cm 98 [degF] 98 % 98 % 78 /min 136 mm[Hg] 82 mm[Hg] Deya Arreola MA [facility] 11:12:40 Social History Question Answer Notes LastModified by [employer] Details LastModified Time Tobacco Smoking Status Former Smoker Saul Arambula MD Attn: Accounting,[address] [place], [address], [facility] 02/25/2023 11:27:08 What Was The Date Of Your Most Recent Tobacco Screening? 02/25/2023 Information not available 02/25/2023 At What Age Did You Start Smoking Tobacco? 17 Information not available 02/25/2023 Has Tobacco Cessation Counseling Been Provided? No Information not available 02/25/2023 How Many Years Have You Smoked Tobacco? 7 [email or web address] Information not available 02/25/2023 Sex: Unknown Functional Status Question Answer Note LastModified by [employer] Details LastModified Time Do you or have you ever used any other forms of tobacco or nicotine? No Information not available 02/25/2023 What is your level of alcohol consumption? Occasional [email or web address] Information not available 02/25/2023 Mental Status None recorded. Family History Nothing Reported. Medical History Condition Response High Blood Pressure Y Gynecological HistoryNo gynecological history recorded. Obstetrics History GPAL:G 0 P 0 0 0 0 Past Encounters Encounter ID Performer Location Encounter Start Date Encounter Closed Date Diagnosis/Indication Diagnosis SNOMED-CT Code Diagnosis ICD10 Code Diagnosis Note [id number] Saul Arambula MD [facility] (Adult Med) [address] [place] [address] 02/25/2023 10:50:39 03/04/2023 15:54:07 Pain of left knee region 6603617409 61624 M25.562 Essential hypertension 52248482 I10 Feeling stressed 4957457 06 Z73.3 Morbid obesity 471980915 E66.01 Chronic sciatica 8704697 01 M54.31 Get recent films Chronic back pain 579399 002 G89.29 Get recent films Blurring o f visual image 625392749 H53.8 Will see her ophthalmol ogist Thickened nails 07524314 5 Q84.5 Adult heal th examination 328570590 Z00.00 Family his tory of cancer of colon 969498199 Z80.0 Health Concerns Section Related Observation LastModified by Organization Detai ls LastModified Time None Recorded Concern Status LastModified by Organization Details LastModified Time None Recorded Advance Directives Directive None Recorded Payers Insurance Date Sequence Insurance Name Policy Number Policy Martin Covered Member ID Martin Member ID Guarantor Name 07/18/2023 1 [facility] ON OR AFTER 08/16/20 (MEDICAID REPLACEMENT - HMO) Tess Nicolas [id number] Tess Nicolas 02/26/2023 1 *SELF PAY* cheryle Nicolas Notes Date Note Type Note Provider Name and Address Organization Details Recorded Time 02/25/2023 text/html Pt switching PCP. Saul Arambula MD Attn: Accounting,[address] [place], [address], [facility] 02/25/2023 12:03:58 OBGyn Episode No OBEpisode recorded.
--- OUTSIDE RECORDS SUMMARY | 2024-08-05 00:49 | XMS_ITS | Data Portability ---
Author Organization [facility] [place] Address [address] [place] [address] Care Team Providers Care Abstract Writer Name Role Phone CECILIA BANDA MD Primary Care Provider Assessment No assessment recorded. Plan of Treatment Reminders Order Date Submit Date Provider Last Modified By Organization Details Last Modified Time Details Appointments Robotic TLH 2024 10:30A Gisselle YING MD Not available Not available Not available SURG POST OP 2024 03:00P Gisselle YING MD Not available Not available Not available Lab None recorded. Referral None recorded. Procedures None recorded. Surgeries robotic assisted hysterect kim with salpingec nile (SURG) 2024 025 [id number] [facility], [address] [place] [address], [address], 08/04/2024 10:06:39 total hysterect kim, laparosco pic, with bilateral salpingec nile (SURG) 2022 023 [email or web address] [facility], [facility] [address], [address], 12/15/2022 20:04:57 Imaging None recorded. Medication Orders None recorded. Patient TargetsNo targets recorded. Patient InstructionsNo instructions recorded. Reason for Referral None Reported. Results Created Date Observation Date Name Description Value Unit Range Abnormal Flag Note LastModifiedBy Organization Detail LastModifiedTime 07/18/19 23 07/17/2022 CT/GC AND TRICH OMONA S VAGIN ANA MARÍA (RRNA ), URINE chlamydia trachomatis, PCR Negati ve negati ve Not Available [facility] (Lab) [address] [facility], [place], [address], 07/18/2022 16:34:00 07/18/19 23 07/17/2022 CT/GC AND TRICH OMONA S VAGIN ANA MARÍA (RRNA ), URINE neisseria gonorrhoeae, PCR Negati ve negati ve Not Available [facility] (Lab) [address] [facility], [place], [address], 07/18/2022 16:34:00 07/18/19 23 07/17/2022 CT/GC AND TRICH OMONA S VAGIN ANA MARÍA (RRNA ), URINE trichomonas vaginalis ribosomal RNA (rrna) Negati ve negati ve Not Available [facility] (Lab) [address] [facility], [place], [address], 07/18/2022 16:34:00 07/25/19 23 07/24/2022 SURGI YURIY PATHO LOGY surgical pathology SEE RESULT S BELOW CASE REPOR T: Surgi yuriy Patho logy Repor t Case: CDS Autho stefany vera Provi ioana: Thelma Ying [...] label ed with the patie nt's name, kamryn vance cs ECC . Recei ana maria in forma keren is a 2.0 x 2.0 x 0.2 cm aggre gate of rivera-b rown tissu e mixed with mucoi d mater ial and blood clot. The entir e speci men is submi tted in one casse tte. Gross ed by [employer] Not Available [facility] (Lab) [address], [place], [address], 07/25/2022 14:17:43 10/22/19 23 05/23/2022 MAMMO , diagn ostic , digit al, bilat eral No observ ation record ed. [address], [place], [address], 10/24/2022 15:44:53 Result Notes None recorded. Procedures Surgical History Date Name Laterality Status Provider Name and Address Organization Details Recorded Time 07/25/19 23 Colposcopy completed Reddy Ying MD [address], [place], [address], [facility] 07/24/2022 20:42:58 07/25/19 23 [facility] 07/24/2022 16:46:39 07/19/19 23 Colposcopy completed Isabel Ty [facility] 05/04/2024 16:06:24 03/20/19 23 Date of Last Pap Smear completed Yolanda Rodriguez [facility] 07/23/2022 14:31:05 02/16/19 20 Endometrial Ablation completed Isabel Ty [facility] 05/04/2024 16:07:48 Tubal Ligation completed [facility] 07/24/2022 16:46:49 Appendectomy completed [facility] 07/24/2022 16:46:56 Imaging Results None recorded. Procedure Notes None recorded. Medical Equipment None Reported. Allergies Allergen ID Allergen Name Allergen Category Reaction Reaction Severity Criticality Documentation Date Start Date Code Code System Note Provider Name and Address Organization Details Recorded Time tramadol medicatio n Not available Not available Not available 06/05/2022 09468 RxNorm [facility]i [facility] 15:30:34 Medications Name Sig Start Date [...] Updated DateTime 05/04/2024 162.56 cm 39.5 kg/m2 266979.2 5 g 145 mm[Hg] 82 mm[Hg] Isabel Karson [facility] 5 16:02:54 Date Recorded Body height Body mass index (BMI) Body weight Systolic blood pressure Diastolic blood pressure Provider Name and Address Organization Details Last Updated DateTime 07/17/2022 162.56 cm 41 kg/m2 483898.5 8 g 146 mm[Hg] 96 mm[Hg] Sarah Lakshmi [facility] 3 14:55:15 Date Recorded Body height Body mass index (BMI) Body weight Systolic blood pressure Diastolic blood pressure Provider Name and Address Organization Details Last Updated DateTime 07/24/2022 162.56 cm 40.7 kg/m2 081252.3 9 g 164 mm[Hg] 103 mm[Hg] Yolanda [facility] 3 15:32:22 Date Recorded Body height Body mass index (BMI) Body weight Systolic blood pressure Diastolic blood pressure Provider Name and Address Organization Details Last Updated DateTime 08/03/2024 162.56 cm 39.2 kg/m2 821608.7 8 g 156 mm[Hg] 98 mm[Hg] Sagrario Perez [facility] 5 18:15:20 Date Recorded Body height Body mass index (BMI) Body weight Systolic blood pressure Diastolic blood pressure Provider Name and Address Organization Details Last Updated DateTime 11/07/2022 162.56 cm 40.5 kg/m2 954192.8 g 164 mm[Hg] 96 mm[Hg] Yolanda [facility] 3 14:43:40 Social History Question Answer Notes LastModified by Organizat ion Details LastModified Time Tobacco Smoking Status Never Smoker Dianne lerma, [facility] 03/20/2022 11:35:47 Are You Blind Or Do You Have Difficulty Seeing? No Information n ot available 03/20/2022 In The 14 Days Before Symptom Onset, Have You Had Close Contact With A Laboratory-confirm ed COVID-19 While That Case Was Ill? No [email or web address] Information n ot available 07/17/2022 In The 14 Days Before Symptom Onset, Have You Had Close Contact With A Person Who Is Under Investigation For COVID-19 While That Person Was Ill? No [email or web address] Information not available 07/17/2022 Have You Been To An Area Known To Be High Risk For COVID-19? No [email or web address] Information not available 07/17/2022 Are You Deaf Or Do You Have Serious Difficulty Hearing? No Information not available 03/20/2022 What Type Of Diet Are You Following? REGULAR Information n ot available 03/20/2022 Do You Have Difficulty Walking Or Climbing Stairs? No Information not available 03/20/2022 Sex: Unknown Functional Status Question Answer Note LastModified by Organizat ion Details LastModified Time What is your [...] 11:35:01 Mother Essential hypertension [email or web address] Not available 0 03/20/2022 11:35:10 Medical History Condition Response Allergies (Food, seasonal, environmental ) N Other N Drug/Latex Allergies/Reactions N Blood Transfusion N Breast Cancer N Dermatologic Disorders N Lung Disease N Defects or Inherited Disease N Breast Problem N Gestational Diabetes N Hematologic disorders N Anesthesia Complications N History of STI Y Deep Vein Thrombosis N Polycystic ovary syndrome N Anxiety Disorder N Autoimmune disease N Arthritis N Polyps N Infertility N Acid Reflux (GERD) N History of abnormal pap Y Cancer N Varicosities N Stroke N Neurologic/Epilepsy N Endometriosis N High Cholesterol N Fibromyalgia N Headaches N Kidney Disease N Heart Problems N Thyroid Problems N Kidney or Bladder Problems N GI Problems N Eating Disorder [...] SNOMED-CT Code Diagnosis ICD10 Code Diagnosis Note [id number] KATHY Booker [place] [address] [address] 03/20/2022 11:05:14 03/20/2022 15:14:03 Breast lump 73354112 N63.0 Abnormal u terine bleeding 8625371238 9100 N93.9 Skin tag 285549066 L91.8 Irregular bowel habits 549511275 R19.4 Hemorrhoids 73198287 K64 .9 Gynecologi c examination 50999873 Z01.419 Suggested Calcium with Vitamin D 1200-1500m g daily. Patient advised to get an annual flu shot in the fall and she could obtain at [facility] or [facility] clinic. Also to obtain TDap vaccinatio n [...] please call or respond to this email. [facility] n 2018. Periods continue to be heavy, no change [...] 3 months ago per patient. Breast imaging ordered.Aptidata testing discussedB P elevated. States she is [...] counseling and review of plan of care. [id number] Reddy Ying MD [place] [address] [address] 04/15/2022 14:09:30 04/15/2022 15:37:50 Abnormal uterine bleeding 0165327475 9100 N93.9 [id number] Reddy Ying MD [place] [address] [address] 04/23/2022 15:36:47 04/23/2022 16:44:20 Infection by Trichomonas 21463814 A59.9 Menorrhagia 156124869 N9 2.0 Uterine leiomyoma 246727 05 D25.9 this patient is a 46-year-ol [...] She will return for test of cure. [id number] Bharati Hare CLAIRE [place] [address],[place] [address] 06/02/2022 14:55:00 06/02/2022 16:04:47 Infection by Trichomonas 33282291 A59.9 SHELLEY GC/CT/Tric h sentcondom use encouraged [...] plan of care. Venereal d isease screening 736964724 Z11.3 [id number] KATHY Booker [place] [address],[place] [address] 07/17/2022 14:46:37 07/17/2022 15:29:41 Infection by Trichomonas 04215096 A59.9 SHELLEY sentcondom use encouraged has colpo scheduled - encouraged to attend this appointmen t Time spent in visit is a total of 15 mins with at least 50% of visit consisting of counseling and review of plan of care. BP precaution s discussed, she is following with PCP Venereal d isease screening 223097653 Z11.3 [id number] Reddy Ying MD [place] [address] [address] 07/24/2022 15:18:35 07/25/2022 13:30:23 Abnormal cervical Papanicolaou smear 651878872 R87.619 colposcopy was performed. It was unsatisfac tory exam. Aceto-whit e epithelium peeled to be at the central portion of the cervix the external os. It was well sampled with endocervic al curettage. [id number] Reddy Ying MD [place] [address] [address] 11/07/2022 14:29:06 11/07/2022 15:19:25 Menorrhagia 512664191 N92.0 This patient is a 46-year-ol d [...] discussed the etiology, natural history, Uterine leiomyoma 162247 05 D25.9 [id number] Reddy Ying MD [place] [address] [address] 05/04/2024 15:33:44 05/04/2024 16:35:03 Menorrhagia 038619833 N92.0 This patient is a 48-year-ol d [...] see Dr. La. We will make referral. [id number] Reddy Ying MD [place] [address] [address] 08/03/2024 17:17:28 08/04/2024 22:34:51 Menorrhagia 167641671 N92.0 48-year-ol d female with severe menorrhagi a. We have agreed to perform robotic assisted hysterecto my with bilateral salpingo-o ophorectom y. She understand s the risks, benefits, and alternativ es. She has completed the informed consent process and is ready to proceed. Health Concerns Section Related Observation LastModified by Organization Detai ls LastModified Time None Recorded Concern Status LastModified by Organization Details LastModified Time None Recorded Advance Directives Directive None Recorded Payers Insurance Date Sequence Insurance Name Policy Number Policy Martin Covered Member ID Martin Member ID Guarantor Name 08/02/2024 1 [employer] [id number] Tess Welmon [id number] Tess Welmon 07/06/2024 2 [place] [employer] Tess Welmon [id number] Tess Welmon 07/06/2024 2 [facility] - DOS ON OR AFTER 20 (MEDICAID REPLACEMENT - HMO) Tess Welmon [id number] Tess Welmon 08/04/2024 2 [place] Tess Welmon [id number] Tess Welmon 07/06/2024 2 [facility] (MEDICAID HMO) Tess Welmon [id number] Tess Welmon 05/04/2024 1 [facility] - DOS ON OR AFTER 20 (MEDICAID REPLACEMENT - HMO) Tess Welmon [id number] Tess Arzatefidencio Notes Date Note Type Note Provider Name and Address Organization Details Recorded Time 07/17/2022 text/html 46yopresents for TOCcompleted treatment, no longer with partnerno vaginal d/c, odors, itching KATHY Booker [address], [place], [address], [facility] 07/17/2022 15:27:55 07/24/2022 text/html 46-year-old karli ding who presents for colposcopy. Reddy Ying MD [address], [place], [address], [facility] 07/24/2022 20:45:01 11/07/2022 text/html This [...] hysterectomy bilateral salpingo-oophorecto my. Spent 40 minutes [id number]. I explained the procedure in detail. More than 50% was counseling. We agreed to proceed with surgery. patient has 1 very large uterine fibroid. We discussed myomas. We discussed the etiology, natural history, Reddy Ying MD [address], [place], [address], [facility] 11/07/2022 15:18:48 05/04/2024 text/html This [...] total. Reddy Ying MD [address], [place], [address], [facility] 05/04/2024 16:32:26 08/03/2024 text/html 48-year-old fema le with severe menorrhagia. We have agreed to perform robotic assisted hysterectomy with bilateral salpingo-oophorecto my. She understands the risks, benefits, and alternatives. She has completed the informed consent process and is ready to proceed. The patient understands the procedure. The procedure was described to the patient in great detail. the patient also understands the risks. The risks were also explained in detail. She understands that injuries May occur during surgery. She understands these injuries can result in hospitalization, more surgery, and severe illness. She understands there is risk of hemorrhage and infection. Reddy Ying MD [address], [place], [address], [facility] 08/04/2024 22:34:49 OBGyn Episode Ob Episode Information Episode Created Date Number of Fetuses Patient Bloodtype Patient rh Status Prepregnancy Weight lbs Domestic Partner Domestic Partner Phone Father Name Welder/Fitter Status 03/20/19 23 1 CLOSED Fetus Data First Name Last Name Admitted to NICU Weight (g) Sex Living Outcome Pediatric Complications Fetus ID Race Codes Race Delivery Type 20315 Vaginal Delivery Kings Calculation Initial Kings Date [...] Domestic Partner Domestic Partner Phone Father Name Welder/Fitter Status 03/20/19 1 CLOSED Fetus Data First Name Last Name Admitted to NICU Weight (g) Sex Living Outcome Pediatric Complications Fetus ID Race Codes Race Delivery Type 17637 Vaginal Delivery Kings Calculation Initial Kings Date [...] Domestic Partner Domestic Partner Phone Father Name Welder/Fitter Status 03/20/19 1 CLOSED Fetus Data First Name Last Name Admitted to NICU Weight (g) Sex Living Outcome Pediatric Complications Fetus ID Race Codes Race Delivery Type 21319 Vaginal Delivery Kings Calculation Initial Kings Date [...] Domestic Partner Domestic Partner Phone Father Name Welder/Fitter Status 02/02/20 23 1 CLOSED Fetus Data First Name Last Name Admitted to NICU Weight (g) Sex Living Outcome Pediatric Complications Fetus ID Race Codes Race Delivery Type 73013 Vaginal Delivery Kings Calculation Initial Kings Date [...] Domestic Partner Domestic Partner Phone Father Name Welder/Fitter Status 03/20/19 1 CLOSED Fetus Data First Name Last Name Admitted to NICU Weight (g) Sex Living Outcome Pediatric Complications Fetus ID Race Codes Race Delivery Type 83483 Vaginal Delivery Kings Calculation Initial Kings Date [...]
--- NOTE | 2024-08-05 09:15 | WPDHPUPDATE1 ---
History and Physical Update Update Date/Time: 08/05/24 09:15 History and Physical has been reviewed, including an updated exam of the patient. There are NO changes in the patient's condition. Risks, benefits, and alternatives have been discussed and questions answered. Patient agrees to proceed with procedure.
[2024-08-05] MEDS: KETOROLAC 15 MG/ML VIAL (*BKC) IV PUSH (09:45)
[2024-08-05] MEDS: ACETAMINOPHEN 500 MG TABLET 1000 MG PO ×2 (09:45→15:24)
[2024-08-05] MEDS: LACTATED RINGERS 1,000 ML 30 ML IV CONT ×2 (09:45→13:00)
--- NOTE | 2024-08-05 10:04 | P.PNAN_ITS ---
Anes - Initial Pre Proc Eval Procedure: Operation Date: 08/05/24 10:30 Proposed Procedures p Robotic Assisted Hysterectomy with Bilateral Salpingectomy - Reddy Ying MD Date/Time: 08/05/24 10:04 Surgeon: Reddy Ying MD Pre Op Diagnosis: Menorrhagia Patient Data Age: 48 Gender: F Height: 1.64 m Weight: 127.3 kg Allergies Allergy/AdvReac Type Severity Reaction Status Date / Time No Known Allergies Allergy Verified 08/02/24 14:05 Home Medications ?Medication ?Instructions ?Recorded ?Confirmed ?Type No Home Medications 08/02/24 08/02/24 History Patient hx anesthesia problems: post op nausea/vomiting Family hx anesthesia problems: none Results Review: All pre-operative results and documents have been reviewed as part of the pre- operative evaluation. [facility] Past Medical History Medical History History of endometrial biopsy (05/25/19) Hypertension Polycystic ovarian syndrome Anxiety HPV in female Abnormal Pap smear of cervix 07/15/2018 lgsil +hpv Surgical History Surgical History History of ventral hernia repair (03/13/20) incarcerated epigastric ventral hernia repair with mesh History of ovarian cystectomy History of laparoscopy (05/19/02) 05/19/02 hscope d&c/dx lscope/chromopertubation--infertility History of dilation and curettage (05/19/02) 05/19/02 hscope d&c/dx lscope/chromopertubation--infertility History of colposcopy with cervical biopsy 08/04/18 LGSIL ANDREA 1 History of tubal ligation (09/07/12) History of cholecystectomy (~2007) History of appendectomy (~2005) Family History Family History Mother Diabetes mellitus Hypertension Depressive disorder Daughter Depressive disorder Father Carcinoma of colon Social History Social History Years smoked: 5 Smoking status: Former smoker Tobacco type: cigarettes Smoking end date: 08/02/05 Do You Feel Safe in your Home?: Yes Lack of Transportation: YES Lack of Food: Sometimes True Current Housing: I Have Housing Concerned About Future Housing: No Difficulty Paying Gas/Electric Bills: No Difficulty Paying for Meds: YES Currently Unemployed: No Education: Decline to Answer Difficulty w/ Childcare or Family Care: No Living arrangements: with family Spiritual care concerns: No Anes - Eval Final PreProcedure Day of Procedure 08/05/24 10:04 Patient weight: morbidly obese Heart: regular rate and rhythm Lungs: clear to auscultation Airway: Mallampati scale class II Neurological: alert and oriented Last oral intake: >/= 8 hours ASA classification: III Emergent: no Anesthetic plan: proceed Anesthesia type and monitoring: general ETT and standard monitoring Results Review: All pre-operative results and documents have been reviewed as part of the pre- operative evaluation. Informed Consent: The patient's anesthetic plan and its attendant risks and benefits were discussed with the patient/family/POA. Questions were solicited and answers provided to the satisfaction of the patient/family/POA.
[2024-08-05] MEDS: ceFAZolin 2 GM/D5W 50 ML 2 GM/50 ML BAG IVPB (10:06)
[2024-08-05] MEDS: ceFAZolin SODIUM 1 GM VIAL (10:57)
[2024-08-05] MEDS: ceFAZolin SODIUM 1 GM VIAL IV PUSH (10:58)
--- NOTE | 2024-08-05 11:55 | S_PTH ---
PATIENT: Tess Nicolas LOC: [facility] U#:[id number] AGE/SX: 48/F ROOM: RE08/05/[address]: Reddy Ying MD : 1975 BED: DIS: 08/06/2024 SPEC #: [id number] RECD: 08/05/24 13:29 STATUS: KVNG RETate #: [id number] DAYNE: 08/05/24 11:[address]: Reddy Ying DEPT: [facility] Surgical RECD BY: Treva Mas ENTERED: 08/05/24 13:30 SP TYPE: Surgical OTHR DR: Hardy CejaMD Tissues: A - Uterus Procedures: Hematoxylin and Eosin Stain Gross and Microscopic Level 5
[2024-08-05] MEDS: METHYLENE BLUE 0.5% INJ 10 ML AMPULE IRRIGATION (12:24)
--- NOTE | 2024-08-05 13:14 | P.OP_ITS ---
Procedure Note - Detailed Date of Procedure 08/05/24 Pre-op Diagnosis Menorrhagia Post-op Diagnosis Same Procedure Performed Robot assisted Total hysterectomy with bilateral salpingectomy. Surgeon Reddy Ying MD Anesthesia General Indications heavy vaginal bleeding, pelvic pain Findings Large fibroid uterus, normal-appearing ovaries fallopian tubes. Description of Procedure This patient was taken to the operating room. She was prepped and draped in the dorsal lithotomy position after induction of general anesthesia. The uterine manipulator and Shantell cup were placed. This was done with a speculum and tenaculum. The speculum was placed. The cervix was grasped with a tenaculum. The stay sutures were placed at 3 and 9:00 a.m.. The stay sutures of 0 Vicryl were tied to the appropriately Size scope after it was slipped around the cervix.. The tip of the FLOYD manipulator was placed in the intrauterine cavity. The cup was slid into place around the cervix and into the fornices. It was locked into place. The sutures were then wrapped around the handle and tied under tension. A 8 mm skin incision was made in the left upper quadrant the abdomen. a 5 mm Visiport trocar was inserted into abdominal cavity and pneumoperitoneum was achieved. A 8 mm supraumbilical incision was made and a 8 mm trocar was inserted into the intrauterine cavity under direct visualization of the scope. an 8 mm incision was made in the right upper quadrant of the abdomen and an 8 mm robotic trocar was placed the inter uterine cavity under direct visualization the scope. An 11 mm trocar was inserted in the right upper quadrant of the abdomen rectal is a cystoscope after an incision was made there as well. The robot was docked. Electronic Orientation of the robot was performed. Bilateral ureteral lysis was performed. This was done from the pelvic brim down to the uterine artery. This was done with careful dissection using sharp and blunt dissection. The fallopian tubes were removed bilaterally. The mesosalpinx around the fallopian tubes were cauterized transected with LigaSure cautery. This was done in a bilateral fashion from the ovary to the uterine cornua. The fallopian tube was transected at the uterine cornu and amputated. The tube was taken out the left lower quadrant trocar site. In a stepwise fashion along the lateral aspects of the uterus the round ligament and broad li gaments were cauterized transected down to the level of the uterine arteries. A bladder flap was created in the bladder was moved distally to the end of the cervix and over the Shantell cup. The bilateral uterine arteries were cauterized and transected. Colpotomy was then performed. In a circumferential fashion the vagina was transected using unipolar cautery. The incision was made down on the Shantell cup. The uterus and cervix were taken out through the vagina. A pneumo occluder was placed in the vagina. The vaginal cuff was closed with a 0 V lock suture in a running fashion. The pelvis was irrigated with copious amounts antibiotic irrigation. The ureters were again examined and found to be intact and flowing freely under the uterine arteries into the bladder. The bladder was intact. It was examined directly. Cystoscopy was performed after administration of methylene blue. The cystoscope was inserted. Bladder was distended with fluid. The ureteric meatus was observed bilaterally. Blue fluid was seen to egress bilaterally. The bladder was drained and the cystoscope was withdrawn. The vagina was irrigated with Betadine solution after removal of the Pneumo occluder. the trocars were removed after the robot was undocked. The skin was closed with subacute or Dermabond. The patient was taken to recovery room. She was stable condition. Sponge lap and needle counts were correct x2. Estimated Blood Loss 125 Urine Output 800 Drains Yes Packing No Pathology Yes Complications No immediate complications Condition Stable Disposition Floor
[2024-08-05] MEDS: HYDROmorphone HCL INJ (*CRX) 1 MG/ML SYR 0.5 MG IV PUSH (14:00)
--- NOTE | 2024-08-05 14:38 | PC.NURSE ---
This patient, Tess Nicolas, was received from PACU on 08/05/24 at 1438. Patient/family oriented to unit policies and routines
[2024-08-05] MEDS: DEXTROSE 5%/0.45% SOD CHL 1,000 ML 125 ML IV CONT (15:20)
[2024-08-05] MEDS: KETOROLAC 30 MG/ML VIAL (*BKC) IV PUSH (15:21)
[2024-08-05] MEDS: SIMETHICONE 80 MG TAB.CHEW PO (15:23)
[2024-08-05] MEDS: DOCUSATE SODIUM 100 MG CAPSULE PO (17:27)
[2024-08-05] MEDS: ONDANSETRON INJ 4 MG/2 ML VIAL IV PUSH (17:27)
--- NOTE | 2024-08-05 20:42 | PC.NURSE ---
2004 - Patient on toilet complaining that she feels as though she has to have a bowel movement but it wont come out. This RN educated the patient on anesthesia and gas pain. Patient states that she takes flexeril at home to have bowel movements. She requested this RN contact the doctor for muscle relaxers. 2023 - This RN contacted Dr. Ying and informed him that the patient is requesting muscle relaxers for help with bowel movements. Dr. Ying ordered 10 mg of flexeril.
[2024-08-06] VITALS: BP 143/82; PULSE 60; RESP 20; TEMP 36.5; O2SAT 98
[2024-08-06] MEDS: KETOROLAC 30 MG/ML VIAL (*BKC) IV PUSH ×2 (00:05→05:10)
[2024-08-06] MEDS: ACETAMINOPHEN 500 MG TABLET 1000 MG PO ×3 (00:05→10:57)
[2024-08-06] MEDS: CYCLOBENZAPRINE HCL 10 MG TABLET PO (00:05)
[2024-08-06 04:24] VITALS: BP 127/64; PULSE 80; RESP 20; TEMP 37.6; O2SAT 97
[2024-08-06] MEDS: DOCUSATE SODIUM 100 MG CAPSULE PO (07:35)
[2024-08-06] MEDS: SIMETHICONE 80 MG TAB.CHEW PO ×2 (07:35→11:52)
[2024-08-06 07:52] VITALS: BP 138/87; PULSE 83; RESP 19; TEMP 36.4; O2SAT 100
[2024-08-06] MEDS: IBUPROFEN 600 MG TABLET PO (10:57)
--- NOTE | 2024-08-06 11:33 | P.PNOB_ITS ---
THEATRICAL PERFORMER - A/P Postoperative Procedures: Procedures Operation Date: 08/05/24 10:30 Actual Procedure Side Surgeon p Robotic Assisted Hysterectomy with Bilateral Salpingectomy Bilateral Reddy Ying MD Postoperative day: 1 Postoperative status: doing well Postoperative plan: see orders Time Spent With Patient Time: Total time spent is greater than 50% in coordination of care (as documented) at patient's floor/unit and/or counseling patient: Time with patient: less than 15 minutes THEATRICAL PERFORMER- PN:Subj Post-Op Subjective Date/time seen: 08/06/24 11:33 Subjective: patient reports feeling better, patient has no complaints and pain is well controlled Exam Const: General: healthy appearing, comfortable and no acute distress Resp: Auscultation: clear to auscultation bilaterally, no rales, no rhonchi and no wheezes Cardio: Rate: regular rate Heart sounds: no click, no murmurs and no rubs GI: Inspection: non-distended Auscultation: normal bowel sounds Extrem: General: normal to inspection, no pedal edema and no calf tenderness THEATRICAL PERFORMER - PN: Obj Data Vital Signs Vital Signs: Vital Signs - 24 hr 08/05/24 13:00 08/05/24 13:15 08/05/24 13:15 Temperature 97.8 F Pulse Rate 67 71 65 Respiratory Rate 11 L 14 14 Blood Pressure 122/74 136/73 154/81 H Pulse Oximetry 98 99 99 Oxygen Delivery Simple Face Mask Simple Face Mask Simple Face Mask Oxygen Flow Rate 8 8 6 08/05/24 13:30 08/05/24 13:45 08/05/24 13:55 Temperature Pulse Rate 67 62 63 Respiratory Rate 16 9 L 15 Blood Pressure 155/85 H 154/80 H 160/80 H Pulse Oximetry 94 97 95 Oxygen Delivery Room Air Nasal Cannula Oxygen Flow Rate 2 08/05/24 14:11 08/05/24 14:25 08/05/24 15:00 Temperature 97.1 F L Pulse Rate 59 L 59 L 56 L Respiratory Rate 12 12 18 Blood Pressure 136/84 152/88 H 144/76 H Pulse Oximetry 93 96 98 Oxygen Delivery Room Air Nasal Cannula Oxygen Flow Rate 2 08/05/24 19:54 08/05/24 19:55 08/06/24 00:00 Temperature 98.1 F 97.7 F Pulse Rate 75 60 Respiratory Rate 16 20 Blood Pressure 129/68 143/82 H Pulse Oximetry 99 98 Oxygen Delivery Room Air Oxygen Flow Rate 08/06/24 00:00 08/06/24 04:24 08/06/24 04:24 Temperature 99.6 F Pulse Rate 80 Respiratory Rate 20 Blood Pressure 127/64 Pulse Oximetry 97 Oxygen Delivery Room Air Room Air Oxygen Flow Rate 08/06/24 07:52 Temperature 97.5 F L Pulse Rate 83 Respiratory Rate 19 Blood Pressure 138/87 Pulse Oximetry 100 Oxygen Delivery Oxygen Flow Rate Intake/Output Intake/Output: Intake & Output 08/03/24 08/04/24 08/05/24 08/06/24 23:59 23:59 23:59 23:59 Intake Total 500 240 Output Total 800 2000 Balance -300 -1540 Meds/Results Medications: Active Medications Generic Name Dose Route Start Last Admin Trade Name Freq PRN Reason Stop Dose Admin Acetaminophen 1,000 mg 08/05/24 18:00 08/06/24 10:57 Acetaminophen 500 Mg Tablet PO 1,000 mg Q6HR KARLA Administration Docusate Sodium 100 mg 08/05/24 17:00 08/06/24 07:35 Docusate Sodium 100 Mg Capsule PO 100 mg BID KARLA Administration Dextrose/Sodium Chloride 1,000 mls @ 125 mls/hr 08/05/24 14:32 08/06/24 06:48 Dextrose 5% Sodium Chloride 0.45% IV CONT Not Given .Q8H KARLA Ibuprofen 600 mg 08/06/24 12:00 08/06/24 10:57 Ibuprofen 600 Mg Tablet PO 600 mg Q6HR KARLA Administration Naloxone HCl 0.1 mg 08/05/24 14:32 Naloxone Hcl 0.4 Mg/Ml Vial IV PUSH Q2M PRN Respiratory rate less than 10 Ondansetron HCl 4 mg 08/05/24 14:32 08/05/24 17:27 Ondansetron Inj 4 Mg/2 Ml Vial IV PUSH 4 mg Q6H PRN Administration Nausea And Vomiting Oxycodone HCl 5 mg 08/05/24 14:32 Oxycodone Hcl (*Crx) 5 Mg Tab Ir PO Q4H PRN Pain Rated 4-6 Oxycodone HCl 10 mg 08/05/24 14:32 Oxycodone Hcl (*Crx) 5 Mg Tab Ir PO Q6H PRN Pain Rated 7-10 Simethicone 80 mg 08/05/24 17:00 08/06/24 07:35 Simethicone 80 Mg Tab.Chew PO 80 mg TIDWM KARLA Administration
[2024-08-06 11:53] VITALS: BP 114/52; PULSE 78; RESP 16; TEMP 36.6; O2SAT 100
== END 2024-08-06 15:11 | disposition home or self-care (01) ==
LOC: ANHSURGERY 08:24 → ANHOB2 14:40
PROVIDERS: PCP Internal Medicine; Visit Provider Obstetrics & Gynecology
PROC: (CPT 58573; principal; 2024-08-05 10:30)
DX: N88.8 Other specified noninflammatory disorders of cervix uteri (principal); N70.11 Chronic salpingitis; N80.203 Endometriosis of bilateral fallopian tubes, unspecified depth; D25.9 Leiomyoma of uterus, unspecified; G89.18 Other acute postprocedural pain; I10 Essential (primary) hypertension; E28.2 Polycystic ovarian syndrome; F41.9 Anxiety disorder, unspecified; E66.01 Morbid (severe) obesity due to excess calories; Z68.38 Body mass index [BMI] 38.0-38.9, adult; Z98.890 Other specified postprocedural states; Z98.51 Tubal ligation status; Z90.49 Acquired absence of other specified parts of digestive tract; Z87.891 Personal history of nicotine dependence; Z80.0 Family history of malignant neoplasm of digestive organs
CPT/HCPCS: 58573; S2900; 36415; 80053; 86850; 86900; 86901; 88307; 99199; A9270; J0690; J1100; J1171; J1200; J1885; J2003; J2250; J2405; J2704; J3010; J7030; J7120; Q9968